=== PATIENT | female | born 1935 | race Caucasian/White ===

== ENCOUNTER → 2023-06-20 16:13 | Outpatient (REF) | payer OTHER, SELFPAY | LOC: RCS 16:13 | PROVIDERS: ATTENDING PHYSICIAN Internal Medicine Cardiovascular Disease; FAMILY PHYSICIAN Nurse Practitioner Primary Care | DX: I48.21 Permanent atrial fibrillation (principal); I50.32 Chronic diastolic (congestive) heart failure; R55 Syncope and collapse | CPT/HCPCS: 93306 ==

== ENCOUNTER → 2023-09-14 15:27 | Outpatient (REF) | payer OTHER, SELFPAY ==
[2023-09-14 16:26] LABS: % Basophils 0.2 % (0-2); % Eosinophils 1.7 % (0-6); % Immature Granulocytes 0.2 % (0-0.5); % Lymphocytes 21.4 % (20.5-51.1); % Neutrophils 61.5 % (42.2-75.2); Absolute Eosinophils 0.1 10^3/uL (0-0.7); Absolute Lymphocytes 0.9 10^3/uL (1.2-3.4); Absolute Monocytes 0.6 10^3/uL (0.1-0.6); Absolute Neutrophils 2.5 10^3/uL (1.4-6.5); Hematocrit 36.3 % (37.0-47.0); Hemoglobin 12.6 g/dL (12.0-16.0); Mean Corp Hgb Conc. 34.7 g/dL (33.0-37.0); Mean Corpuscular Hgb 35.2 pg (27.0-31.0); Mean Corpuscular Volume 101.4 fL (81.0-99.0); Nucleated Red Blood Cells % 0 %; Platelet Count 122 10^3/uL (130-400); Red Blood Cell Count 3.58 10^6/uL (4.20-5.40); Red Cell Dist. Width 13.4 % (11.5-14.5); White Blood Cell Count 4.1 10^3/uL (4.8-10.8)
[2023-09-14 16:41] LABS: ALT (SGPT) 18 U/L (0-35); AST (SGOT) 50 U/L (14-36); Albumin 4.2 g/dl (3.5-5.0); Alkaline Phosphatase 78 U/L (38-126); Blood Urea Nitrogen 19 mg/dl (7-17); Direct Bilirubin 0.1 mg/dl (0.0-0.4); Iron 138 ug/dl (37-170); LDH 318 U/L (120-246); Total Bilirubin 0.9 mg/dl (0.2-1.3); Total Protein 6.8 g/dl (6.3-8.2)
[2023-09-14 16:50] LABS: Percent Saturation 42 % (20-50); Total Iron Binding Capacity 323 ug/dl (265-497)
[2023-09-14 17:48] LABS: Folate > 20.0 ng/ml (2.76-20); Vitamin B12 979 pg/ml (239-931)
[2023-09-17 07:57] LABS: ANA, IgG Reflex to HEp-2 None Detected (None Detected)
== END ==
LOC: REG 15:27
PROVIDERS: ATTENDING PHYSICIAN Internal Medicine Hematology & Oncology; FAMILY PHYSICIAN Nurse Practitioner Primary Care
DX: D69.6 Thrombocytopenia, unspecified (principal); D75.89 Other specified diseases of blood and blood-forming organs
CPT/HCPCS: 36415; 80076; 82565; 82607; 82728; 82746; 82784; 83521; 83540; 83550; 83615; 84155; 84165; 84520; 85025; 85045; 86038; 86334

== ENCOUNTER 2023-09-18 20:47 | Observation (INO) | payer OTHER, SELFPAY ==
[2023-09-18] VITALS (7 sets, daily range): BP systolic 159–184; BP diastolic 66–99; BMI 30.7; BMI 29.5
--- NOTE | 2023-09-18 16:32 | EDRN ---
Dr. Galindo in to see pt.
--- NOTE | 2023-09-18 16:33 | ED.GENMED ---
History of Present Illness
General
Chief Complaint: Back Pain
Source: patient
Exam Limitations: none
Time Seen by Provider: 09/18/23 16:25
History of Present Illness
History of Present Illness:
See MDM
Past History
Past History
ED Past Medical History: Arrthythmia (Atrial fib), HTN and Hypercholesterolemia
ED Past Surgical History: Bowel resection, Cardiac (cardioversion), Cholecystectomy and Orthopedic (Jaswinder knee replacements)
Social History
Tobacco: Non-smoker
Alcohol: Occasional
Drug: None
Personal:
Living: alone
Employment: Retired
Family History
Family History: Other (Noncontributory)
Phy Exam
Physical Exam
Physical Exam:
See MDM
Course
Orders/Labs/Results
Orders:
Orders
09/18/23 16:32
Lidocaine [Lidocaine 4% Patch] 1 patch TOPICAL ONCE ONE
Apply Lidocaine patch(s) to:: low back
Lumbar Spine Complete, 4 View [CR Lumbar Spine Comp Min 4 Vw*] Urgent
Comment:
Reason For Exam: low back pain
09/18/23 17:50
Complete Blood Count/With Diff Urgent
Comprehensive Metabolic Panel Urgent
Abnormal Lab Results
09/18/23
17:50
WBC 4.1 L 10^3/uL
(4.8-10.8)
RBC 3.84 L 10^6/uL
(4.20-5.40)
MCV 100.3 H fL
(81.0-99.0)
MCH 35.2 H pg
(27.0-31.0)
Plt Count 120 L 10^3/uL
(130-400)
MPV 13.2 H fL
(7.4-10.4)
Absolute Lymphs (auto) 0.9 L 10^3/uL
(1.2-3.4)
Monocytes % 13.8 H %
(1.7-9.3)
AST 55 H U/L
(14-36)
09/18/23 17:50
09/18/23 17:50
Vital Signs
Initial and Last Documented VS:
Initial Vital Signs
Temp Pulse Resp BP Pulse Ox
97.8 F 78 18 168/99 98
09/18/23 13:55 09/18/23 13:55 09/18/23 13:55 09/18/23 13:55 09/18/23 13:55
Last Documented Vital Signs
Temp Pulse Resp BP Pulse Ox
97.8 F 76 16 162/73 97
09/18/23 13:55 09/18/23 18:00 09/18/23 18:00 09/18/23 18:00 09/18/23 18:00
MDM/Problems Addressed
Differential Diagnosis Includes:
HPI and MDM Narrative:
88-year-old female presenting for evaluation of back pain. She states the pain has been intermittent and getting worse over the past several weeks. Patient developed low back pain and she walks. After rest, it resolves. He does not go to her
legs. She denies numbness or tingling. She has an outpatient MRI scheduled.
On exam, she is well-appearing toxic. Patient localizes the pain to the paralumbar musculature. Will place lidocaine patch and obtain x-ray. Her extremities are otherwise neurovascularly intact
Physical exam
General: Well appearing and non-toxic
HEENT: protecting airway
Neck: appears supple
CV: No evidence of cyanosis
Resp: No accessory muscle use
Abd: Non-distended
Back: Paralumbar musculature spasm. No midline tenderness
Extremities: No deformities. Both legs neurovascular intact. Negative straight leg raise
Neuro: alert
Psych: Normal affect
Skin: Intact
Problems Addressed including Acute and Chronic Conditions affecting care:
1. Back pain
Acuity: acute on chronic
Prognosis: stable
Details: Will obtain lumbar x-ray but discussed the importance of keeping her MRI appointment. Will place a lidocaine patch
Updates
Lumbar x-ray shows degenerative changes. Given the ongoing symptoms, will admit for PT evaluation and possible MRI
Differential Diagnosis (but not limited to): Lumbar strain, sciatica
Testing considered: urinalysis but she denies symptoms
Drug therapy (if applicable): OTC meds, please see d/c instruction regarding Rx drugs
Amount and/or Complexity of Data Reviewed
Clinical info obtained from: Patient
External data reviewed: N/A
Labs I independently reviewed (but not limited to): White blood cell count normal
Radiology: X-ray independently reviewed: Lumbar x-ray negative for fracture
Pulse Ox: not hypoxic
EKG independently reviewed: N/A
Forepart Rounder: N/A
Critical Care: N/A
Risk of Complication:
Social Determinants of health: Good social support
Discussed with other providers: Admit
Escalation of Care includes Admit/Obs: Given the ongoing pain and concern for unstable environment at home, will admit for PT evaluation
Occasional wrong word or 'sound a like' substitutions may have occurred due to the inherent limitations of voice recognition software. Read the chart carefully and recognize, using context, where substitutions have occurred.
*Critical Care Note
Total Time (30-74mins, 75-104mins- exclusive of procedures): Not Applicable
ED Attending Note
-
Portions of this chart may have been created with voice recognition software.� Occasional wrong word or��sound alike� substitutions may have occurred due to the inherent limitations of voice recognition software.
Discharge Plan
Departure
Patient Disposition: Admit
Date of Disposition: 09/18/23
Time of Disposition: 19:24
Admit to: Med/Surg
Presentation/result/management discussed w/ accepting MD/DO: Hospitalist
Discharge Problem:
Low back pain
Prescriptions:
No Action
furosemide 20 MG tablet
20 mg PO BID
potassium chloride 20 MEQ tablet,ER particles/crystals
20 meq PO BID
warfarin [Jantoven] 1 MG tablet
3 mg PO DAILY
atorvastatin 10 MG tablet
10 mg PO QPM
metoprolol tartrate 50 mg Tablet
50 mg PO BID
multivitamin Tablet
1 tab PO DAILY
acetaminophen 500 mg Tablet
1,000 mg PO BID
escitalopram oxalate [Lexapro] 10 mg Tablet
10 mg PO DAILY
Calcium + D
1 tab PO DAILY
Rx Instructions:
1200 calcium/ 100 Vitamin D3
ranitidine HCl 40 MG tablet
40 mg PO HS
Referrals:
Yfn Will MD [Family Provider] -
Interventions
Interventions:
*Risk Screen - Suicide Last Done: 09/18/23 13:55
*General Assessment Last Done: 09/18/23 13:55
*Neglect/Abuse Screening Last Done: 09/18/23 13:55
ED- Fall Risk Assessment Last Done: 09/18/23 16:25
*ED COVID-19 Vaccine History Last Done: 09/18/23 16:25
ED-Musculoskeletal Assessment Last Done: 09/18/23 16:26
Discharge Date and Time
Print Language: GREEK
--- NOTE | 2023-09-18 16:43 | EDRN ---
Pt voiding on bedpan at this time. Pt stated it was an emergency and said unable to walk w/ walker only w/ w/c not in room.
[2023-09-18] MEDS: LIDOCAINE 4% PATCH 1 PATCH TOPICAL (16:50)
--- NOTE | 2023-09-18 16:55 | EDRN ---
Friends who were w/ pt saw pt at the house and said pt when she got the pain while using w/c to walk bent way to L and backwards and they thought if they were not there pt would have fallen.
--- NOTE | 2023-09-18 17:59 | EDRN ---
Pt's friends informed pt that she was a max assist up the stairs prior to her leaving in ambulance her house to get her belongings and w/out their assist she would have surely fallen. pt was then okay w/ admission for PT evaluation.
[2023-09-18 18:26] LABS: ALT (SGPT) 20 U/L (0-35); AST (SGOT) 55 U/L (14-36); Albumin 4.5 g/dl (3.5-5.0); Alkaline Phosphatase 92 U/L (38-126); Blood Urea Nitrogen 17 mg/dl (7-17); Calcium 9.9 mg/dl (8.4-10.2); Carbon Dioxide 30 mmol/L (22-30); Chloride 100 mmol/L (98-107); Estimated Creatinine Clearance 45 ml/min; Glucose 89 mg/dl (70-99); Potassium 3.7 mmol/L (3.5-5.1); Sodium 138 mmol/L (135-145); Total Bilirubin 1.2 mg/dl (0.2-1.3); Total Protein 7.2 g/dl (6.3-8.2); eGFR > 60.00
[2023-09-18 18:39] LABS: % Basophils 0.2 % (0-2); % Eosinophils 0.7 % (0-6); % Immature Granulocytes 0.2 % (0-0.5); % Lymphocytes 22.1 % (20.5-51.1); % Monocytes 13.8 % (1.7-9.3); Absolute Lymphocytes 0.9 10^3/uL (1.2-3.4); Absolute Monocytes 0.6 10^3/uL (0.1-0.6); Absolute Neutrophils 2.6 10^3/uL (1.4-6.5); Hematocrit 38.5 % (37.0-47.0); Hemoglobin 13.5 g/dL (12.0-16.0); Mean Corp Hgb Conc. 35.1 g/dL (33.0-37.0); Mean Corpuscular Hgb 35.2 pg (27.0-31.0); Mean Corpuscular Volume 100.3 fL (81.0-99.0); Mean Platelet Volume 13.2 fL (7.4-10.4); Nucleated Red Blood Cells % 0 %; Platelet Count 120 10^3/uL (130-400); Red Blood Cell Count 3.84 10^6/uL (4.20-5.40); Red Cell Dist. Width 13.2 % (11.5-14.5); White Blood Cell Count 4.1 10^3/uL (4.8-10.8)
--- NOTE | 2023-09-18 19:58 | HPS.HSE ---
Family Physician
-
Family Physician: Yfn Will
Chief Complaint
-
lower back pain
History of Present Illness
88-year-old female past medical history of spinal stenosis status post laminectomies less than a decade ago, spinal cyst status post resection, paroxysmal atrial fibrillation on Eliquis, hypertension, hyperlipidemia, obstructive sleep apnea, mild
carotid disease presenting with worsening intermittent back pain ongoing for at least a few months if not a year. She states that she ambulates with a walker and sometimes leaves the walker which she thinks may have aggravated her pain. She has
pain in her lower back that radiates across the back. Pain does not radiate to the legs. Pain is worse when she squats or walks. She denies any incontinence. She denies any fevers or chills. She gets sweaty sometimes when she has the pain.
She denies smoking or alcohol use.
Medical History
Past Medical History
Past Medical History: Reports Other ( spinal stenosis status post laminectomies less than a decade ago, spinal cyst status post resection, paroxysmal atrial fibrillation on Eliquis, hypertension, hyperlipidemia, obstructive sleep apnea, mild carotid
disease)
Past Surgical History: Reports Other (Bowel resection, Cardiac (cardioversion), Cholecystectomy and Orthopedic (Jaswinder knee replacements))
Social History
Tobacco: Non-smoker
Alcohol: None
Drug: None
Family History
Family History: Not pertinent
Allergies / Home Medications
Allergies reflects when Allergies were last updated in [facility].
Home Medications with original date entered in [facility]
Allergy/Medication List:
Allergies
Allergy/AdvReac Type Severity Reaction Status Date / Time
spironolactone Allergy Syncopy Verified 09/13/22 11:47
[From Aldactone]
Home Medications
furosemide 20 mg tablet 40 mg PO DAILY 11/13/18
potassium chloride 20 mEq tablet,extended release(part/cryst) 20 meq PO BID 11/13/18
warfarin 1 mg tablet (Jantoven) 3 mg PO DAILY 01/24/19
atorvastatin 10 mg tablet 10 mg PO QPM 03/17/19
metoprolol tartrate 50 mg tablet 50 mg PO BID 07/27/22
acetaminophen 500 mg tablet 1,000 mg PO BID 09/09/22
calcium carbonate 600 mg-vitamin D3 10 mcg (400 unit) tablet (Calcium 600 + D(3)) 1 tab PO DAILY 09/09/22
multivitamin 1 tab PO DAILY 09/09/22
donepezil 5 mg tablet 5 mg PO HS 09/18/23
levothyroxine 50 mcg tablet 50 mcg PO DAILY 09/18/23
metoprolol succinate 50 mg tablet,extended release 24 hr 50 mg PO BID 09/18/23
rivaroxaban 20 mg tablet (Xarelto) 20 mg PO DAILY 09/18/23
vibegron 75 mg tablet (Gemtesa) 75 mg PO DAILY 09/18/23
Review of Systems
-
History Source: Patient
A 12 point ROS was completed and negative except as noted: Yes
Constitutional: Reports No Symptoms
EENT: Reports No Symptoms
Respiratory: Reports No Symptoms
Cardiac: Reports No Symptoms
Abdomen/GI: Reports No Symptoms
: Reports No Symptoms
Musculoskeletal: Reports See HPI
Skin: Reports No Symptoms
Neurological: Reports No Symptoms
Endocrine: Reports No Symptoms
Hematologic/Lymphatic: Reports No Symptoms
Psych: Reports No Symptoms
Physical Exam
Vital Signs
Vital Signs
Temp Pulse Resp BP Pulse Ox
97.8 F 76 16 162/73 97
09/18/23 13:55 09/18/23 18:00 09/18/23 18:00 09/18/23 18:00 09/18/23 18:00
Physical Exam
General: Well Developed, Well Nourished and No Apparent Distress
HEENT: NormoCephalic, Moist mucous membranes and Atraumatic
Respiratory: Clear
Cardiac: S1/S2 and Regular Rhythm; No Murmur or Rub
GI: Soft, Non Tender, Non Distended and Normal Bowel Sounds; No Organomegaly
Rectal: Deferred by Provider
Musculoskeletal: No Clubbing, No Cyanosis, No Edema and Other (no spinal tenderness, straight leg raise test negative )
Skin: No Rash
Neuro: Nonfocal/grossly intact
Laboratory Results
-
09/18/23 17:50
09/18/23 17:50
Laboratory Results
Total Bilirubin 1.2 mg/dl (0.2-1.3) 09/18/23 17:50
AST 55 U/L (14-36) H 09/18/23 17:50
ALT 20 U/L (0-35) 09/18/23 17:50
Alkaline Phosphatase 92 U/L (38-126) 09/18/23 17:50
Data Reviewed
-
Lab Data: Labs Reviewed by me
Old Records: Reviewed
Impression/Plan
-
IMPRESSION:
PLAN:
# Acute on chronic lower back pain secondary to severe spinal stenosis
# History of spinal stenosis status post laminectomies
-Lumbar x-ray shows moderate degenerative disc disease L4-L5, slightly progressed, mild to moderate degenerative disc disease at L1-L2 slightly progressed
-Lumbar MRI from last year shows severe spinal stenosis at L4-L5
-Tylenol, lidocaine patch, tramadol for pain
-Strength and straight leg raise test are normal, clinically no urgent need for MRI however was apparently recommended by Crescencio to have MRI lumbar spine
-Check MRI lumbar spine
-PT/OT
History of spinal cyst status post resection
Mild chronic thrombocytopenia
-Stable
Paroxysmal atrial fibrillation
-Continue xarelto
-Continue metoprolol
Essential hypertension
Mild carotid artery disease
Hyperlipidemia
-Continue statin
Obstructive sleep apnea
Dementia
-continue donepezil
Hypothyroidism
-continue synthroid
Urge Incontinence
-continue Gemtessa
Chronic Lower extremity edema
-no history of CHF in chart
-continue lasix
DNR/DNI
DVT prophylaxis�Eliquis
Regular diet
[2023-09-18] MEDS: ARICEPT 5 MG PO (22:11)
--- NOTE | 2023-09-18 22:42 | W.PN.UPDATE ---
Update Note
Progress Note Update
Notified by nursing patient would like to change code status to FULL code. Upon visit, patient AAOX3. Explained in details of FULL code status, patient reports full understanding. 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
[2023-09-19] MEDS: TYLENOL 650 MG PO (01:41)
[2023-09-19 06:00] VITALS: BMI 29.4
[2023-09-19] MEDS: SYNTHROID 50 MCG PO (06:03)
[2023-09-19 07:00] VITALS: BP 159/98
[2023-09-19] MEDS: LASIX 40 MG PO (08:05)
[2023-09-19] MEDS: OSCAL 500 + D 500 MG PO (08:05)
[2023-09-19] MEDS: TOPROL XL 50 MG PO (08:05)
[2023-09-19] MEDS: KCL 20 MEQ PO (08:05)
[2023-09-19] MEDS: THERAGRAN 1 TABLET PO (08:05)
[2023-09-19] MEDS: XARELTO 15 MG PO (08:05)
[2023-09-19] MEDS: LIDOCAINE 4% PATCH 1 PATCH TOPICAL (08:06)
[2023-09-19 08:58] LABS: Hematocrit 35.4 % (37.0-47.0); Hemoglobin 12.6 g/dL (12.0-16.0); Mean Corp Hgb Conc. 35.6 g/dL (33.0-37.0); Mean Corpuscular Hgb 36.1 pg (27.0-31.0); Mean Corpuscular Volume 101.4 fL (81.0-99.0); Mean Platelet Volume 13.2 fL (7.4-10.4); Platelet Count 116 10^3/uL (130-400); Red Blood Cell Count 3.49 10^6/uL (4.20-5.40); Red Cell Dist. Width 13.2 % (11.5-14.5); White Blood Cell Count 3.3 10^3/uL (4.8-10.8)
[2023-09-19 09:15] LABS: Blood Urea Nitrogen 18 mg/dl (7-17); Calcium 9.2 mg/dl (8.4-10.2); Carbon Dioxide 30 mmol/L (22-30); Chloride 101 mmol/L (98-107); Estimated Creatinine Clearance 43 ml/min; Glucose 89 mg/dl (70-99); Sodium 136 mmol/L (135-145); eGFR > 60.00
[2023-09-19 11:10] VITALS: BP 145/73; PULSE 73
[2023-09-19 11:15] VITALS: BP 145/73; PULSE 73
--- NOTE | 2023-09-19 14:24 | W.DS.TRANS ---
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
-
Discharge Instructions:
Discharge Diagnosis/Procedures Chronic back pain seconadary to spinal stenosis
Diet Regular
Instructions:
Stand-Alone Forms:
Changes to Home Medications: No
Discharge Medications:
DC Medications w/original date entered in [facility]
furosemide 20 mg tablet 40 mg PO DAILY Fluid Retention/Swelling 11/13/18
potassium chloride 20 mEq tablet,extended release(part/cryst) 20 meq PO BID Electrolyte Repletion 11/13/18
atorvastatin 10 mg tablet 10 mg PO QPM High Cholesterol 03/17/19
acetaminophen 500 mg tablet 1,000 mg PO BID Pain 09/09/22
calcium carbonate 600 mg-vitamin D3 10 mcg (400 unit) tablet (Calcium 600 + D(3)) 1 tab PO DAILY Supplement 09/09/22
multivitamin 1 tab PO DAILY Supplement 09/09/22
donepezil 5 mg tablet 5 mg PO HS dementia 09/18/23
levothyroxine 50 mcg tablet 50 mcg PO DAILY Thyroid 09/18/23
metoprolol succinate 50 mg tablet,extended release 24 hr 50 mg PO BID Blood Pressure 09/18/23
rivaroxaban 20 mg tablet (Xarelto) 20 mg PO DAILY Blood Clot Prevention/Tx 09/18/23
vibegron 75 mg tablet (Gemtesa) 75 mg PO DAILY Urinary Issue 09/18/23
lidocaine 4 % topical patch 1 patch topical DAILY #30 ea 09/19/23
Home Medication Changes
Pending Results: No
[2023-09-19 15:00] VITALS: BP 119/63
--- NOTE | 2023-09-19 17:18 | CM ---
Reviewed chart, spoke with patient who stated that she lives at [facility] by herself. She stated that she was independent with all ADLs, personal care, dressing and bathing. She ambulates without device. She is able to cook, clean do
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 Patient has a son nearby who is supportive. Patient stated that she used to work for [employer].
Patient stated that she would like to return home when medically cleared for discharge and did not want VN.
Plan: Case management will continue to follow and assist with discharge planning. Home no needs.
== END 2023-09-19 17:20 | disposition home or self-care (01) ==
LOC: 3 WEST ACU 20:47
PROVIDERS: ADMITTING PHYSICIAN Hospitalist; ATTENDING PHYSICIAN Internal Medicine; EMERGENCY PHYSICIAN Student in an Organized Health Care Education/Training Program; FAMILY PHYSICIAN Internal Medicine Geriatric Medicine
DX: M48.04 Spinal stenosis, thoracic region (principal); M48.061 Spinal stenosis, lumbar region without neurogenic claudication; M51.04 Intervertebral disc disorders with myelopathy, thoracic region; M54.9 Dorsalgia, unspecified; M54.50 Low back pain, unspecified; M41.9 Scoliosis, unspecified; M51.37 Other intervertebral disc degeneration, lumbosacral region; M47.816 Spondylosis without myelopathy or radiculopathy, lumbar region; I10 Essential (primary) hypertension; M51.36 Other intervertebral disc degeneration, lumbar region; E78.00 Pure hypercholesterolemia, unspecified; I48.0 Paroxysmal atrial fibrillation; G89.29 Other chronic pain; D69.6 Thrombocytopenia, unspecified; I77.9 Disorder of arteries and arterioles, unspecified; E78.5 Hyperlipidemia, unspecified; G47.33 Obstructive sleep apnea (adult) (pediatric); F03.90 Unspecified dementia, unspecified severity, without behavioral disturbance, psychotic disturbance, mood disturbance, and anxiety; E03.9 Hypothyroidism, unspecified; N39.41 Urge incontinence; R60.0 Localized edema; Z79.890 Hormone replacement therapy; Z79.01 Long term (current) use of anticoagulants; Z90.49 Acquired absence of other specified parts of digestive tract; Z96.653 Presence of artificial knee joint, bilateral; Z66 Do not resuscitate
CPT/HCPCS: 72110; 72148; 80048; 80053; 85025; 85027; 97162; 97166; 97535; 99285; G0378

== ENCOUNTER → 2023-10-10 16:28 | Outpatient (REF) | payer OTHER, SELFPAY | LOC: RAD 16:28 | PROVIDERS: ATTENDING PHYSICIAN Internal Medicine Hematology & Oncology; FAMILY PHYSICIAN Nurse Practitioner Primary Care | DX: D69.6 Thrombocytopenia, unspecified (principal); D75.89 Other specified diseases of blood and blood-forming organs | CPT/HCPCS: 76705 ==

== ENCOUNTER → 2023-11-24 14:48 | Outpatient (REF) | payer OTHER, SELFPAY | LOC: RAD 14:48 | PROVIDERS: ATTENDING PHYSICIAN Nurse Practitioner Primary Care | DX: R61 Generalized hyperhidrosis (principal); R05.1 Acute cough; D75.89 Other specified diseases of blood and blood-forming organs; R63.4 Abnormal weight loss | CPT/HCPCS: 71260; 74177; Q9967 ==

== ENCOUNTER 2024-07-20 17:30 | Emergency (ER) | payer OTHER, SELFPAY ==
[2024-07-20 17:32] VITALS: BP 199/93
--- NOTE | 2024-07-20 17:42 | ED.MUSCINJ ---
HPI-Injury
General
Chief Complaint: Fall
Time Seen by Provider: 07/20/24 17:35
History of Present Illness-Injury
Initial Injury comments:
Patient is a 89-year-old woman with history of atrial fibrillation on Xarelto presenting to the emergency department after a fall with head strike. Patient states that she usually uses a walker however she was checking out the [employer] store when the
walker was behind her. She lost her footing and fell backwards hitting her head. She did not lose consciousness. No numbness tingling. No weakness. No lightheadedness dizziness prior to the fall. She states that she has a small hematoma to the
back of her head and it hurts there. Denies any other complaints.
Past History
Past History
ED Past Medical History: Arrthythmia (Atrial fib), HTN and Hypercholesterolemia
ED Past Surgical History: Bowel resection, Cardiac (cardioversion), Cholecystectomy and Orthopedic (Jaswinder knee replacements)
Social History
Tobacco: Non-smoker
Alcohol: Occasional
Drug: None
Personal:
Living: alone
Employment: Retired
Family History
Family History: Other (Noncontributory)
Phy Exam
Physical Exam
Physical Exam:
GENERAL: no acute distress
HEENT: Dried blood to the posterior head with a small abrasion, bleeding is controlled, extraocular muscles intact
NECK: no midline tenderness
BACK: no midline tenderness, no other obvious trauma
CHEST: no tenderness, no flail segment, no subcutaneous emphysema, no other obvious trauma
LUNGS: clear to auscultation bilaterally
CARDIOVASCULAR: regular rate and rhythm
ABDOMEN: soft, non-tender, no masses, no other obvious trauma
PELVIS: stable, no obvious injury
EXTREMITIES: moving all extremities, distal pulses intact, no other obvious trauma
NEUROLOGIC: awake, alert x 3, no focal deficits
Injury Course
Orders/Labs/Results
Orders:
Orders
07/20/24 17:35
CT Cervical Spine W/o Iv Contr Urgent
Comment:
Reason For Exam: fall
CT Head W/o Iv Contrast Urgent
Comment:
Reason For Exam: fall
07/20/24 17:44
Tetanus/Diphth/Acelpertussis [Adacel] 0.5 ml IM .ONCE ONE
Procedures
Laceration Closure
scalp:
Status of Wound: clean
Size of Wound in cm: 3
Description of Wound Edges: sharp
Preparation: cleaned with saline
Revision/Debridement: routine- no revision
Wound exploration: explored to base- no FB
Type of Closure: single layer closure
Skin Closure Material: skin dave (4)
MDM/Problems Addressed
Differential Diagnosis Includes:
Patient is a 89-year-old woman presenting to the emergency department after mechanical fall with head strike on thinners. Vitals notable for hypertension and exam shows a small hematoma and dried blood to the posterior head. Concern for traumatic
intracranial injury. Will obtain CT scans. Will clean out wound to evaluate for any underlying lacerations. Will update tetanus.
After cleansing the area there was a 3 cm laceration to the posterior head. Laceration closed with 4 dave without complication. Please see procedure note above. CT scan of the head per my interpretation with no obvious hemorrhage. Official
read about the head and neck negative. Patient ambulatory. Will discharge at this time.
*Critical Care Note
Total Time (30-74mins, 75-104mins- exclusive of procedures): Not Applicable
ED Attending Note
-
Portions of this chart may have been created with voice recognition software.� Occasional wrong word or��sound alike� substitutions may have occurred due to the inherent limitations of voice recognition software.
Discharge Plan
Departure
Patient Disposition: Home (Routine Discharge)
Date of Disposition: 07/20/24
Time of Disposition: 18:20
Patient with high blood pressure during this ER visit?: Yes
Discharge Problem:
Fall, Laceration
Instructions: Head Injury in Adults (DC), Laceration Repair With Dave (DC)
Prescriptions:
No Action
furosemide 20 MG tablet
40 mg PO DAILY
potassium chloride 20 MEQ tablet,ER particles/crystals
20 meq PO BID
atorvastatin 10 MG tablet
10 mg PO QPM
multivitamin Tablet
1 tab PO DAILY
acetaminophen 500 mg Tablet
1,000 mg PO BID
calcium carbonate-vitamin D3 [Calcium 600 + D(3)] 600 mg-10 mcg (400 unit) Tablet
1 tab PO DAILY
donepezil 5 mg tablet
5 mg PO HS
metoprolol succinate 50 mg tablet extended release 24 hr
50 mg PO BID
levothyroxine 50 mcg tablet
50 mcg PO DAILY
Xarelto 20 mg Tablet
20 mg PO DAILY
Gemtesa 75 mg tablet
75 mg PO DAILY
lidocaine 4 % Adhesive Patch,Medicated
1 patch topical DAILY Qty: 30 0RF
Activity Restrictions/Additional Instructions:
You were seen in the Emergency Department today for a fall. While you were here we performed CT scan, which was reassuring. Please make sure you have your dave removed in 7-10 days by your primary care doctor.
We would like for you to follow up with your primary care physician for further evaluation. If you experience fever, worsening of your symptoms, or develop any other new or concerning symptoms, please return to the Emergency Department immediately.
Please see the attached sheet for additional information.
You do have4 dave. Please follow-up with your PCP to have them removed in 7-10 days. Please keep the area clean and dry for the first 24 hours. Afterwards you may wash the area. If you develop any fevers, chills, redness or drainage from the site
please come back to the emergency department.
Interventions
Interventions:
*General Assessment Last Done: 07/20/24 17:32
Discharge Date and Time
Print Language: PALAUAN
[2024-07-20] MEDS: ADACEL 0.5 ML IM (18:04)
== END 2024-07-20 19:08 | disposition home or self-care (01) ==
LOC: EMR 17:30
PROVIDERS: EMERGENCY PHYSICIAN Student in an Organized Health Care Education/Training Program; FAMILY PHYSICIAN Nurse Practitioner Primary Care
DX: S01.01XA Laceration without foreign body of scalp, initial encounter (principal); S00.03XA Contusion of scalp, initial encounter; W01.0XXA Fall on same level from slipping, tripping and stumbling without subsequent striking against object, initial encounter; Y92.89 Other specified places as the place of occurrence of the external cause; Z23 Encounter for immunization; I48.91 Unspecified atrial fibrillation; I10 Essential (primary) hypertension; E78.00 Pure hypercholesterolemia, unspecified; Z79.01 Long term (current) use of anticoagulants; Z96.653 Presence of artificial knee joint, bilateral; Z98.0 Intestinal bypass and anastomosis status; Z90.49 Acquired absence of other specified parts of digestive tract; Z88.8 Allergy status to other drugs, medicaments and biological substances
CPT/HCPCS: 99284; 12002; 90471; 70450; 72125; 90715

== ENCOUNTER 2024-11-27 12:26 | Inpatient (IN) | payer OTHER, SELFPAY ==
[2024-11-24] VITALS (9 sets, daily range): BP systolic 136–183; BP diastolic 55–86; PULSE 74–91; BMI 23.8
[2024-11-24 16:06] LABS: Hematocrit 36.3 % (37.0-47.0); Hemoglobin 12.4 g/dL (12.0-16.0); Mean Corp Hgb Conc. 34.2 g/dL (33.0-37.0); Mean Corpuscular Volume 105.8 fL (81.0-99.0); Nucleated Red Blood Cells % 0 %; Red Cell Dist. Width 12.2 % (11.5-14.5)
[2024-11-24 16:18] LABS: ALT (SGPT) 29 U/L (0-35); AST (SGOT) 62 U/L (14-36); Albumin 4.1 g/dl (3.5-5.0); Alkaline Phosphatase 79 U/L (38-126); Blood Urea Nitrogen 24 mg/dl (7-17); Calcium 8.9 mg/dl (8.4-10.2); Carbon Dioxide 29 mmol/L (22-30); Chloride 105 mmol/L (98-107); Estimated Creatinine Clearance 37 ml/min; Glucose 96 mg/dl (70-99); Potassium 4.1 mmol/L (3.5-5.1); Sodium 139 mmol/L (135-145); Total Protein 6.6 g/dl (6.3-8.2); eGFR > 60.00
--- NOTE | 2024-11-24 16:46 | ED.GENMED ---
History of Present Illness
<JEAN Jolley - Last Filed: 11/24/24 21:47>
General
Chief Complaint: Fall
Source: patient
Exam Limitations: none
Time Seen by Provider: 11/24/24 16:40
Nursing documentation reviewed up to this point in time: agreed with
History of Present Illness
History of Present Illness:
Patient is an 89-year-old female with a past medical history of A-fib on Xarelto, hypertension hyperlipidemia cognitive impairment skin cancer presents to the ER for evaluation. Patient reports around 12 PM she was leaning to get something on the
floor and when she tried to get up she fell back though she did not hit her head. She could not get herself off the floor. She was on the floor for several hours and crawled herself to her phone and called EMS. When EMS presented she was not able
to stand.
She reports she does have known cognitive issues though lives alone. She was recently started on Rivastigmine.
She denies any chest pain shortness of breath fever chills..
Past History
<JEAN Jolley - Last Filed: 11/24/24 21:47>
Past History
ED Past Medical History: Arrthythmia (Atrial fib), HTN and Hypercholesterolemia
ED Past Surgical History: Bowel resection, Cardiac (cardioversion), Cholecystectomy and Orthopedic (Jaswinder knee replacements)
Social History
Tobacco: Non-smoker
Alcohol: Occasional
Drug: None
Personal:
Living: alone
Employment: Retired
Family History
Family History: Other (Noncontributory)
Phy Exam
<JEAN Jolley - Last Filed: 11/24/24 21:47>
General Physical Exam
General Presentation: no apparent distress
General age: appears stated age
General Skin: warm and dry
General Habitus: normal
General Mental: alert
General Hydration: dry mucous membranes
Course
<JEAN Jolley - Last Filed: 11/24/24 21:47>
Orders/Labs/Results
Orders:
Orders
11/24/24 15:44
CT Head W/o Iv Contrast Urgent
Comment:
Reason For Exam: fall
11/24/24 15:49
CMP [Comprehensive Metabolic Panel] Urgent
Complete Blood Count/With Diff Urgent
Creatine Phosphokinase Urgent
Comment: ADD ON
TSH Urgent
Comment: ADD ON
Vitamin B12 Urgent
Comment: ADD ON
11/24/24 17:41
Urinalysis Reflex To Culture Urgent
Date Specimen was Collected: 11/24/24
Time Specimen was Collected: 17:25
Urine Microscopic Reflex Cult Urgent
11/24/24 17:55
Add On- LAB Urgent
Tests Added?: cpk
11/24/24 19:15
0.9% Sodium Chloride 500 ml [Nss] 500 ml IV BOLUS
11/24/24 19:41
Orthostatic VS- Treatment ONCE
11/24/24 21:11
Electrocardiogram (*1) Stat
Reason for Study: Other
Other Reason for Exam: chest pain
EKG- Treatment ONCE
11/24/24 21:32
Admit/Transfer Patient As Directed
Co-Sign Provider:
Level of Care: Observation services
Assign to:: Telemetry
Physician / Group: nikky
Diagnosis: fall
Reason for Telemetry: Arrhythmia
Date to Stop Telemetry: 11/27/24
Time to Stop Telemetry: 11:00
Code Status As Directed
Resuscitation Status: Full Code
PRN Pain Medication Management As Directed
May give lesser potent ordered pain med per pt: Yes
preference::
Protocol:: Medication orders for pain may be administered in a
manner that supports deferring to patient preference
when the pt is:
- Requesting an ordered lesser potent pain medication.
Least to most potent pain medications are defined
as: acetaminophen < NSAID < tramadol < opioids
(morphine, oxycodone, hydromorphone).
- Requesting a lesser dose of the same medication IF
ORDERED.
- Requesting a less intrusive route of administration
if both routes are prescribed by the provider (PO <
IV).
11/24/24 21:37
Add On- LAB Routine
Tests Added?: tsh ,b12
11/27/24 11:00
DC Protocol for Telemetry ONCE
Abnormal Lab Results
11/24/24 11/24/24
15:49 17:41
RBC 3.43 L 10^6/uL
(4.20-5.40)
Hct 36.3 L %
(37.0-47.0)
MCV 105.8 H fL
(81.0-99.0)
MCH 36.2 H pg
(27.0-31.0)
Plt Count 87 L 10^3/uL
(130-400)
Absolute Lymphs (auto) 0.6 L 10^3/uL
(1.2-3.4)
Absolute Monos (auto) 0.7 H 10^3/uL
(0.1-0.6)
Neutrophils % 78.9 H %
(42.2-75.2)
Lymphocytes % 8.8 L %
(20.5-51.1)
Monocytes % 11.5 H %
(1.7-9.3)
BUN 24 H mg/dl
(7-17)
AST 62 H U/L
(14-36)
Creatine Kinase 330 H U/L
(30-135)
Urine Ketones 1+ A
(Negative)
Ur Occult Blood Reflex 1+ A
(Negative)
Urine Bacteria (Reflex) Few A
(Negative)
11/24/24 15:49
11/24/24 15:49
Vital Signs
Initial and Last Documented VS:
Initial Vital Signs
Temp Pulse Resp BP Pulse Ox
97.5 F 83 16 154/84 98
11/24/24 15:28 11/24/24 15:28 11/24/24 15:28 11/24/24 15:28 11/24/24 15:28
Last Documented Vital Signs
Temp Pulse Resp BP Pulse Ox
98.1 F 73 16 141/55 97
11/24/24 19:14 11/24/24 21:00 11/24/24 21:00 11/24/24 21:00 11/24/24 18:15
Director Of Athletics consulted with Physician
Director Of Athletics consulted with physician?: Yes
Name of Physician Consulted: Elizabeth
<Justice Johnson MD - Last Filed: 11/24/24 22:04>
Orders/Labs/Results
Orders:
Orders
11/24/24 15:44
CT Head W/o Iv Contrast Urgent
Comment:
Reason For Exam: fall
11/24/24 15:49
CMP [Comprehensive Metabolic Panel] Urgent
Complete Blood Count/With Diff Urgent
Creatine Phosphokinase Urgent
Comment: ADD ON
TSH Urgent
Comment: ADD ON
Vitamin B12 Urgent
Comment: ADD ON
11/24/24 17:41
Urinalysis Reflex To Culture Urgent
Date Specimen was Collected: 11/24/24
Time Specimen was Collected: 17:25
Urine Microscopic Reflex Cult Urgent
11/24/24 17:55
Add On- LAB Urgent
Tests Added?: cpk
11/24/24 19:15
0.9% Sodium Chloride 500 ml [Nss] 500 ml IV BOLUS
11/24/24 19:41
Orthostatic VS- Treatment ONCE
11/24/24 21:11
Electrocardiogram (*1) Stat
Reason for Study: Other
Other Reason for Exam: chest pain
EKG- Treatment ONCE
11/24/24 21:32
Admit/Transfer Patient As Directed
Co-Sign Provider:
Level of Care: Observation services
Assign to:: Telemetry
Physician / Group: nikky
Diagnosis: fall
Reason for Telemetry: Arrhythmia
Date to Stop Telemetry: 11/27/24
Time to Stop Telemetry: 11:00
Code Status As Directed
Resuscitation Status: Full Code
PRN Pain Medication Management As Directed
May give lesser potent ordered pain med per pt: Yes
preference::
Protocol:: Medication orders for pain may be administered in a
manner that supports deferring to patient preference
when the pt is:
- Requesting an ordered lesser potent pain medication.
Least to most potent pain medications are defined
as: acetaminophen < NSAID < tramadol < opioids
(morphine, oxycodone, hydromorphone).
- Requesting a lesser dose of the same medication IF
ORDERED.
- Requesting a less intrusive route of administration
if both routes are prescribed by the provider (PO <
IV).
11/24/24 21:37
Add On- LAB Routine
Tests Added?: tsh ,b12
11/27/24 11:00
DC Protocol for Telemetry ONCE
Abnormal Lab Results
11/24/24 11/24/24
15:49 17:41
RBC 3.43 L 10^6/uL
(4.20-5.40)
Hct 36.3 L %
(37.0-47.0)
MCV 105.8 H fL
(81.0-99.0)
MCH 36.2 H pg
(27.0-31.0)
Plt Count 87 L 10^3/uL
(130-400)
Absolute Lymphs (auto) 0.6 L 10^3/uL
(1.2-3.4)
Absolute Monos (auto) 0.7 H 10^3/uL
(0.1-0.6)
Neutrophils % 78.9 H %
(42.2-75.2)
Lymphocytes % 8.8 L %
(20.5-51.1)
Monocytes % 11.5 H %
(1.7-9.3)
BUN 24 H mg/dl
(7-17)
AST 62 H U/L
(14-36)
Creatine Kinase 330 H U/L
(30-135)
Urine Ketones 1+ A
(Negative)
Ur Occult Blood Reflex 1+ A
(Negative)
Urine Bacteria (Reflex) Few A
(Negative)
11/24/24 15:49
11/24/24 15:49
Vital Signs
Initial and Last Documented VS:
Initial Vital Signs
Temp Pulse Resp BP Pulse Ox
97.5 F 83 16 154/84 98
11/24/24 15:28 11/24/24 15:28 11/24/24 15:28 11/24/24 15:28 11/24/24 15:28
Last Documented Vital Signs
Temp Pulse Resp BP Pulse Ox
98.1 F 73 16 141/55 97
11/24/24 19:14 11/24/24 21:00 11/24/24 21:00 11/24/24 21:00 11/24/24 18:15
<JEAN Jolley - Last Filed: 11/24/24 21:47>
MDM/Problems Addressed
Differential Diagnosis Includes:
Intracranial hemorrhage, dehydration, rhabdomyolysis
MDM/Problems Addressed:
As documented patient is an 89-year-old female with cognitive issues does live alone reached over to get something on the ground and fell back was unable to get herself off the floor. She crawled and got her phone. She was on the floor for the
past several hours she denies hitting her head however she is on Xarelto CAT scan negative no obvious tender. She is dry on exam and her BUN is elevated. She was given fluids. CPK elevated at 330. Urinalysis is negative for infection. With
assistance and with walker walking was attempted however patient unable to walk even with assistance. Will need case management for additional assistance at home or possible placement.
Discussed with ED physician who evaluated patient.
Chronic conditions affecting care:
Cognitive issues, lives alone, A-fib on anticoagulation
<JEAN Jolley - Last Filed: 11/24/24 21:47>
*Radiology
Radiology exam reviewed: radiology read reviewed
*Pulse Oximetry
SaO2: 98
Oxygen Mode of Delivery: Room air
Patient hypoxic: no
*Critical Care Note
Total Time (30-74mins, 75-104mins- exclusive of procedures): Not Applicable
ED Attending Note
<JEAN Jolley - Last Filed: 11/24/24 21:47>
-
Portions of this chart may have been created with voice recognition software.� Occasional wrong word or��sound alike� substitutions may have occurred due to the inherent limitations of voice recognition software.
<Justice Johnson MD - Last Filed: 11/24/24 22:04>
ED Attending Note
Patient seen and examined by attending physician: Yes
ED Attending Note:
Patient who utilizes walker at baseline, with frequent falls, presents to ED secondary to generalized weakness, after losing her balance and falling backwards, when she stood up from cleaning her cats litter. Denies hitting her head. Denies loss
of consciousness. After she fell down, due to weakness, patient was unable to pick herself up. Patient tried for 2 hours, but finally called her neighbors, who subsidy called 911 for assistance. Denies recent illness. Denies recent change in
medications or diet. Denies loss of appetite. Denies loss of sensation or focal weakness. Denies difficulty with speech. Denies headache or dizziness. Denies blurred vision.
Physical Exam
General: mild distress, not acutely ill. afebrile. weak appearing
Head: nc/at. eomi
Neck: supple. normal range of motion.
Heart: s1/s2 regular rate and rhythm
Lungs: no acute respiratory distress. clear bilaterally
Abdomen: normal bowel sounds. not tender.
Neuro: alert and oriented x 3. no focal neurological deficits
Skin: no rash
Psychiatric: well kept. interactive and cooperative
Extremities: LE b/l pitting edema. no calf tenderness.
Patient with an unremarkable workup in ED, including blood work and imaging studies. However, patient even with use of walker, unable to support her weight due to weakness. As such, patient unsafe to be discharged at this time. Patient will be
admitted for further evaluation and treatment, including likely physical therapy evaluation.
Discharge Plan
Departure
Patient Disposition: Admit
Date of Disposition: 11/24/24
Time of Disposition: 21:43
Admit to: Med/Surg
Admit to doctor: hospitalist
Presentation/result/management discussed w/ accepting MD/DO: Hospitalist
Patient with high blood pressure during this ER visit?: Yes
Condition: Fair
Covid-19: Not Applicable
Discharge Problem:
Fall, Acute dehydration, Weakness
Prescriptions:
No Action
furosemide 20 MG tablet
40 mg PO DAILY
potassium chloride 20 MEQ tablet,ER particles/crystals
20 meq PO BID
atorvastatin 10 MG tablet
10 mg PO HS
multivitamin Tablet
1 tab PO DAILY
acetaminophen 500 mg Tablet
1,000 mg PO BID
calcium carbonate-vitamin D3 [Calcium 600 + D(3)] 600 mg-10 mcg (400 unit) Tablet
2 tab PO DAILY
metoprolol succinate 50 mg tablet extended release 24 hr
50 mg PO BID
Xarelto 20 mg Tablet
20 mg PO DAILY
levothyroxine 75 mcg Tablet
75 mcg PO DAILY
rivastigmine 4.6 mg/24 hour Patch 24 Hour
4.6 mg TRANSDERMAL DAILY
Referrals:
Sravani Pelaez CRNP [Family Provider, Internal Medicine]
Discharge Date and Time
Print Language: BULGARIAN
[2024-11-24 17:00] LABS: Platelet Count 87 10^3/uL (130-400)
[2024-11-24 17:50] LABS: Urine Character Clear (Clear)
[2024-11-24 18:12] LABS: Urine Red Blood Cell 0-2 /HPF (0-2); Urine Squamous Cell 0-2 /LPF (Few); Urine White Cell 0-2 /HPF (0-5)
--- NOTE | 2024-11-24 18:20 | EDRN ---
Patient stated that she was cleaning up her cat's litter box and fell. Patient stated that she was unable to get up from the floor. Patient stated that she was on the floor for about 3 hours before she was finally able to reach the phone. Patient
stated 'I told someone earlier that my son won't help me. Can you please change that. He said he will be able to help me.'
[2024-11-24] MEDS: NSS 500 IV (19:25)
--- NOTE | 2024-11-24 21:35 | HPS.HSE ---
Family Physician
-
Family Physician: Sravani Pelaez
Chief Complaint
-
fall
History of Present Illness
89-year-old female past medical history of chronic back pain secondary to spinal stenosis status post laminectomy, spinal cyst status post resection, paroxysmal atrial fibrillation on Xarelto, hypothyroidism, hypertension, hyperlipidemia,
obstructive sleep apnea, mild carotid artery disease, mild cognitive impairment, urge incontinence, chronic lower extremity edema, presenting for follow-up. At 12 PM she was bending down to pickle processor the litter from her cat and she lost her balance
and fell on the ground. She did not hit her head. She denies passing out. She could not get herself off the floor. She was on the floor for several hours and crawled herself to the floor and called EMS. She was not able to stand for EMS. She
lives alone. She was recently started on rivastigmine. She denies any chest pain or shortness of breath or fevers or chills or nausea or vomiting or diarrhea or urinary symptoms.
She had another similar fall a week ago. She occasionally does fall.
She states that for the past year whenever she ambulates with a walker she leans to the left side. When she turns her head she sometimes gets dizzy. She has bilateral knee replacements placed greater than 20 years ago which sometimes ache. She
also sometimes get numbness and decree sensation of her bilateral feet and has difficulty feeling the ground.
She used to be a heavy alcohol drinker. Denies alcohol currently. Denies smoking.
Medical History
Past Medical History
Past Medical History: Reports Other (chronic back pain secondary to spinal stenosis status post laminectomy, spinal cyst status post resection, paroxysmal atrial fibrillation on Xarelto, hypothyroidism, hypertension, hyperlipidemia, obstructive
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
Past Surgical History: Reports Other (Bowel resection, Cardiac (cardioversion), Cholecystectomy and Orthopedic (Jaswinder knee replacements)))
Social History
Tobacco: Non-smoker
Alcohol: Former
Drug: None
Family History
Family History: Not pertinent
Allergies / Home Medications
Allergies reflects when Allergies were last updated in [employer].
Home Medications with original date entered in [employer]
Allergy/Medication List:
Allergies
Allergy/AdvReac Type Severity Reaction Status Date / Time
spironolactone (From Allergy Syncopy Verified 11/24/24 19:30
Aldactone)
Home Medications
furosemide 20 mg tablet 40 mg PO DAILY Fluid Retention/Swelling 11/13/18
potassium chloride 20 mEq tablet,extended release(part/cryst) 20 meq PO BID Electrolyte Repletion 11/13/18
atorvastatin 10 mg tablet 10 mg PO HS High Cholesterol 03/17/19
acetaminophen 500 mg tablet 1,000 mg PO BID Pain 09/09/22
calcium 600 mg (as carbonate)-vitamin D3 10 mcg (400 unit) tablet (Calcium 600 + D(3)) 2 tab PO DAILY Supplement 09/09/22
multivitamin 1 tab PO DAILY Supplement 09/09/22
metoprolol succinate 50 mg tablet,extended release 24 hr 50 mg PO BID Blood Pressure 09/18/23
rivaroxaban 20 mg tablet (Xarelto) 20 mg PO DAILY Blood Clot Prevention/Tx 09/18/23
levothyroxine 75 mcg tablet 75 mcg PO DAILY 11/24/24
rivastigmine 4.6 mg/24 hour transdermal patch 4.6 mg transdermal DAILY 11/24/24
Review of Systems
-
History Source: Patient
A 12 point ROS was completed and negative except as noted: Yes
Constitutional: Reports No Symptoms
EENT: Reports No Symptoms
Respiratory: Reports No Symptoms
Cardiac: Reports No Symptoms
Abdomen/GI: Reports No Symptoms
: Reports No Symptoms
Musculoskeletal: Reports No Symptoms
Skin: Reports No Symptoms
Neurological: Reports No Symptoms
Endocrine: Reports No Symptoms
Hematologic/Lymphatic: Reports No Symptoms
Psych: Reports No Symptoms
Physical Exam
Vital Signs
Vital Signs
Temp Pulse Resp BP Pulse Ox
98.1 F 73 16 141/55 97
11/24/24 19:14 11/24/24 21:00 11/24/24 21:00 11/24/24 21:00 11/24/24 18:15
Physical Exam
General: Well Developed, Well Nourished and No Apparent Distress
HEENT: NormoCephalic, Moist mucous membranes and Atraumatic
Respiratory: Clear
Cardiac: S1/S2 and Regular Rhythm; No Murmur or Rub
GI: Soft, Non Tender, Non Distended and Normal Bowel Sounds; No Organomegaly
Rectal: Deferred by Provider
Musculoskeletal: No Clubbing, No Cyanosis and No Edema
Skin: No Rash
Neuro: Nonfocal/grossly intact
Laboratory Results
-
11/24/24 15:49
11/24/24 15:49
Laboratory Results
Total Bilirubin 0.9 mg/dl (0.2-1.3) 11/24/24 15:49
AST 62 U/L (14-36) H 11/24/24 15:49
ALT 29 U/L (0-35) 11/24/24 15:49
Alkaline Phosphatase 79 U/L (38-126) 11/24/24 15:49
Data Reviewed
-
Lab Data: Labs Reviewed by me
Old Records: Reviewed
Impression/Plan
-
IMPRESSION:
PLAN:
# Ambulatory dysfunction/fall
# Chronic disequilibrium/gait dysfunction possibly secondary to orthostatic hypotension versus peripheral neuropathy from prior alcohol use
- CK 300
- Urinalysis negative
- IV fluids given
-Check orthostatic vital signs
- PT OT/case management
- Outpatient follow-up with neurology
Chronic back pain secondary to spinal stenosis status post laminectomies
History of bilateral knee replacements
Spinal cyst status post resection
Paroxysmal atrial fibrillation
- Continue Xarelto
- Continue metoprolol
Hypothyroidism
- Continue levothyroxine
Essential hypertension
Hyperlipidemia
- Continue statin
Obstructive sleep apnea
Mild carotid artery disease
Mild cognitive impairment
- Continue rivastigmine recently started
Urge incontinence
Chronic lower extremity edema
- Hold Lasix
Former alcohol drinker
Full code
DVT prophylaxis Xarelto
Regular diet
[2024-11-24] MEDS: TYLENOL 650 MG PO (22:43)
[2024-11-24] MEDS: LIPITOR 10 MG PO (22:43)
[2024-11-25] VITALS (9 sets, daily range): BP systolic 137–174; BP diastolic 55–89; PULSE 63–81; BMI 28.0
[2024-11-25 00:08] LABS: TSH 1.30 uIU/ml (0.47-4.68)
[2024-11-25 00:27] LABS: Vitamin B12 851 pg/ml (239-931)
[2024-11-25] MEDS: TYLENOL 650 MG PO ×3 (02:59→18:40)
--- NOTE | 2024-11-25 03:27 | PTCARENOTE ---
Received pt from ER. Pt is on playground monitor- sinus rhythm. AO*3, forgetful, and confused at times. Bed alarm in place. Call noland within reach.
[2024-11-25] MEDS: SYNTHROID 75 MCG PO (05:12)
[2024-11-25] MEDS: OSCAL 500 + D 1000 MG PO (09:17)
[2024-11-25] MEDS: THERAGRAN 1 TABLET PO (09:18)
[2024-11-25] MEDS: KCL 20 MEQ PO ×2 (09:18→20:29)
[2024-11-25] MEDS: EXELON PATCH 4.6 MG TRANSDERM (09:18)
[2024-11-25] MEDS: TOPROL XL 50 MG PO ×2 (09:18→20:29)
[2024-11-25 09:23] LABS: Hematocrit 37.0 % (37.0-47.0); Hemoglobin 12.6 g/dL (12.0-16.0); Mean Corp Hgb Conc. 34.1 g/dL (33.0-37.0); Mean Corpuscular Volume 109.8 fL (81.0-99.0); Platelet Count 83 10^3/uL (130-400); Red Cell Dist. Width 12.5 % (11.5-14.5)
[2024-11-25 09:53] LABS: Absolute Neutrophils -Man Diff 1.3 10^3/uL (1.4-6.5); Anisocytosis Slight; Hypochromasia 1+; Macrocytosis Few; Normal RBC Morphology No; Platelets Checked Yes; Total Cells Counted 100
[2024-11-25] MEDS: XARELTO 20 MG PO (09:53)
[2024-11-25 10:11] LABS: ALT (SGPT) 29 U/L (0-35); AST (SGOT) 57 U/L (14-36); Albumin 3.7 g/dl (3.5-5.0); Alkaline Phosphatase 68 U/L (38-126); Blood Urea Nitrogen 12 mg/dl (7-17); Calcium 8.8 mg/dl (8.4-10.2); Carbon Dioxide 28 mmol/L (22-30); Chloride 105 mmol/L (98-107); Estimated Creatinine Clearance 50 ml/min; Glucose 92 mg/dl (70-99); Potassium 3.5 mmol/L (3.5-5.1); Sodium 138 mmol/L (135-145); Total Protein 6.2 g/dl (6.3-8.2); eGFR > 60.00
--- NOTE | 2024-11-25 10:59 | CM ---
Patient seen bedside, initial assessment completed. Patient admitted for a fall.
Patient resides alone in an 8th floor apartment at [facility]. Elevator access. Patient ambulates w/ a rollator stating she cannot walk without it. Patient is independent w/ ADLs and personal care. Patient has a shower grab bar and shower
chair. Patient has a CPAP that she does not use. Denies SNF/HC hx.
Address, point of contact and insurance verified
PCP: Sravani Pelaez NP
Pharmacy: [facility]
Patient admitted under obs services. GRUBER form verbally reviewed, copy provided, copy on chart
Therapy recommending SNF at d/c
Plan: SNF if patient is agreeable. Will need auth
--- NOTE | 2024-11-25 14:49 | W.PN.HOSP.TC ---
Today's Communication/Plan
-
Assessment / Plan
Assessment / Plan
NAD
Scleral Anicteric
MMM
No JVD
CTABL
RRR, S1/S2
Soft, NT, ND, BS+
Warm, Dry
AAOx3
Calm
Fall mechanical
Unable to get back up
CT brain negative
Check orthostatics
2D echocardiogram
Brain MRI
Carotid ultrasound
Hyperlipidemia
Statin
Hypothyroidism
Continue levothyroxine
Paroxysmal atrial fibrillation
Xarelto
Anticipated Discharge: 24 - 48 hours
Subjective/Interval History
-
Date of Service: November 25, 2024
Seen and examined. No new complaints. No acute overnight events.
Objective Data
-
Labs:
Laboratory Results
11/25/24
08:26
WBC 2.9 L
Hgb 12.6
Hct 37.0
Plt Count 83 L
Sodium 138
Potassium 3.5
Chloride 105
Carbon Dioxide 28
BUN 12
Creatinine 0.7
Glucose 92
Calcium 8.8
Total Bilirubin 1.4 H
AST 57 H
ALT 29
Alkaline Phosphatase 68
Vital Signs:
Vital Signs
Temp Pulse Resp BP Pulse Ox
97.8 F 71 18 138/77 97
11/25/24 11:38 11/25/24 09:18 11/25/24 11:38 11/25/24 09:18 11/25/24 11:38
I&O
11/24/24 11/25/24 11/26/24
06:59 06:59 06:59
Intake Total 980 / 980
Output Total 1350 / 1350 300 / 300
Balance -370 / -370 -300 / -300
--- NOTE | 2024-11-25 18:27 | PTCARENOTE ---
pt c/o feeling funny and warm. pt with flushed face. pt found aflutter on monitor. EKG w/ Afib, Temp 98.7, BP 171/78 HR 82 97% on room air. c/o band like feeling on the head. Dr. Rios Cool notified. no new orders at this time.
[2024-11-25] MEDS: LIPITOR 10 MG PO (20:29)
[2024-11-26] VITALS (8 sets, daily range): BP systolic 122–182; BP diastolic 56–91; PULSE 67–83
[2024-11-26] MEDS: SYNTHROID 75 MCG PO (04:51)
[2024-11-26] MEDS: XARELTO 20 MG PO (08:21)
[2024-11-26] MEDS: EXELON PATCH 4.6 MG TRANSDERM (08:21)
[2024-11-26] MEDS: THERAGRAN 1 TABLET PO (08:21)
[2024-11-26] MEDS: KCL 20 MEQ PO ×2 (08:21→20:21)
[2024-11-26] MEDS: OSCAL 500 + D 1000 MG PO (08:21)
[2024-11-26] MEDS: TOPROL XL 50 MG PO ×2 (08:21→20:21)
[2024-11-26 09:37] LABS: Hematocrit 39.3 % (37.0-47.0); Hemoglobin 13.0 g/dL (12.0-16.0); Mean Corp Hgb Conc. 33.1 g/dL (33.0-37.0); Mean Corpuscular Volume 107.1 fL (81.0-99.0); Nucleated Red Blood Cells % 0 %; Platelet Count 92 10^3/uL (130-400); Red Cell Dist. Width 12.4 % (11.5-14.5)
--- NOTE | 2024-11-26 09:56 | CON.NEURO4 ---
Addendum entered and electronically signed by Pantera Levi MD 11/26/24 17:00:
Studies reviewed.
I have personally examined the patient. I reviewed and agree with the RECEIVING WEIGHER's Note.
My addenda:
Awake, alert, interactive. No acute distress.
Speech intact. Some confused content
Follows 2-step requests w/o difficulty. No tremor.
Extra-ocular movements grossly intact.
Facial movements full and symmetric. Hearing intact to normal conversational volume.
Normal UE movements bilaterally.
Neck: full ROM.
Chest: no dyspnea
Heart: no JVD
Ext: (-) Clubbing, (-) Cyanosis, (-) Edema
IMPRESSIONS/RECOMMENDATIONS:
Abrupt onset of gait dysfunction with the patient being unable to stand up after falling to the floor. 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
Not clear that the patient's small ischemic stroke is the etiology for the patient's inability to get up off the floor. Differential diagnosis includes the possibility of deconditioning as well as orthostasis
Continue rivaroxaban
Continue atorvastatin
Check orthostatic blood pressures
Rehabilitation evaluation and treatment
We will follow as needed.
D/W patient / family / nursing
All questions answered.
Will continue to follow patient.
Original Note:
Documented by User: Marina Taylor NP 11/26/24 13:59
Consultation - Neurology 4
-
CONSULTING PHYSICIAN: Pantera Levi MD
REFERRING PHYSICIAN: Hospitalists/Dr. Cool
DICTATED BY: JEAN Kelsey
DATE/TIME OF REQUEST: 11/26/24
DATE/TIME OF CONSULTATION: 11/26/24
Reason for Consultation: Fall, stroke on MRI brain
History of Present Illness:
This is an 89-year-old female who has presented to the hospital on 11/24/24 with report of a fall. Patient reports that two days ago on 11/24/24 she was leaning over to pick something up off of the floor and when she tried to stand back up she lost
her balance and fell backwards on to the floor. She was unable to get back up and was on the floor for several hours before she was able to crawl to her phone and call EMS. CT head was obtained on arrival and is negative for any acute abnormalities.
She was not a candidate for TNK/IAT due to low NIHSS, outside of time window, and she is taking Xarelto. MRI brain was obtained on 11/25/24 and demonstrates a subacute right centrum semiovale ischemic infarct. Patient denies any headache, dizziness,
vision changes, speech/swallow difficulty, numbness, and weakness. Per her last outpatient PCP encounter, she has been having memory issues, MOCA was 17/30. She is unable to afford neuropsychological testing. She did not tolerate donepezil due to
nightmares, this was stopped and she was recently started on rivastigmine. Patient reports that she occasionally misses doses of her medications or drops them on the ground and doesn't find them until later. She is living alone and still drives
short distances.
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
Surgical History: Cardioversion, cholecystectomy, bowel resection, b/l TKR
Family History: Reviewed and noncontributory.
Social History: Occasional alcohol. Denies tobacco and illicit drug use.
Allergies: Spironolactone.
Home Medications: See below.
Review of Symptoms:
Patient denies any fever, headache, chest pain, shortness of breath, GI or symptoms.
�Per the HPI.�All systems are reviewed negative except above.
Physical Exam:
The patient is afebrile, abdomen is nondistended, breathing is unlabored, skin is warm and dry, no edema.
NIH Stroke Scale:
I performed the NIH stroke scale on the patient on 11/26/24 at 1045. The patient scored 0 points on the NIH stroke scale assessment, which were assigned as follows: See below.
Neurologic Examination:
The patient is awake, alert and oriented x 3. She is able to follow commands and answer questions appropriately. There is no aphasia or dysarthria. On cranial nerve assessment, pupils are 3 mm bilateral, round and reactive to light and
accommodation. Visual mcgill are full. Extraocular movements are intact. Facial sensations are intact and bilaterally symmetrical, there is no facial asymmetry. Hearing is intact bilaterally to normal conversation volume. Tongue palate and uvula are
midline. Sternocleidomastoid strengths are full bilaterally. Motor strengths are 5/5 bilateral upper and lower extremities on medical research Lomax scale. There is no drift or involuntary movement noted. Deep tendon reflexes are 2+ bilateral
upper and lower extremities and Babinski is absent bilaterally. There was no extinction noted on double simultaneous stimulation. Coordination is intact by finger to nose bilaterally.
Lab Results: See below.
Neuro Imaging:
1. MRI brain 11/25/24: Small nonhemorrhagic acute/subacute infarct in the periventricular right centrum semiovale/parietal lobe lesion.
2. Carotid Ultrasound 11/25/24: Minimal calcified carotid bulb plaque on each side, measurements suggestive of less than 50% stenosis on each side as per modified Society of Radiologists in Ultrasound consensus criteria (IAC carotid criteria white
paper, 2020). No significant progression compared to prior study.
Differentials for the patient's presentation include:
1. Subacute small right centrum semiovale ischemic stroke per MRI brain imaging. Unclear if this is related to her recent fall or an incidental finding. Etiology appears to be small vessel disease, although patient does endorse occasional
noncompliance with Xarelto.
2. Possible dementia.
3. Afib.
Patient has the following risk factors for their symptoms: Noncompliance with Xarelto, HTN, HLD, age
IV Tenecteplase/IAT candidacy: She was not a candidate for TNK/IAT due to low NIHSS, outside of time window, and she is taking Xarelto.
Recommendations:
-Continue home Xarelto.
-Goal normotension as this event was greater than 24 hours ago.
-LDL goal <70. LDL is 62, okay to continue home atorvastatin 10mg daily as LDL is at goal.
-Goal normoglycemia, hbA1c is 5.6.
-NIHSS and neurological checks per unit guidelines.
-Provide patient with a stroke education packet.
-PT/OT/ST evaluations.
Discussed patient care with: Dr. Levi, the patient
Vital Signs and Labs
-
Vital Signs and Labs:
Vital Signs
Temp Pulse Resp BP Pulse Ox
97.9 F 67 18 160/74 97
11/26/24 11:50 11/26/24 11:50 11/26/24 11:50 11/26/24 11:50 11/26/24 11:50
Lab Results
11/26/24 09:26
11/26/24 09:26
Sodium 134 mmol/L (135-145) L 11/26/24 09:26
Potassium 3.5 mmol/L (3.5-5.1) 11/26/24 09:26
BUN 11 mg/dl (7-17) 11/26/24 09:26
Glucose 104 mg/dl (70-99) H 11/26/24 09:26
Calcium 9.3 mg/dl (8.4-10.2) 11/26/24 09:26
LDL Cholesterol, Calc 62 mg/dl 11/26/24 09:26
Vitamin B12 851 pg/ml (239-931) 11/24/24 15:49
Medications
-
Active Medications
Generic Name Dose Route Start Last Admin
Trade Name Freq PRN Reason Stop Dose Admin
Acetaminophen 650 mg 11/24/24 22:29 11/25/24 18:40
Acetaminophen 325 Mg Tablet PO 12/22/24 22:28 650 mg
Q4HPRN PRN Administration
mild pain/GUTIERREZ/temp> 100.4F
Atorvastatin Calcium 10 mg 11/24/24 22:29 11/25/24 20:29
Atorvastatin (Lipitor) 10 Mg Tablet PO 12/22/24 22:28 10 mg
HS ART Administration
Calcium/Vitamin D 1,000 mg 11/25/24 08:00 11/26/24 08:21
Calcium Carbonate 500 Mg/Vitamin D 5 Mcg (200 Units) Tablet PO 12/23/24 07:59 1,000 mg
DAILY ART Administration
Levothyroxine Sodium 75 mcg 11/25/24 06:00 11/26/24 04:51
Levothyroxine 75 Mcg Tablet PO 12/23/24 05:59 75 mcg
DAILY @ 0600 ART Administration
Metoprolol Succinate 50 mg 11/25/24 08:00 11/26/24 08:21
Metoprolol 50 Mg Extended Release Tablet PO 12/23/24 07:59 50 mg
BID ART Administration
Multivitamins Therapeutic 1 tablet 11/25/24 08:00 11/26/24 08:21
Multivitamin Tablet PO 12/23/24 07:59 1 tablet
DAILY ART Administration
Potassium Chloride 20 meq 11/25/24 08:00 11/26/24 08:21
Potassium Chloride 20 Meq Extended Release Tablet PO 12/23/24 07:59 20 meq
BID ART Administration
Rivaroxaban 20 mg 11/25/24 08:00 11/26/24 08:21
Rivaroxaban 20 Mg Tablet PO 12/23/24 07:59 20 mg
DAILY ART Administration
Rivastigmine 4.6 mg 11/25/24 08:00 11/26/24 08:21
Rivastigmine (Exelon) 4.6 Mg Patch TRANSDERM 12/23/24 07:59 4.6 mg
DAILY ART Administration
Home Medications
�Medication �Instructions �Recorded
furosemide 20 mg tablet 40 mg PO DAILY Fluid 11/13/18
Retention/Swelling
potassium chloride 20 mEq 20 meq PO BID Electrolyte Repletion 11/13/18
tablet,extended release(part/cryst)
atorvastatin 10 mg tablet 10 mg PO HS High Cholesterol 03/17/19
acetaminophen 500 mg tablet 1,000 mg PO BID Pain 09/09/22
calcium 600 mg (as 2 tab PO DAILY Supplement 09/09/22
carbonate)-vitamin D3 10 mcg (400
unit) tablet (Calcium 600 + D(3))
multivitamin 1 tab PO DAILY Supplement 09/09/22
metoprolol succinate 50 mg 50 mg PO BID Blood Pressure 09/18/23
tablet,extended release 24 hr
rivaroxaban 20 mg tablet (Xarelto) 20 mg PO DAILY Blood Clot 09/18/23
Prevention/Tx
levothyroxine 75 mcg tablet 75 mcg PO DAILY Thyroid 11/24/24
rivastigmine 4.6 mg/24 hour 4.6 mg transdermal DAILY Mental 11/24/24
transdermal patch Health/Anxiety
NIH Stroke Score
Subsequent NIH Scale
Date of Subsequent NIH Scale: 11/26/24
Time of Subsequent NIH Scale: 10:30
NIH Stroke Score
Level of Consciousness: 0 - Alert
LOC Questions: 0-Answers both correctly
LOC Commands: 0-Performs both correctly
Best Horizontal Gaze: 0-Normal
Visual Mcgill: 0=Normal, no visual loss
Facial Palsy: 0=Normal, symmetrical
Motor - Right Arm: 0=No drift 10 seconds
Motor - Left Arm: 0=No drift 10 seconds
Motor - Right Le-No drift 5 seconds
Motor - Left Le-No drift 5 seconds
Limb Ataxia: 0-Absent
Sensation: 0-Normal
Best Language: 0-No aphasia
Dysarthria: 0-Normal
Extinction and Inattention: 0-No abnormality
NIH Total Score:: 0
Modified Sandra (mRS) Score
Modified [place] Scale (mRS): No symptoms
Score: 0
Alteplase Contraindication
Inclusion and Exclusion criteria reviewed: Yes
Reasons for NON-Tx with Thrombolytics ABSOLUTE Exclusions: Greater than 4.5 hrs from onset of sxs
IAT Contraindications: NIHSS < 6

Documented by User: Pantera Levi MD 11/26/24 16:55
NIH Stroke Score
NIH Stroke Score
NIH Total Score:: 0
Modified [place] (mRS) Score
Score: 0
[2024-11-26 10:01] LABS: Blood Urea Nitrogen 11 mg/dl (7-17); Calcium 9.3 mg/dl (8.4-10.2); Carbon Dioxide 28 mmol/L (22-30); Chloride 105 mmol/L (98-107); Estimated Creatinine Clearance 58 ml/min; Glucose 104 mg/dl (70-99); HDL Cholesterol 62 mg/dl; LDL Cholesterol, Calculated 62 mg/dl; Potassium 3.5 mmol/L (3.5-5.1); Sodium 134 mmol/L (135-145); Very Low Density Lipoprotein 17 mg/dl (0-30); eGFR > 60.00
[2024-11-26 10:21] LABS: Glycohemoglobin (HgbA1c) 5.6 % (4.0-5.6)
--- NOTE | 2024-11-26 14:10 | PTOTSP ---
Speech Language Pathology
Pt seen for cognitive-linguistic evaluation via the [place] Cognitive Assessment (MOCA), version 8.2. Pt with a score of 19/30 where normal range is 26-30. Pt with mod cognitive deficits. Pt with hx of MCI. Deficits currently worse than mild
range, unsure if has progressed at home or whether related to acute CVA.
Pt seen for clinical bedside swallow evaluation. P.O. trials of puree, regular solids, and thin liquids provided. Adequate mastication, bolus formation, and A-P transit noted with no oral residue. Cough noted with 1st trial of consecutive straw
sips of thin liquids. No coughing noted with subsequent consecutive sips of thin liquids, single sips of thin liquids, or solids.
Recommend:
(1) Continue regular solids/thin liquids
(2) Aspiration precautions: single sips, slow rate
(3) Meds as tolerated
(4) EXECUTIVE RECEPTIONIST to continue to follow for cognitive-linguistic and dysphagia tx to ensure diet tolerance
--- NOTE | 2024-11-26 15:06 | W.PN.HOSP.TC ---
Today's Communication/Plan
-
SNF
Assessment / Plan
Assessment / Plan
NAD
Scleral Anicteric
MMM
No JVD
CTABL
RRR, S1/S2
Soft, NT, ND, BS+
Warm, Dry
AAOx3
Calm
Acute/subacute hemic CVA
On Xarelto
Continue Lipitor
A1c 5.6
Neurology following
Recommends to continue Xarelto and Lipitor
No indication for aspirin or Plavix
PT/OT
2D echocardiogram appears to be unchanged
Orthostatics negative
Carotid ultrasound without obstructive disease
Hyperlipidemia
Statin
Hypothyroidism
Continue levothyroxine
Paroxysmal atrial fibrillation
Xarelto
PT/OT recommends SNF
Po Murillo updated over the phone at [phone]
Anticipated Discharge: Today
Subjective/Interval History
-
Date of Service: November 26, 2024
Seen and examined. No new complaints. No acute overnight events.
Objective Data
-
Labs:
Laboratory Results
11/26/24
09:26
WBC 4.7 L
Hgb 13.0
Hct 39.3
Plt Count 92 L
Sodium 134 L
Potassium 3.5
Chloride 105
Carbon Dioxide 28
BUN 11
Creatinine 0.6
Glucose 104 H
Calcium 9.3
Vital Signs:
Vital Signs
Temp Pulse Resp BP Pulse Ox
97.9 F 67 18 160/74 97
11/26/24 11:50 11/26/24 11:50 11/26/24 11:50 11/26/24 11:50 11/26/24 11:50
I&O
11/25/24 11/26/24 11/27/24
06:59 06:59 06:59
Intake Total 980 / 980
Output Total 1350 / 1350 300 / 300
Balance -370 / -370 -300 / -300
[2024-11-26] MEDS: ZESTRIL 5 MG PO (17:41)
[2024-11-26] MEDS: LIPITOR 10 MG PO (20:23)
[2024-11-27] VITALS (8 sets, daily range): BP systolic 124–178; BP diastolic 68–92; PULSE 75–88
--- NOTE | 2024-11-27 02:24 | DOWNTIME ---
There was a [employer] Client Dredge Operator Supervisor Downtime on 11/27/2024 from 0100 to 11/27/2024 at 0215. Downtime documentation of patient's care, including medication administrations, has been reconciled in the electronic record per guidelines. Refer to the
patient's paper chart under the miscellaneous tab to see printed paper medication records and downtime forms.
[2024-11-27] MEDS: SYNTHROID 75 MCG PO (05:40)
[2024-11-27 08:37] LABS: Hematocrit 35.7 % (37.0-47.0); Hemoglobin 11.8 g/dL (12.0-16.0); Mean Corp Hgb Conc. 33.1 g/dL (33.0-37.0); Mean Corpuscular Volume 108.8 fL (81.0-99.0); Platelet Count 79 10^3/uL (130-400); Red Cell Dist. Width 12.5 % (11.5-14.5)
[2024-11-27] MEDS: THERAGRAN 1 TABLET PO (09:12)
[2024-11-27] MEDS: EXELON PATCH 4.6 MG TRANSDERM (09:12)
[2024-11-27] MEDS: KCL 20 MEQ PO ×2 (09:12→20:33)
[2024-11-27] MEDS: XARELTO 20 MG PO (09:12)
[2024-11-27] MEDS: OSCAL 500 + D 1000 MG PO (09:12)
[2024-11-27] MEDS: TOPROL XL 50 MG PO ×2 (09:13→20:33)
[2024-11-27] MEDS: ZESTRIL 5 MG PO (09:13)
[2024-11-27 09:34] LABS: Blood Urea Nitrogen 13 mg/dl (7-17); Calcium 9.1 mg/dl (8.4-10.2); Carbon Dioxide 26 mmol/L (22-30); Chloride 107 mmol/L (98-107); Estimated Creatinine Clearance 43 ml/min; Glucose 87 mg/dl (70-99); Potassium 4.4 mmol/L (3.5-5.1); Sodium 139 mmol/L (135-145); eGFR > 60.00
--- NOTE | 2024-11-27 10:22 | CM ---
Addendum entered by Ese Trotter 11/27/24 15:55:
[facility] does not accept patient's insurance. [facility] declined due to no bed availability
[facility] accepted, can admit patient tomorrow
Spoke w/ patient, OT was present as well at bedside. Patient extremely emotional, concerned about her cats, patient upset because she wants to go home stating she wants to leave and commit suicide. CM and OT comforted and provided emotional support
to patient. Patient eventually agreed to [facility] stating she will try it and if she doesn't like it she will leave.
Updated [facility], will plan to admit today once auth is obtained
Plan: [facility] SNF tomorrow pending auth
Addendum entered by Ese Trotter 11/27/24 10:45:
Seen patient and sisters bedside, sisters agreeable for patient to d/c to rehab. Patient is now agreeable, though she still prefers to go home. Sisters told patient they will care for her cats as patient is worrisome about this. Patient stated she
liked [facility], referrals placed in [facility].
Spoke w/ Niko/[facility], will review referral and call CM back
Left message w/ Candy/[facility]
Will need insurance auth
Original Note:
Chart reviewed. Therapy rec SNF for patient. Patient is declining SNF when discussed yesterday, even though CM reviewed w/ patient that she is a risk for falls and not at her independent baseline considering she lives alone. Patient stated she can
do home PT and hire an aide for additional assistance in the home. Updated hospitalist this morning that patient declined SNF yesterday. Hospitalist discussed w/ patient her need to go to rehab initially from the hospital. Updated patient's son via
phone.
Patient upset about SNF plan, patient crying stating she doesn't want to live anymore. CM offered emotional support. Patient stated that her son is going away this weekend and he's been caring for them while she's been in the hospital. Patient
stated she can't do things like she used to, she's losing things, forgetting things. Patient stated she wants to call her son to discuss SNF.
Plan: SNF encouraged and recommended
[2024-11-27 10:54] LABS: Absolute Neutrophils -Man Diff 1.6 10^3/uL (1.4-6.5); Total Cells Counted 100
[2024-11-27 10:55] LABS: Normal RBC Morphology Yes; Platelets Checked Yes
--- NOTE | 2024-11-27 12:22 | W.DCSUMMARY ---
Discharge Summary
Discharge Data
Date of Admission: 11/24/24
Date of Discharge: 11/27/24
-
Pending Results: No
Hospital Course
89-year-old female past medical history of chronic back pain secondary to spinal stenosis status post laminectomy, spinal cyst status post resection, paroxysmal atrial fibrillation on Xarelto, hypothyroidism, hypertension, hyperlipidemia,
obstructive sleep apnea, mild carotid artery disease, mild cognitive impairment, urge incontinence, chronic lower extremity edema
Presented after a fall while picking up adri litter with associated dizziness. Orthostatics negative. Head CT without acute bleed. 2D echocardiogram without acute findings see below. 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
Evaluated by neurology no changes made. Continue Xarelto and statin. Seen by physical therapy recommends SNF.
Blood pressure uncontrolled. Started on lisinopril 5mg.
Head CT
IMPRESSION:
No acute intracranial abnormality.
MRI Brain
IMPRESSION:
Small nonhemorrhagic acute/subacute infarct in the periventricular right centrum semiovale/parietal lobe lesion
Vascular Ultrasound
IMPRESSION:
1. Minimal calcified carotid bulb plaque on each side, measurements suggestive of less than 50% stenosis on each side as per modified Society of Radiologists in Ultrasound consensus criteria (IAC carotid criteria white paper, 2020).
2. No significant progression compared to prior study.
2D echo
SUMMARY
1. Ejection fraction is 60-65% by visual assessment.
2. Compared to a prior transthoracic echocardiogram study from June 2023 no significant changes are seen.
3. Mild concentric left ventricular hypertrophy.
4. Mild to moderate mitral valve regurgitation.
5. Moderate to severe tricuspid regurgitation. Estimated pulmonary artery pressure of 36 mmHg assuming a right atrial pressure of 3 mmHg.
Seen and examined on the day of discharge which was 11/27. No new complaints. No acute overnight
Looking for a phone could not find it
NAD
Scleral Anicteric
MMM
No JVD
CTABL
RRR, S1/S2
Soft, NT, ND, BS+
Warm, Dry
AAOx3
Calm
More than 30 minutes spent in discharge including
Final examination of the patient
Summarizing hospital stay
Instructions for continuing care to all relevant caregivers
Preparation of discharge records, prescriptions, and referral forms
Total time spent (in minutes): 33mins
Discharge Plan
-
Patient Disposition: Longterm/SNF
Discharge Diagnosis/Procedures: Acute/Subacute CVA
Condition: Good
Diet: As tolerated
Activity: As tolerated
Activity Restrictions/Additional Instructions:
Presented after a fall while picking up adri litter with associated dizziness. Orthostatics negative. Head CT without acute bleed. 2D echocardiogram without acute findings see below. 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
Evaluated by neurology no changes made. Continue Xarelto and statin. Seen by physical therapy recommends SNF.
Blood pressure uncontrolled. Started on lisinopril 5mg.
Head CT
IMPRESSION:
No acute intracranial abnormality.
MRI Brain
IMPRESSION:
Small nonhemorrhagic acute/subacute infarct in the periventricular right centrum semiovale/parietal lobe lesion
Vascular Ultrasound
IMPRESSION:
1. Minimal calcified carotid bulb plaque on each side, measurements suggestive of less than 50% stenosis on each side as per modified Society of Radiologists in Ultrasound consensus criteria (IAC carotid criteria white paper, 2020).
2. No significant progression compared to prior study.
2D echo
SUMMARY
1. Ejection fraction is 60-65% by visual assessment.
2. Compared to a prior transthoracic echocardiogram study from June 2023 no significant changes are seen.
3. Mild concentric left ventricular hypertrophy.
4. Mild to moderate mitral valve regurgitation.
5. Moderate to severe tricuspid regurgitation. Estimated pulmonary artery pressure of 36 mmHg assuming a right atrial pressure of 3 mmHg.
Referrals:
Sravani Pelaez CRNP [Family Provider, Internal Medicine]
Prescriptions:
New
lisinopril 5 mg Tablet
5 mg PO DAILY Qty: 30 0RF
Continued
furosemide 20 MG tablet
40 mg PO DAILY
potassium chloride 20 MEQ tablet,ER particles/crystals
20 meq PO BID
atorvastatin 10 MG tablet
10 mg PO HS
multivitamin Tablet
1 tab PO DAILY
acetaminophen 500 mg Tablet
1,000 mg PO BID
calcium carbonate-vitamin D3 [Calcium 600 + D(3)] 600 mg-10 mcg (400 unit) Tablet
2 tab PO DAILY
metoprolol succinate 50 mg tablet extended release 24 hr
50 mg PO BID
Xarelto 20 mg Tablet
20 mg PO DAILY
levothyroxine 75 mcg Tablet
75 mcg PO DAILY
rivastigmine 4.6 mg/24 hour Patch 24 Hour
4.6 mg TRANSDERMAL DAILY
Discharge Orders:
Discharge Patient (As Directed); Ordered 11/27/24
Ordered By: Ke Cool
Discharge Date and Time
Print Language: MONGOLIAN
[2024-11-27] MEDS: LIPITOR 10 MG PO (20:33)
[2024-11-28 03:45] VITALS: BP 165/88
[2024-11-28] MEDS: SYNTHROID 75 MCG PO (06:09)
[2024-11-28 07:00] VITALS: BP 140/65
[2024-11-28] MEDS: XARELTO 20 MG PO (07:51)
[2024-11-28] MEDS: ZESTRIL 5 MG PO (07:51)
[2024-11-28] MEDS: TOPROL XL 50 MG PO (07:51)
[2024-11-28] MEDS: KCL 20 MEQ PO (07:51)
[2024-11-28] MEDS: THERAGRAN 1 TABLET PO (07:51)
[2024-11-28] MEDS: OSCAL 500 + D 1000 MG PO (07:51)
[2024-11-28] MEDS: EXELON PATCH 4.6 MG TRANSDERM (07:52)
[2024-11-28 08:13] LABS: Blood Urea Nitrogen 13 mg/dl (7-17); Calcium 9.2 mg/dl (8.4-10.2); Carbon Dioxide 27 mmol/L (22-30); Chloride 107 mmol/L (98-107); Estimated Creatinine Clearance 50 ml/min; Glucose 92 mg/dl (70-99); Potassium 4.4 mmol/L (3.5-5.1); Sodium 138 mmol/L (135-145); eGFR > 60.00
--- NOTE | 2024-11-28 08:34 | W.PN.NEURO.1 ---
Today's Communication / Plan
-
Abdominal binder routinely
Follow orthostatic BPs
Continue rivaroxaban
Continue atorvastatin
Rehabilitation evaluation and treatment
Neuro Assessment/Plan
Assessment
Abrupt onset of gait dysfunction with the patient being unable to stand up after falling to the floor. 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
Not clear that the patient's small ischemic stroke is the etiology for the patient's inability to get up off the floor.
Based on orthostatic blood pressures, patient most likely experienced orthostatic hypotension producing symptoms
Plan
Abdominal binder routinely
Follow BPs
Continue rivaroxaban
Continue atorvastatin
Rehabilitation evaluation and treatment
Will follow as needed
Subjective/Objective
Subjective Data
Date of Service: November 28, 2024
Objective Data
Vital Signs
Temp Pulse Resp BP Pulse Ox
36.2 C 77 16 140/65 97
11/28/24 07:00 11/28/24 07:51 11/28/24 07:00 11/28/24 07:51 11/28/24 07:00
Lab Results
11/27/24 07:18
11/28/24 06:07
Sodium 138 mmol/L (135-145) 11/28/24 06:07
Potassium 4.4 mmol/L (3.5-5.1) 11/28/24 06:07
BUN 13 mg/dl (7-17) 11/28/24 06:07
Glucose 92 mg/dl (70-99) 11/28/24 06:07
Calcium 9.2 mg/dl (8.4-10.2) 11/28/24 06:07
LDL Cholesterol, Calc 62 mg/dl 11/26/24 09:26
Vitamin B12 851 pg/ml (239-931) 11/24/24 15:49
Patient Allergies
spironolactone (From Aldactone) Allergy (Verified 11/24/24 19:30)
Syncopy
Past History
Past History
ED Past Medical History: Arrthythmia (Atrial fib), HTN, Hypercholesterolemia and Other (Orthostatic hypotension)
ED Past Surgical History: Bowel resection, Cardiac (cardioversion), Cholecystectomy and Orthopedic (Jaswinder knee replacements)
Social History
Tobacco: Non-smoker
Alcohol: Occasional
Drug: None
Personal:
Living: alone
Employment: Retired
Family History
Family History: Other (Reviewed and Noncontributory)
Medications
-
Medications:
Generic Name Dose Route Start Last Admin
Trade Name Freq PRN Reason Stop Dose Admin
Acetaminophen 650 mg 11/24/24 22:29 11/25/24 18:40
Acetaminophen 325 Mg Tablet PO 12/22/24 22:28 650 mg
Q4HPRN PRN Administration
mild pain/GUTIERREZ/temp> 100.4F
Atorvastatin Calcium 10 mg 11/24/24 22:29 11/27/24 20:33
Atorvastatin (Lipitor) 10 Mg Tablet PO 12/22/24 22:28 10 mg
HS ART Administration
Calcium/Vitamin D 1,000 mg 11/25/24 08:00 11/28/24 07:51
Calcium Carbonate 500 Mg/Vitamin D 5 Mcg (200 Units) Tablet PO 12/23/24 07:59 1,000 mg
DAILY ART Administration
Levothyroxine Sodium 75 mcg 11/25/24 06:00 11/28/24 06:09
Levothyroxine 75 Mcg Tablet PO 12/23/24 05:59 75 mcg
DAILY @ 0600 ART Administration
Lisinopril 5 mg 11/27/24 08:00 11/28/24 07:51
Lisinopril 5 Mg Tablet PO 12/25/24 07:59 5 mg
DAILY ART Administration
Metoprolol Succinate 50 mg 11/25/24 08:00 11/28/24 07:51
Metoprolol 50 Mg Extended Release Tablet PO 12/23/24 07:59 50 mg
BID ART Administration
Potassium Chloride 20 meq 11/25/24 08:00 11/28/24 07:51
Potassium Chloride 20 Meq Extended Release Tablet PO 12/23/24 07:59 20 meq
BID ART Administration
Rivaroxaban 20 mg 11/25/24 08:00 11/28/24 07:51
Rivaroxaban 20 Mg Tablet PO 12/23/24 07:59 20 mg
DAILY ART Administration
Rivastigmine 4.6 mg 11/25/24 08:00 11/28/24 07:52
Rivastigmine (Exelon) 4.6 Mg Patch TRANSDERM 12/23/24 07:59 4.6 mg
DAILY ART Administration
--- NOTE | 2024-11-28 09:40 | CM ---
Addendum entered by Ese Trotter 11/28/24 10:06:
Received call from Shawn w/ approved auth. Patient approved beginning 11/28 NRD 12/02
Auth ref # [id number]. Facility to call [phone] for concurrent review
Ambulance auth ref # [id number]
Updated patient. IMM verbally reviewed, copy provided, copy on chart
Original Note:
CM called 1800 ask blue to initiate SNF and ambulance authorizations. CM spoke w/ Shawn, provided clinical information
Shawn stated he will call CM back once finished processing auth requests
TT hospitalist to order COVID test for patient
[facility] asking for a 3pm or later transport time
[facility]
Report: [phone]

Plan: D/c to [facility] once auth is finalized
[2024-11-28 10:37] LABS: COVID-19 Antigen Negative (Negative)
[2024-11-28 11:00] VITALS: BP 141/71
[2024-11-28 11:07] VITALS: BP 177/100
[2024-11-28 12:34] VITALS: BP 137/72; BP 141/71; BP 143/70; PULSE 65; PULSE 72; PULSE 78
--- NOTE | 2024-11-28 13:45 | W.DCSUMMARY ---
Addendum entered and electronically signed by Ke Cool MD 11/28/24 17:29:
Pancytopenia
Original Note:
Discharge Summary
Discharge Data
Date of Admission: 11/27/24
Date of Discharge: 11/28/24
-
Pending Results: No
Hospital Course
89-year-old female past medical history of chronic back pain secondary to spinal stenosis status post laminectomy, spinal cyst status post resection, paroxysmal atrial fibrillation on Xarelto, hypothyroidism, hypertension, hyperlipidemia,
obstructive sleep apnea, mild carotid artery disease, mild cognitive impairment, urge incontinence, chronic lower extremity edema
Presented after a fall while picking up adri litter with associated dizziness. Orthostatics negative. Head CT without acute bleed. 2D echocardiogram without acute findings see below. 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
Evaluated by neurology no changes made. Continue Xarelto and statin. Seen by physical therapy recommends SNF.
On 11/27 orthostatic vitals were checked at nighttime. They were positive. Started on abdominal binder
Blood pressure uncontrolled. Started on lisinopril 5mg.
Head CT
IMPRESSION:
No acute intracranial abnormality.
MRI Brain
IMPRESSION:
Small nonhemorrhagic acute/subacute infarct in the periventricular right centrum semiovale/parietal lobe lesion
Vascular Ultrasound
IMPRESSION:
1. Minimal calcified carotid bulb plaque on each side, measurements suggestive of less than 50% stenosis on each side as per modified Society of Radiologists in Ultrasound consensus criteria (IAC carotid criteria white paper, 2020).
2. No significant progression compared to prior study.
2D echo
SUMMARY
1. Ejection fraction is 60-65% by visual assessment.
2. Compared to a prior transthoracic echocardiogram study from June 2023 no significant changes are seen.
3. Mild concentric left ventricular hypertrophy.
4. Mild to moderate mitral valve regurgitation.
5. Moderate to severe tricuspid regurgitation. Estimated pulmonary artery pressure of 36 mmHg assuming a right atrial pressure of 3 mmHg.
Seen and examined on the day of discharge which was 11/28. No new complaints. No acute overnight
Sitting in bedside chair. Comfortable. States that she would be much happier more agreeable to go to a rehab facility if she had one of her cats which is her baby. She understands that she cannot have her cat at the facility.
NAD
Scleral Anicteric
MMM
No JVD
CTABL
RRR, S1/S2
Soft, NT, ND, BS+
Warm, Dry
AAOx3
Calm
More than 30 minutes spent in discharge including
Final examination of the patient
Summarizing hospital stay
Instructions for continuing care to all relevant caregivers
Preparation of discharge records, prescriptions, and referral forms
Total time spent (in minutes): 36mins
Discharge Plan
-
Discharge Diagnosis/Procedures: Acute/Subacute CVA
Condition: Good
Diet: As tolerated
Activity: As tolerated
Activity Restrictions/Additional Instructions:
Presented after a fall while picking up adri litter with associated dizziness. Orthostatics negative. Head CT without acute bleed. 2D echocardiogram without acute findings see below. 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
Evaluated by neurology no changes made. Continue Xarelto and statin. Seen by physical therapy recommends SNF.
Blood pressure uncontrolled. Started on lisinopril 5mg.
Head CT
IMPRESSION:
No acute intracranial abnormality.
MRI Brain
IMPRESSION:
Small nonhemorrhagic acute/subacute infarct in the periventricular right centrum semiovale/parietal lobe lesion
Vascular Ultrasound
IMPRESSION:
1. Minimal calcified carotid bulb plaque on each side, measurements suggestive of less than 50% stenosis on each side as per modified Society of Radiologists in Ultrasound consensus criteria (IAC carotid criteria white paper, 2020).
2. No significant progression compared to prior study.
2D echo
SUMMARY
1. Ejection fraction is 60-65% by visual assessment.
2. Compared to a prior transthoracic echocardiogram study from June 2023 no significant changes are seen.
3. Mild concentric left ventricular hypertrophy.
4. Mild to moderate mitral valve regurgitation.
5. Moderate to severe tricuspid regurgitation. Estimated pulmonary artery pressure of 36 mmHg assuming a right atrial pressure of 3 mmHg.
Referrals:
Sravani Pelaez CRNP [Family Provider, Internal Medicine]
Prescriptions:
New
lisinopril 5 mg Tablet
5 mg PO DAILY Qty: 30 0RF
Continued
furosemide 20 MG tablet
40 mg PO DAILY
potassium chloride 20 MEQ tablet,ER particles/crystals
20 meq PO BID
atorvastatin 10 MG tablet
10 mg PO HS
multivitamin Tablet
1 tab PO DAILY
acetaminophen 500 mg Tablet
1,000 mg PO BID
calcium carbonate-vitamin D3 [Calcium 600 + D(3)] 600 mg-10 mcg (400 unit) Tablet
2 tab PO DAILY
metoprolol succinate 50 mg tablet extended release 24 hr
50 mg PO BID
Xarelto 20 mg Tablet
20 mg PO DAILY
levothyroxine 75 mcg Tablet
75 mcg PO DAILY
rivastigmine 4.6 mg/24 hour Patch 24 Hour
4.6 mg TRANSDERMAL DAILY
Discharge Orders:
Discharge Patient (As Directed); Ordered 11/27/24
Ordered By: Ke Cool
Discharge Date and Time
Print Language: AMHARIC
--- NOTE | 2024-11-28 15:14 | PN.CDI ---
CDI
- -
CDI:
Physician Documentation Request
Admit Date: 11/27/24 12:26
Dear Doctor Travon,
Patient came to ED after fall and associated dizziness. Found to have Small nonhemorrhagic acute/subacute infarct.
Recent hematology results:
Laboratory Tests
11/25/24 11/26/24 11/27/24
08:26 09:26 07:18
WBC 2.9 L 4.7 L 4.1 L
RBC 3.37 L 3.67 L 3.28 L
Plt Count 83 L 92 L 79 L
Could you please provide a diagnosis that supports the above lab abnormalities and additional evaluation/ monitoring:
Pancytopenia
Abnormal lab values clinically insignificant
Other
Use of terms such as suspected, likely, concern for, or probable (associated with a specific diagnosis that is being evaluated, monitored, or treated as if it exists) are acceptable and can be coded in the inpatient setting, when documented at the
time of discharge.
Thank you,
Airam Trejo RN, BSN
CDI Specialist
tiger text
Please use your independent medical judgment in providing your response.
[2024-11-28 16:06] VITALS: BP 135/57
== END 2024-11-28 16:29 | DRG 65 ==
LOC: 4 EAST ACU 12:26
PROVIDERS: Emergency Medicine; Nurse Practitioner; ADMITTING PHYSICIAN Hospitalist; ATTENDING PHYSICIAN Hospitalist; CONSULT PHYSICIAN Psychiatry & Neurology Neurology; EMERGENCY PHYSICIAN Emergency Medicine; FAMILY PHYSICIAN Nurse Practitioner Primary Care
DX: I63.9 Cerebral infarction, unspecified (principal); D61.818 Other pancytopenia; G89.29 Other chronic pain; M48.00 Spinal stenosis, site unspecified; M54.9 Dorsalgia, unspecified; I48.0 Paroxysmal atrial fibrillation; Z79.01 Long term (current) use of anticoagulants; E03.9 Hypothyroidism, unspecified; I10 Essential (primary) hypertension; G47.33 Obstructive sleep apnea (adult) (pediatric)
CPT/HCPCS: 70450; 70551; 80048; 80053; 80061; 81003; 81015; 82550; 82607; 83036; 84443; 85025; 87811; 92523; 92610; 93005; 93306; 93880; 96360; 97116; 97129; 97163; 97166; 97530; 99285

== ENCOUNTER 2024-12-12 19:41 | Observation (INO) | payer OTHER, SELFPAY ==
[2024-12-12] VITALS (10 sets, daily range): BP systolic 106–148; BP diastolic 57–85; BMI 25.3; BMI 24.5
[2024-12-12 14:59] LABS: Urine Character Clear (Clear)
[2024-12-12 15:10] LABS: ALT (SGPT) 26 U/L (0-35); AST (SGOT) 58 U/L (14-36); Albumin 4.9 g/dl (3.5-5.0); Alkaline Phosphatase 100 U/L (38-126); Blood Urea Nitrogen 54 mg/dl (7-17); Calcium 10.1 mg/dl (8.4-10.2); Carbon Dioxide 27 mmol/L (22-30); Chloride 99 mmol/L (98-107); Estimated Creatinine Clearance 27 ml/min; Glucose 99 mg/dl (70-99); Hematocrit 45.3 % (37.0-47.0); Hemoglobin 15.6 g/dL (12.0-16.0); Mean Corp Hgb Conc. 34.4 g/dL (33.0-37.0); Mean Corpuscular Volume 102.5 fL (81.0-99.0); Nucleated Red Blood Cells % 0 %; Platelet Count 106 10^3/uL (130-400); Potassium 4.0 mmol/L (3.5-5.1); Red Cell Dist. Width 11.7 % (11.5-14.5); Sodium 137 mmol/L (135-145); Total Protein 8.0 g/dl (6.3-8.2); eGFR 48.63
--- NOTE | 2024-12-12 15:12 | ED.GENMED ---
History of Present Illness
General
Chief Complaint: Fall
Source: patient
Time Seen by Provider: 12/12/24 15:05
History of Present Illness
History of Present Illness:
89-year-old female presents to the emergency room via ambulance after visiting nurse or aide found her laying on the floor. Patient evidently fell yesterday. Patient admits she was not using her walker. She does not recall exactly how she fell.
She denies any pain at this time from the fall. Patient evidently has had multiple falls. She was hospitalized here at [place] on November 30. She stayed in the hospital for couple days and was ultimately transferred to [facility]. Patient
states she signed out from [facility] because she wanted to be in her own place. It sounds like she just got home yesterday or perhaps the day before. Patient states she is not been eating or drinking very much because she has poor appetite and
obviously she was not drinking anything through the night or day today because she was on the floor. She has a mild headache. She denies any chest pain, shortness of breath, abdominal pain. She denies any pain in her hip or other extremities.
Past History
Past History
ED Past Medical History: Arrthythmia (Atrial fib), HTN, Hypercholesterolemia and Other (Orthostatic hypotension)
ED Past Surgical History: Bowel resection, Cardiac (cardioversion), Cholecystectomy and Orthopedic (Jaswinder knee replacements)
Social History
Tobacco: Non-smoker
Alcohol: Occasional
Drug: None
Personal:
Living: alone
Employment: Retired
Family History
Family History: Other (Reviewed and Noncontributory)
Phy Exam
Physical Exam
Physical Exam:
General: Awake, Alert, Oriented X3. No acute distress, appears stated age, chronically ill.
Vitals: unremarkable
Head: Atraumatic
Eyes: Pupils equal, EOMI
Throat: Airway intact, no exudates, dry mucosa
Neck: Trachea midline
Lungs: Clear and equal b/l
Heart: Regular rate, no murmurs
Abd: Soft, Nontender, No pulsatile mass
Neuro: No focal weakness
Skin: Warm, dry, no rash
Extremities: pulses equal b/l, no edema, no pain with range of motion at the shoulders, hips etc.
Course
Orders/Labs/Results
Orders:
Orders
12/12/24 14:36
EKG [Electrocardiogram (*1)] Urgent
Reason for Study: Fatigue / Weakness
12/12/24 14:37
EKG- Treatment ONCE
12/12/24 14:38
Complete Blood Count/With Diff Urgent
Comprehensive Metabolic Panel Urgent
Creatine Phosphokinase Urgent
Comment: ADD ON
12/12/24 14:45
Urinalysis Reflex To Culture Urgent
Date Specimen was Collected: 12/12/24
Time Specimen was Collected: 14:40
Urine Microscopic Reflex Cult Urgent
12/12/24 Dinner
Cholesterol Lowering
At Your Request: Limited Participation
Cholesterol Lowering: Sodium, 2 Gram
12/12/24 15:22
Add On- LAB Urgent
Tests Added?: cpk
CT Head W/o Iv Contrast Urgent
Comment:
Reason For Exam: multiple falls
12/12/24 15:30
0.9% Sodium Chloride 1000 ml [Nss] 1,000 ml IV 150 mls/hr
12/12/24 19:10
Admit/Transfer Patient As Directed
Co-Sign Provider:
Level of Care: Observation services
Assign to:: Telemetry
Physician / Group: Hospitalist
Diagnosis: DAVID
Reason for Telemetry: Arrhythmia
Date to Stop Telemetry: 12/15/24
Time to Stop Telemetry: 11:00
PRN Pain Medication Management As Directed
May give lesser potent ordered pain med per pt: Yes
preference::
Protocol:: Medication orders for pain may be administered in a
manner that supports deferring to patient preference
when the pt is:
- Requesting an ordered lesser potent pain medication.
Least to most potent pain medications are defined
as: acetaminophen < NSAID < tramadol < opioids
(morphine, oxycodone, hydromorphone).
- Requesting a lesser dose of the same medication IF
ORDERED.
- Requesting a less intrusive route of administration
if both routes are prescribed by the provider (PO <
IV).
12/12/24 19:20
Code Status As Directed
Resuscitation Status: Do not resuscitate
Reached after discussion with pt or family/Healthcare POA: Yes
DNR Bracelet Application ONCE
12/12/24 21:37
0.9% Sodium Chloride 1000 ml [Nss] 1,000 ml IV 60 mls/hr
Bisacodyl [Dulcolax] 10 mg RECTAL L37MRCI PRN
Docusate W/Senna [Senokot-S] 1 tablet PO BIDPRN PRN
Metoprolol Xl [Toprol Xl] 50 mg PO BID
Polyethylene Glycol Powder [Miralax] 17 grams PO DAILYPRN PRN
12/12/24 21:37
Case Management Consult ONCE
Case Management Consult: Residential Placement
Comment: Discharged to [facility] recently but pt wants different SNF. Lives at [facility]. Team recommended [facility] nearby, if PT/OT recommend SNF again.
Tentative Discharge Date: 12/13/24
DIETARY IP CONSULT Routine
Reason for Consult: lost 7kg in 15 days
PSYCHIATRY CONSULT Routine
Consulting Provider: Go Martinez
Was physician already notified: Yes
Reason for consult: capacity; dementia; left SNF AMA; found on ground by VN after fall 1 day
Activity As Directed
Activity Level: With Assistance
Precautions As Directed
Type of Precautions: Other
Comment: fall
Vital Signs As Directed
Frequency: Per unit guidelines
Pulse Ox/spot Check [RESP] Routine
Quantity: 1
Ot Eval And Treat Routine
Pt Eval And Treat Routine
Activity Level: With Assistance
12/12/24 22:00
Atorvastatin [Lipitor] 10 mg PO HS
12/13/24 06:00
Complete Blood Count/With Diff IN AM
Comprehensive Metabolic Panel IN AM
Magnesium IN AM
TSH Reflex To Free T4 IN AM
Levothyroxine [Synthroid] 75 mcg PO DAILY @ 0600
12/13/24 08:00
Rivaroxaban [Xarelto] 20 mg PO DAILY
Rivastigmine [Exelon Patch] 4.6 mg TRANSDERM DAILY
12/14/24 06:00
Complete Blood Count/With Diff IN AM
Comprehensive Metabolic Panel IN AM
Magnesium IN AM
12/15/24 06:00
Complete Blood Count/With Diff IN AM
Comprehensive Metabolic Panel IN AM
Magnesium IN AM
12/15/24 11:00
DC Protocol for Telemetry ONCE
12/16/24 06:00
Complete Blood Count/With Diff IN AM
Comprehensive Metabolic Panel IN AM
Magnesium IN AM
12/17/24 06:00
Complete Blood Count/With Diff IN AM
Comprehensive Metabolic Panel IN AM
Magnesium IN AM
12/18/24 06:00
Complete Blood Count/With Diff IN AM
Comprehensive Metabolic Panel IN AM
Magnesium IN AM
12/19/24 06:00
Complete Blood Count/With Diff IN AM
Comprehensive Metabolic Panel IN AM
Magnesium IN AM
12/20/24 06:00
Complete Blood Count/With Diff IN AM
Comprehensive Metabolic Panel IN AM
Magnesium IN AM
12/21/24 06:00
Complete Blood Count/With Diff IN AM
Comprehensive Metabolic Panel IN AM
Magnesium IN AM
12/22/24 06:00
Complete Blood Count/With Diff IN AM
Comprehensive Metabolic Panel IN AM
Magnesium IN AM
Abnormal Lab Results
12/12/24 12/12/24
14:38 14:45
MCV 102.5 H fL
(81.0-99.0)
MCH 35.3 H pg
(27.0-31.0)
Plt Count 106 L 10^3/uL
(130-400)
Absolute Lymphs (auto) 0.9 L 10^3/uL
(1.2-3.4)
Absolute Monos (auto) 1.5 H 10^3/uL
(0.1-0.6)
Lymphocytes % 10.9 L %
(20.5-51.1)
Monocytes % 17.7 H %
(1.7-9.3)
BUN 54 H mg/dl
(7-17)
Creatinine 1.1 H mg/dL
(0.6-1.0)
Total Bilirubin 2.5 H mg/dl
(0.2-1.3)
AST 58 H U/L
(14-36)
Creatine Kinase 326 H U/L
(30-135)
Urine Ketones 2+ A
(Negative)
Ur Occult Blood Reflex 2+ A
(Negative)
Urine Bacteria (Reflex) Few A
(Negative)
Urine Albumin (Reflex) 2+ A
(Neg - Trace)
12/12/24 14:38
12/12/24 14:38
Vital Signs
Initial and Last Documented VS:
Initial Vital Signs
Temp Pulse Resp
97.3 F 86 16
12/12/24 14:31 12/12/24 14:31 12/12/24 14:31
Last Documented Vital Signs
Temp Pulse Resp BP Pulse Ox
97.7 F 85 18 129/66 98
12/12/24 21:55 12/12/24 21:55 12/12/24 21:55 12/12/24 21:55 12/12/24 21:55
MDM/Problems Addressed
Differential Diagnosis Includes:
Dehydration, subdural, electrolyte abnormality, urinary tract infection
MDM/Problems Addressed:
Patient presents after a fall being on the ground at home for extended period time. Labs show that she is quite dehydrated. CPK is not markedly elevated. Patient was just discharged from rehab. I believe patient is to stay because she is
dehydrated needs IV fluid. Also is not really safe for discharge. Will probably need placement back at a [facility] facility
*Pulse Oximetry
SaO2: 98
Oxygen Mode of Delivery: Room air
Patient hypoxic: no
*EKG
Interpreted by ED Provider?: Yes
Interpretation: abnormal
Heart Rate: 83
Rate: normal
Rhythm: a-fib
[place]: normal axis
Interval: normal interval
QRS Pattern: normal QRS
Ischemia: non-specific ST changes
*Women'[employer] Activities Adviser Interpretation
Rate: normal
Interpretation: abnormal
Rhythm: a-fib
*Critical Care Note
Total Time (30-74mins, 75-104mins- exclusive of procedures): Not Applicable
ED Attending Note
-
Portions of this chart may have been created with voice recognition software.� Occasional wrong word or��sound alike� substitutions may have occurred due to the inherent limitations of voice recognition software.
Discharge Plan
Departure
Patient Disposition: Admit
Date of Disposition: 12/12/24
Time of Disposition: 16:50
Admit to: Med/Surg
Presentation/result/management discussed w/ accepting MD/DO: Hospitalist
Condition: Fair
Discharge Problem:
Fall, Acute dehydration
Interventions
Interventions:
*Risk Screen - Suicide Last Done: 12/12/24 22:00
*General Assessment Last Done: 12/12/24 14:31
*Neglect/Abuse Screening Last Done: 12/12/24 14:31
*ED- Fall Risk Assessment Last Done: 12/12/24 21:30
*ED COVID-19 Vaccine History Last Done: 12/12/24 22:00
*ED Influenza Vaccine History Last Done: 12/12/24 14:31
*Nursing Disposition Last Done: 12/12/24 21:30
ED-Musculoskeletal Assessment Last Done: 12/12/24 16:00
ED- Neurological Assessment Last Done: 12/12/24 16:00
ED-Skin Assessment Last Done: 12/12/24 20:30
Discharge Date and Time
Discharge Date/Time: 12/12/24 21:40
[2024-12-12 15:24] LABS: Urine Red Blood Cell 0-2 /HPF (0-2)
[2024-12-12] MEDS: NSS 1000 IV ×2 (16:11→22:34)
--- NOTE | 2024-12-12 17:12 | HPS.HSE ---
Addendum entered and electronically signed by Sofiya Del Cid MD 12/12/24 20:55:
I personally performed a history and physical exam of the patient and discussed management with the resident. I reviewed the resident's note and agree with the documented findings and plan of care HPI/CC.
GENERAL: well developed, well nourished, female in no apparent distress
HEENT: NC/AT--no O2 requirements--dark reddish facial cheeks
HEART: irreg irreg
LUNGS : clear to auscultation bilaterally
ABDOM: soft, nontender, nondistended, + bowel sounds
EXT: no cyanosis, clubbing, or edema
NEUROLOGIC: grossly intact--strength 5/5 x 4 extremities
: purewick in place
Found on floor--? mechanical fall, prodrome?--pt cannot remember how she fell--VN found her--she signed out of [facility]--Dehydration a possibility--pt with DAVID (baseline creat 0.7-0.8) admission 1.1--CPK 300s--pt denies hitting her head, head
CT neg for acute injuries--ADMIT as OBS--cont IVF--follow labs--consult PT/OT--psych for capacity (although I believe she does have it)--willing to go to another SNF if needs it
Headache, likely due to dehydration, as CT head negative for acute intracranial hemorrhage or transcortical infarct--symptomatic treatment
Dementia--Concern for lacking capacity, as patient left SNF AMA� Continue TREAD CUTTER rivastigmine 4.6 mg transdermal� Psychiatry consult to evaluate for capacity to make medical conditions
Severe protein calorie malnutrition--Loss 7 kg in half a month, which is greater than 5% in 1 month� Nutrition consult
RUQ mild pain to palpation--S/p cholecystectomy--check abdominal US
Chronic Thrombocytopenia� Continue to monitor
Paroxysmal A-fib� Continue TREAD CUTTER Xarelto 20 mg p.o. daily� Continue TREAD CUTTER metoprolol 50 mg p.o. twice daily with parameters to hold when SBP less than 100 or HR less than 60
Chronic HFpEF without exacerbation--holding lasix-and gentle IVF
Essential Hypertension� Held lisinopril due to DAVID Lisinopril was started during last admission in November 2024� Continue TREAD CUTTER metoprolol 50 mg p.o. twice daily
Hypothyroidism� Continue TREAD CUTTER levothyroxine --TSH with reflex to T4
Hyperlipidemia� Continue atorvastatin
Supplements� Held for now
DVT proph-- Xarelto
CODE STATUS-- DNR
Original Note:
Family Physician
-
Family Physician: Sravani Pelaez
Chief Complaint
-
Fall
History of Present Illness
Ms. Yin Haney is a 89yoF with PMH notable for pA-fib (Xarelto), HTN, HLD, hypothyroidism, bilateral lower extremity edema, dementia, urge incontinence, and bilateral carotid atherosclerosis, who presents for a fall and not being able to
get up overnight until a visiting nurse found and helped her in the morning.
Presented to ED via ambulance after visiting nurse or aide found her laying on the floor. Patient fell yesterday and has had multiple falls. Patient admits she was not using her walker. She does not recall exactly how she fell, but she remembers
she was vacuuming. She denies any pain at this time from the fall. She was hospitalized here at [facility] on November 30. She stayed in the hospital for couple days and was discharged to [facility]. Patient states she signed out from [facility]
Home AMA because she felt the nurses were rude to her and did not want to take care of her.
Patient states she has not been eating or drinking very much because she has poor appetite. She was not drinking anything through the night or day today because she could not get up from the floor. On presentation, she had a mild headache. She
denied chest pain, shortness of breath, abdominal pain. She denied pain in her hip or other extremities.
Medical History
Past Medical History
Past Medical History: Reports Arrhythmia (Paroxysmal A-fib), Dementia (Mild cognitive Silva that the patient feels is getting worse), GERD, HTN, Hypercholesterolemia and Hypothyroidism
Additional Past Medical History:
Bilateral lower extremity edema, overactive bladder, bilateral carotid atherosclerosis
Past Surgical History: Reports Bowel Resection, Cardiac (Cardiac ablation), Cholecystectomy, , Orthopedic (Bilateral knee replacement) and Tonsilectomy
Social History
Tobacco: Non-smoker
Alcohol: Former (States she used to drink too much and from age 23 to when she was diagnosed with A-fib a few years ago. She has quit drinking)
Personal:
Living: Alone
Employment: Retired
Family History
Family History: CAD (In father, possibly in mother) and Diabetes (And 3 sisters)
Allergies / Home Medications
Allergies reflects when Allergies were last updated in [facility].
Home Medications with original date entered in [facility]
Allergy/Medication List:
Allergies
Allergy/AdvReac Type Severity Reaction Status Date / Time
spironolactone (From Allergy Syncopy Verified 11/24/24 19:30
Aldactone)
Home Medications
furosemide 20 mg tablet 40 mg PO DAILY Fluid Retention/Swelling 11/13/18
potassium chloride 20 mEq tablet,extended release(part/cryst) 20 meq PO BID Electrolyte Repletion 11/13/18
atorvastatin 10 mg tablet 10 mg PO HS High Cholesterol 03/17/19
acetaminophen 500 mg tablet 1,000 mg PO BID Pain 09/09/22
calcium 600 mg (as carbonate)-vitamin D3 10 mcg (400 unit) tablet (Calcium 600 + D(3)) 2 tab PO DAILY Supplement 09/09/22
multivitamin 1 tab PO DAILY Supplement 09/09/22
metoprolol succinate 50 mg tablet,extended release 24 hr 50 mg PO BID Blood Pressure 09/18/23
rivaroxaban 20 mg tablet (Xarelto) 20 mg PO DAILY Blood Clot Prevention/Tx 09/18/23
levothyroxine 75 mcg tablet 75 mcg PO DAILY Thyroid 11/24/24
rivastigmine 4.6 mg/24 hour transdermal patch 4.6 mg transdermal DAILY Mental Health/Anxiety 11/24/24
lisinopril 5 mg tablet 5 mg PO DAILY #30 tabs 11/26/24
Review of Systems
-
History Source: Patient
Constitutional: Reports Weight Loss and Fatigue
EENT: Denies Mouth Pain
Respiratory: Denies Cough or Trouble Breathing
Cardiac: Denies Chest Pain or Palpitations
Abdomen/GI: Denies Abdominal Pain, Nausea, Vomiting, Diarrhea or Constipated
: Reports Incontinence, Urgency and Other (Legs.); Denies Dysuria or Frequency
Musculoskeletal: Reports Edema; Denies Joint Pain, Joint Swelling or Muscle Pain
Skin: Reports Other (Bruises easily)
Neurological: Reports Headache and Weakness
Endocrine: Denies Polyuria
Hematologic/Lymphatic: Reports Bruising
Psych: Reports Calm
Physical Exam
Vital Signs
Vital Signs
Temp Pulse Resp BP Pulse Ox
97.3 F 76 17 122/59 95
12/12/24 14:31 12/12/24 16:00 12/12/24 16:00 12/12/24 16:00 12/12/24 16:00
Physical Exam
General: Well Developed, Well Nourished, No Apparent Distress, Comfortable, Conversant and Poor Appetite; No Appears in Distress or Pain
HEENT: NormoCephalic, Anicteric, PERRLA, No Ptosis, Nose Appears Normal and Ears Appear Normal; No Moist mucous membranes or Oxygen
Respiratory: Clear
Cardiac: S1/S2, Irregular Rhythm and Peripheral Edema
GI: Soft, Non Distended, Normal Bowel Sounds and Tender (Mild tenderness to deep palpation of the right upper quadrant)
Genito-urinary: Other (Pure wick and wearing pad); No Sorensen
Musculoskeletal: Clubbing, No Clubbing, Edema, Left Lower Extremity, Edema, Right Lower Extremity and Other (5/5 strength to hip flexion, elbow flexion and extension, finger flexion, foot flexion and extension bilaterally)
Skin: Warm and Dry
Neuro: Awake and Alert
Psych: Calm
Laboratory Results
-
12/12/24 14:38
12/12/24 14:38
Laboratory Results
Total Bilirubin 2.5 mg/dl (0.2-1.3) H 12/12/24 14:38
AST 58 U/L (14-36) H 12/12/24 14:38
ALT 26 U/L (0-35) 12/12/24 14:38
Alkaline Phosphatase 100 U/L (38-126) 12/12/24 14:38
Hematology and Coagulation - Last 24 hours
12/12/24 Range/Units
14:38
WBC 8.4 (4.8-10.8) 10^3/uL
RBC 4.42 (4.20-5.40) 10^6/uL
Hgb 15.6 (12.0-16.0) g/dL
Hct 45.3 (37.0-47.0) %
MCV 102.5 H (81.0-99.0) fL
MCH 35.3 H (27.0-31.0) pg
MCHC 34.4 (33.0-37.0) g/dL
RDW 11.7 (11.5-14.5) %
Plt Count 106 L (130-400) 10^3/uL
MPV Not Reportable
Abs Immat Gran (auto) 0.0 (0-0.05) 10^3/uL
Absolute Neuts (auto) 6.0 (1.4-6.5) 10^3/uL
Absolute Lymphs (auto) 0.9 L (1.2-3.4) 10^3/uL
Absolute Monos (auto) 1.5 H (0.1-0.6) 10^3/uL
Absolute Eos (auto) 0.0 (0-0.7) 10^3/uL
Absolute Basos (auto) 0.0 (0-0.2) 10^3/uL
Immature Gran % 0.4 (0-0.5) %
Neutrophils % 70.8 (42.2-75.2) %
Lymphocytes % 10.9 L (20.5-51.1) %
Monocytes % 17.7 H (1.7-9.3) %
Eosinophils % 0.0 (0-6) %
Basophils % 0.2 (0-2) %
Nucleated RBC % 0 %
Blood Gas and Chemistry - Last 24 hours
12/12/24 Range/Units
14:38
Sodium 137 (135-145) mmol/L
Potassium 4.0 (3.5-5.1) mmol/L
Chloride 99 (98-107) mmol/L
Carbon Dioxide 27 (22-30) mmol/L
BUN 54 H (7-17) mg/dl
Creatinine 1.1 H (0.6-1.0) mg/dL
Estimated Creat Clear 27 ml/min
eGFR 48.63
Glucose 99 (70-99) mg/dl
Calcium 10.1 (8.4-10.2) mg/dl
Total Bilirubin 2.5 H (0.2-1.3) mg/dl
AST 58 H (14-36) U/L
ALT 26 (0-35) U/L
Alkaline Phosphatase 100 (38-126) U/L
Creatine Kinase 326 H (30-135) U/L
Total Protein 8.0 (6.3-8.2) g/dl
Albumin 4.9 (3.5-5.0) g/dl
Other lab results - Last 24 hours
12/12/24 Range/Units
14:45
Urine Color Yellow
Urine Clarity Clear (Clear)
Urine pH 5.0 (5.0-9.0)
Ur Specific [place] 1.020 (<1.030)
Urine Ketones 2+ A (Negative)
Ur Occult Blood Reflex 2+ A (Negative)
Urine Nitrite (Reflex) Negative (Negative)
Urine Bilirubin Negative (Negative)
Urine Urobilinogen Negative (Neg - 1+)
Leukocyte Esterase Rfl Negative (Negative)
Urine RBC 0-2 (0-2) /HPF
Urine WBC (Reflex) 3-5 (0-5) /HPF
Ur Squamous Epith Cells 3-5 (Few) /LPF
Urine Bacteria (Reflex) Few A (Negative)
Urine Glucose Negative (Negative)
Urine Albumin (Reflex) 2+ A (Neg - Trace)
Impression/Plan
-
IMPRESSION:
Ms. Yin Li is a 89yoF with admission for paroxysmal A-fib (Xarelto), HTN, hypothyroidism, chronic HFpEF, dementia who presents after not being able to get up from a fall due to ambulatory dysfunction.
� PMH: PA-fib, HTN, HLD, orthostatic hypotension, postsurgical hypothyroidism, chronic HFpEF, bilateral carotid atherosclerosis, dementia, Hx of AD, overactive bladder/urge incontinence/bladder prolapse
Presented to ED via ambulance after visiting nurse or aide found her laying on the floor. Patient evidently fell yesterday. Patient admits she was not using her walker. She does not recall exactly how she fell. She denies any pain at this time
from the fall. Patient evidently has had multiple falls. She was hospitalized here at [facility] on November 30. She stayed in the hospital for couple days and was ultimately transferred to [facility]. Patient states she signed out from [facility]
Home because she wanted to be in her own place. It sounds like she just got home yesterday or perhaps the day before.
Patient states she is not been eating or drinking very much because she has poor appetite and obviously she was not drinking anything through the night or day today because she was on the floor. She has a mild headache. She denies any chest pain,
shortness of breath, abdominal pain. She denies any pain in her hip or other extremities.
She was found by visiting nurse/aide lying on the floor for unknown amount of time overnight, presumed to be a long time during which she was not eating.
The patient was recently admitted and discharged in late November 2024 to [facility]. She left [facility] AMA to return to her home.
ED course
Vital signs stable
EKG 12/12/2024: A-fib, septal infarct, QTc B4 37 ms
CBC: Notable for macrocytosis, no anemia, low platelets 106 (low during last admission too)
CMP: Notable for creatinine 1.1 (baseline 0.8), BUN 54, total bili 2.5 (up from 1.4 last admission), AST 58 (at baseline), creatinine kinase 326
UA: Not convincing for UTI. 3-5 white blood cells, few bacteria, negative nitrites, negative leukocyte esterase, 3-5 squamous epithelial cells, 2+ ketones, 2+ albumin, 2+ occult blood, clear yellow
COVID-negative
CT head noncontrast 12/12/[address] evidence for acute intracranial hemorrhage or transcortical infarct.
2. Moderate diffuse cerebral and cerebellar volume loss.
3. 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
4. 7.3 mm chronic lacunar infarct in the left thalamus.
5. Moderate white matter leukoaraiosis in both cerebral hemispheres.
Interventions:
NSS 1 L at 150 mg/h
PLAN:
#Dehydration
#Renal insufficiency
#Headache, likely due to dehydration, as CT head negative for acute intracranial hemorrhage or transcortical infarct
Creatinine kinase elevated at 300s, mild rhabdo could be contributing to DAVID is not due to dehydration
� 1 L NSS started in ED. Another liter ordered
� Monitor renal function on CMP
� Encourage oral rehydration
#Dementia
#Concern for lacking capacity, as patient left SNF AMA
� Continue TREAD CUTTER rivastigmine 4.6 mg transdermal
� Psychiatry consult to evaluate for capacity to make medical conditions
#Severe protein calorie malnutrition
Loss 7 kg in half a month, which is greater than 5% in 1 month
� Nutrition consult
#RUQ mild pain to palpation
S/p cholecystectomy
� Limited abdominal ultrasound pending
# Thrombocytopenia
� Continue to monitor
#A-fib
� Continue TREAD CUTTER Xarelto 20 mg p.o. daily
� Continue TREAD CUTTER metoprolol 50 mg p.o. twice daily with parameters to hold when SBP less than 100 or HR less than 60
#Chronic HFpEF
� [place] furosemide 40 mg p.o. daily due to DAVID. Reassess kidney function
# Ambulatory dysfunction/fall
� PT and OT consult
#Hypertension
� Held TREAD CUTTER lisinopril 5 mg p.o. daily due to DAVID. Reassess kidney function. Lisinopril was started during last admission in November 2024
� Continue TREAD CUTTER metoprolol 50 mg p.o. twice daily
#Hypothyroidism
� Continue TREAD CUTTER levothyroxine 75 mcg p.o. daily
� Pending TSH with reflex to T4
#Hyperlipidemia
� Continue atorvastatin 10 mg p.o. nightly
Supplements
� Held potassium chloride 20 mEq p.o. twice daily, as patient is not hypokalemic, and DAVID predisposes to hyperkalemia. Monitor CMP
� Held acetaminophen 1000 mg p.o. twice daily as patient was not complaining of pain, other than headache
� Held calcium carbonate�vitamin D
� Held multivitamin
DVT prophylaxis: Xarelto 20 mg p.o. daily
CODE STATUS: DNR
Diet: Regular
[2024-12-12] MEDS: TOPROL XL 50 MG PO (22:34)
[2024-12-12] MEDS: LIPITOR 10 MG PO (22:39)
[2024-12-12] MEDS: NSS IV (23:14)
[2024-12-13] VITALS (8 sets, daily range): BP systolic 113–162; BP diastolic 73–87; PULSE 67–89; O2SAT 100; BMI 24.5
--- NOTE | 2024-12-13 00:05 | PTCARENOTE ---
received pt from ed at 2200 on 12/12/24. pt ambulated from stretcher to bed with rolling walker. pt A&O x2, disoriented to time, dementia hx. pt offers no current complaints. call [facility] within reach, [facility] alarm plugged in. plan of care ongoing.
[2024-12-13] MEDS: SYNTHROID 75 MCG PO (05:19)
[2024-12-13] MEDS: XARELTO 20 MG PO (08:22)
[2024-12-13] MEDS: EXELON PATCH 4.6 MG TRANSDERM (08:22)
[2024-12-13] MEDS: TOPROL XL 50 MG PO ×2 (08:22→20:28)
--- NOTE | 2024-12-13 08:25 | W.PN.HOSP.TC ---
Addendum entered and electronically signed by Sofiya Del Cid MD 12/13/24 17:34:
I saw and evaluated the patient independently. I reviewed and discussed the resident�s note and agree with findings and plan as documented by Dr. Mcdaniel.
GENERAL: well developed, well nourished, female in no apparent distress
HEENT: NC/AT--no O2 requirements--dark reddish facial cheeks improved
HEART: irreg irreg
LUNGS : clear to auscultation bilaterally
ABDOM: soft, nontender, nondistended, + bowel sounds
EXT: no cyanosis, clubbing, or edema
NEUROLOGIC: grossly intact--strength 5/5 x 4 extremities
: purewick in place
Patient medically stable for discharge. Unfortunately, patient does not have a ride until tomorrow. Discharge order will remain in.
Found on floor--? mechanical fall, prodrome?--pt cannot remember how she fell--VN found her--she signed out of [facility]--Dehydration a possibility--pt with DAVID (baseline creat 0.7-0.8) admission 1.1--CPK 300s--pt denies hitting her head, head
CT neg for acute injuries-stop IVF--follow labs--apprec PT/OT--apprec psych
Headache, likely due to dehydration, as CT head negative for acute intracranial hemorrhage or transcortical infarct--symptomatic treatment
Dementia--Concern for lacking capacity, as patient left SNF AMA� Continue AGRICULTURAL EDUCATION PROFESSOR rivastigmine 4.6 mg transdermal�able to make her own decisions
Severe protein calorie malnutrition--Loss 7 kg in half a month, which is greater than 5% in 1 month� Nutrition consult
RUQ mild pain to palpation--S/p cholecystectomy--abdominal US WNL
Chronic Thrombocytopenia� Continue to monitor
Paroxysmal A-fib� Continue AGRICULTURAL EDUCATION PROFESSOR Xarelto 20 mg p.o. daily� Continue AGRICULTURAL EDUCATION PROFESSOR metoprolol 50 mg p.o. twice daily with parameters to hold when SBP less than 100 or HR less than 60
Chronic HFpEF without exacerbation--holding lasix, restart at d/c
Essential Hypertension� Held lisinopril due to DAVID Lisinopril was started during last admission in November 2024� Continue AGRICULTURAL EDUCATION PROFESSOR metoprolol 50 mg p.o. twice daily
Hypothyroidism� Continue AGRICULTURAL EDUCATION PROFESSOR levothyroxine --TFTs show TSH 0.11 with free T4 2.2, high--decreased synthroid dose to 50mcgs--recheck TFTs in 4 weeks
Hyperlipidemia� Continue atorvastatin
Supplements� Held for now
DVT proph-- Xarelto
CODE STATUS-- DNR
Original Note:
Today's Communication/Plan
-
Cr improved from 1.1 to 0.9 s/p 2 L IVF.
Patient had no complaints.
Stable for discharge with visiting nurse services.
Assessment / Plan
Assessment / Plan
Impression:
Ms. Yin Haney is a 89yoF with PMH notable for pA-fib (Xarelto), HTN, HLD, hypothyroidism, bilateral lower extremity edema, dementia, urge incontinence, and bilateral carotid atherosclerosis, who presents for a fall and not being able to
get up overnight until a visiting nurse found and helped her in the morning.
Presented to ED via ambulance after visiting nurse or aide found her laying on the floor. Patient fell yesterday and has had multiple falls. Patient admits she was not using her walker. She does not recall exactly how she fell, but she remembers
she was vacuuming. She denies any pain at this time from the fall. She was hospitalized here at [facility] on November 30. She stayed in the hospital for couple days and was discharged to [facility] home. Patient states she signed out from [facility]
Home AMA because she felt the nurses were rude to her and did not want to take care of her.
Patient states she has not been eating or drinking very much because she has poor appetite. She was not drinking anything through the night or day today because she could not get up from the floor. On presentation, she had a mild headache. She
denied chest pain, shortness of breath, abdominal pain. She denied pain in her hip or other extremities.
ED course
Vital signs stable
EKG 12/12/2024: A-fib, septal infarct, QTc B4 37 ms
CBC: Notable for macrocytosis, no anemia, low platelets 106 (low during last admission too)
CMP: Notable for creatinine 1.1 (baseline 0.8), BUN 54, total bili 2.5 (up from 1.4 last admission), AST 58 (at baseline), creatinine kinase 326
UA: Not convincing for UTI. 3-5 white blood cells, few bacteria, negative nitrites, negative leukocyte esterase, 3-5 squamous epithelial cells, 2+ ketones, 2+ albumin, 2+ occult blood, clear yellow
COVID-negative
CT head noncontrast 12/12/[address] evidence for acute intracranial hemorrhage or transcortical infarct.
2. Moderate diffuse cerebral and cerebellar volume loss.
3. 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
4. 7.3 mm chronic lacunar infarct in the left thalamus.
5. Moderate white matter leukoaraiosis in both cerebral hemispheres.
Interventions:
NSS 1 L at 150 mg/h
PLAN:
#Dehydration
#Renal insufficiency
#Headache, likely due to dehydration, as CT head negative for acute intracranial hemorrhage or transcortical infarct
Cr 1.1, baseline Cr 0.8
Creatinine kinase elevated at 300s, mild rhabdo could be contributing to DAVID is not due to dehydration
� 1 L NSS started in ED. Another liter ordered
� Cr improved to 0.9 from 1.1
� Encourage oral rehydration
#Dementia
#Concern for lacking capacity, as patient left SNF AMA
� Continue AGRICULTURAL EDUCATION PROFESSOR rivastigmine 4.6 mg transdermal
� Psychiatry consult to evaluate for capacity: pt appears to have capacity
#Moderate protein calorie malnutrition
Loss 7 kg in half a month, which is greater than 5% in 1 month
� Nutrition consult: recommend 1g/kg
#RUQ mild pain to palpation
S/p cholecystectomy
� Abdominal ultrasound: No sonographic evidence for an acute abnormality of the abdomen.
# Thrombocytopenia
� Continue to monitor
#A-fib
� Continue AGRICULTURAL EDUCATION PROFESSOR Xarelto 20 mg p.o. daily
� Continue AGRICULTURAL EDUCATION PROFESSOR metoprolol 50 mg p.o. twice daily with parameters to hold when SBP less than 100 or HR less than 60
#B/l lower extremity edema
� [place] furosemide 40 mg p.o. daily due to DAVID. Reassess kidney function. Restarted at discharge
# Ambulatory dysfunction/fall
� PT and OT consult: home health per PT
#Hypertension
� Held AGRICULTURAL EDUCATION PROFESSOR lisinopril 5 mg p.o. daily due to DAVID. Reassess kidney function.
- Lisinopril was started during last admission in November 2024. Possible it caused hypotension and syncope/fall. Discontinued at discharge. PCP may add lisinopril back/adjust antihypertensives.
� Continue AGRICULTURAL EDUCATION PROFESSOR metoprolol 50 mg p.o. twice daily
#Hypothyroidism
AGRICULTURAL EDUCATION PROFESSOR levothyroxine 75 mcg p.o. daily.
TSH 0.11 low, T4 2.22 high
- Decreased levothyroxine to 50 mcg po daily
#Hyperlipidemia
� Continue atorvastatin 10 mg p.o. nightly
Supplements
� Held potassium chloride 20 mEq p.o. twice daily, as patient is not hypokalemic, and DAVID predisposes to hyperkalemia. Monitor CMP
� Held acetaminophen 1000 mg p.o. twice daily as patient was not complaining of pain, other than headache
� Held calcium carbonate�vitamin D
� Held multivitamin
DVT prophylaxis: Xarelto 20 mg p.o. daily
CODE STATUS: DNR
Diet: low cholesterol
Anticipated Discharge: Today
Subjective/Interval History
-
Date of Service: December 13, 2024
No acute events overnight. Patient had no complaints this morning.
Objective Data
-
Labs:
Hematology and Coagulation - Last 24 hours
12/12/24 12/13/24 Range/Units
14:38 07:50
WBC 8.4 4.9 (4.8-10.8) 10^3/uL
RBC 4.42 3.64 L (4.20-5.40) 10^6/uL
Hgb 15.6 13.5 (12.0-16.0) g/dL
Hct 45.3 38.9 (37.0-47.0) %
MCV 102.5 H 106.9 H (81.0-99.0) fL
MCH 35.3 H 37.1 H (27.0-31.0) pg
MCHC 34.4 34.7 (33.0-37.0) g/dL
RDW 11.7 11.9 (11.5-14.5) %
Plt Count 106 L 84 L D (130-400) 10^3/uL
Plt Count Comment Yes
MPV Not Reportable Not Reportable
Abs Immat Gran (auto) 0.0 (0-0.05) 10^3/uL
Absolute Neuts (auto) 6.0 (1.4-6.5) 10^3/uL
Absolute Lymphs (auto) 0.9 L (1.2-3.4) 10^3/uL
Absolute Monos (auto) 1.5 H (0.1-0.6) 10^3/uL
Absolute Eos (auto) 0.0 (0-0.7) 10^3/uL
Absolute Basos (auto) 0.0 (0-0.2) 10^3/uL
Total Counted 100
Immature Gran % 0.4 (0-0.5) %
Neutrophils % 70.8 (42.2-75.2) %
Lymphocytes % 10.9 L (20.5-51.1) %
Monocytes % 17.7 H (1.7-9.3) %
Eosinophils % 0.0 (0-6) %
Basophils % 0.2 (0-2) %
Nucleated RBC % 0 %
Abs Neuts (Manual) 3.3 (1.4-6.5) 10^3/uL
Segmented Neutrophils 69 (42-75) %
Band Neutrophils 0 (0-3) %
Lymphocytes (Manual) 15 L (20-51) %
Monocytes (Manual) 16 H (2-9) %
Normal RBC Morphology No
Anisocytosis Slight
Blood Gas and Chemistry - Last 24 hours
12/12/24 12/13/24 Range/Units
14:38 07:50
Sodium 137 136 (135-145) mmol/L
Potassium 4.0 3.9 (3.5-5.1) mmol/L
Chloride 99 106 (98-107) mmol/L
Carbon Dioxide 27 24 (22-30) mmol/L
BUN 54 H 36 H (7-17) mg/dl
Creatinine 1.1 H 0.9 (0.6-1.0) mg/dL
Estimated Creat Clear 27 33 ml/min
eGFR 48.63 > 60.00
Glucose 99 85 (70-99) mg/dl
Calcium 10.1 9.3 (8.4-10.2) mg/dl
Magnesium 1.8 (1.6-2.3) mg/dl
Total Bilirubin 2.5 H 2.2 H (0.2-1.3) mg/dl
AST 58 H 48 H (14-36) U/L
ALT 26 22 (0-35) U/L
Alkaline Phosphatase 100 75 (38-126) U/L
Creatine Kinase 326 H (30-135) U/L
Total Protein 8.0 6.5 (6.3-8.2) g/dl
Albumin 4.9 3.7 (3.5-5.0) g/dl
TSH (Reflex) 0.11 L (0.47-4.68) uIU/ml
Free T4 2.22 H (0.78-2.19) ng/dl
Other lab results - Last 24 hours
12/12/24 Range/Units
14:45
Urine Color Yellow
Urine Clarity Clear (Clear)
Urine pH 5.0 (5.0-9.0)
Ur Specific [place] 1.020 (<1.030)
Urine Ketones 2+ A (Negative)
Ur Occult Blood Reflex 2+ A (Negative)
Urine Nitrite (Reflex) Negative (Negative)
Urine Bilirubin Negative (Negative)
Urine Urobilinogen Negative (Neg - 1+)
Leukocyte Esterase Rfl Negative (Negative)
Urine RBC 0-2 (0-2) /HPF
Urine WBC (Reflex) 3-5 (0-5) /HPF
Ur Squamous Epith Cells 3-5 (Few) /LPF
Urine Bacteria (Reflex) Few A (Negative)
Urine Glucose Negative (Negative)
Urine Albumin (Reflex) 2+ A (Neg - Trace)
Vital Signs:
Vital Signs
Temp Pulse Resp BP Pulse Ox
97.8 F 83 18 113/76 96
12/13/24 07:16 12/13/24 07:16 12/13/24 07:16 12/13/24 07:16 12/13/24 07:16
I&O
12/12/24 12/13/24 12/14/24
06:59 06:59 06:59
Intake Total 780 / 780
Output Total 500 / 500
Balance 280 / 280
Review of Systems
-
History Source: Patient
All other systems: Reviewed and negative
Physical Exam
-
General: Well Developed, Well Nourished, No Apparent Distress, Comfortable and Conversant
HEENT: Normocephalic, Atraumatic, Moist Mucous Membranes, Anicteric, No Ptosis, Nose Appears Normal and Ears Appear Normal
Respiratory: Clear to Auscultation
Cardiac: Regular Rhythm and S1/S2
GI: Soft, Nontender, Nondistended and Normal Bowel Sounds
Musculoskeletal: No Clubbing, No Cyanosis, Edema, Right Lower Extrem and Edema, Left Lower Extrem
Skin: Warm, Dry and Rash (rosacea since admission)
Neuro: Awake, Alert, Nonfocal/Grossly Intact and Central Nerve's Intact
Psych: Calm
[2024-12-13 08:59] LABS: Hematocrit 38.9 % (37.0-47.0); Hemoglobin 13.5 g/dL (12.0-16.0); Mean Corp Hgb Conc. 34.7 g/dL (33.0-37.0); Mean Corpuscular Volume 106.9 fL (81.0-99.0); Red Cell Dist. Width 11.9 % (11.5-14.5)
[2024-12-13 09:12] LABS: ALT (SGPT) 22 U/L (0-35); AST (SGOT) 48 U/L (14-36); Albumin 3.7 g/dl (3.5-5.0); Alkaline Phosphatase 75 U/L (38-126); Blood Urea Nitrogen 36 mg/dl (7-17); Calcium 9.3 mg/dl (8.4-10.2); Carbon Dioxide 24 mmol/L (22-30); Chloride 106 mmol/L (98-107); Estimated Creatinine Clearance 33 ml/min; Glucose 85 mg/dl (70-99); Magnesium 1.8 mg/dl (1.6-2.3); Potassium 3.9 mmol/L (3.5-5.1); Sodium 136 mmol/L (135-145); Total Protein 6.5 g/dl (6.3-8.2); eGFR > 60.00
[2024-12-13 09:42] LABS: Absolute Neutrophils -Man Diff 3.3 10^3/uL (1.4-6.5); Anisocytosis Slight; Normal RBC Morphology No; Platelet Count 84 10^3/uL (130-400); Platelets Checked Yes
[2024-12-13 09:43] LABS: Total Cells Counted 100
--- NOTE | 2024-12-13 12:29 | CS.PSYCHR ---
Addendum entered and electronically signed by Go Martinez MD 12/13/24 16:20:
I spoke with pt's sister as well as her son. They are aware of pt's preference to return home, distress at care she received and saw at [facility]. Are interested in information about costs of assisted living, but unlikely pt would be able to
afford more that a year at $6K per month. Willing to help with in home services.
Original Note:
Consult Summary - Psychiatry
-
pt seen by me in consultation for capacity for medical decision-making.
89 yo woman admitted from home after being found down from fall. Recently discharged from [facility] to [facility]; pt did not like the care she received there, went home to her apt. Apparently fell to floor, was unable to
get up or locate her phone. Was found by health aide who called 911, brought to ED. Evaluated and admitted out of concern for lack of safe discharge.
Pt has history of mild cognitive impairment. Last admission last month showed acute to subacute CVA on MRI.
Takes xarelto for paroxysmal a-fib
Takes levothyroxine for hypothyroidism, TSH and free T4 indicate may be overcorrected, has TSH of 0.11 and T4 2.22
Noted to have lost weight over past month.
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
safety; wants to get LifeAlert pendant, wants to have meals on wheels arranged, hopes to have visiting home health aide daily if possible.
Agrees that son and sister have her best interests at heart, will listen to their advice, but wants to make own decisions.
On exam pt is sitting in bed in hospital gowns, hair a bit askew. Oriented to self and place, 'but I always get year wrong. Why do I have to know the year?' Gives correct age/date of . Offered to have patient try to work out year by adding her
age to her year of ; worked on this with pen and paper for some time, flustered that she could not get it. Denies thoughts of suicide (acknowledges that she had mentioned that when she first came in, but 'I'm a [place], we don't believe in
that' and not feeling so hopeless as before.) Affect reactive through full range. No signs of psychosis.
Impression: Mild cognitive impairment
Will discuss with family how they wish to proceed. If they are strongly in favor of forcing patient to be in facility (unlikely as best I can tell) will return for formal [facility] Status ([facility]) assessment.
Best approach will be to get in home services as much as possible to keep pt there.
--- NOTE | 2024-12-13 14:16 | VNURNOTE ---
Chart reviewed. Home Health Liaison spoke with patient's son Chidi to discuss [facility] nurse/therapy, visits, schedule and homebound status. He is agreeable and understands that visits at home will be 2-3 x per week to assess and teach medical
management. Son is aware that [facility] will contact them for start of care within a week after discharge from . Offered to email him list of caregivers/companions. He declined stating he would speak to the SPORTS PHYSIOLOGIST once pt on board w/VN.
[facility] referral completed in [facility].
--- NOTE | 2024-12-13 16:12 | CM ---
Addendum entered by Yin Walker 12/13/24 18:25:
please send referral to [facility] for waiver assessment and review of possible programs to help patient.
Addendum entered by Yin Walker 12/13/24 16:24:
CM called to patient son and VM left about wheelchair van and referral to [facility]. CM will continue to follow for discharge planning needs.
Plan; home with son to transport.; [facility] to Follow and [facility]
Original Note:
Patient seen at bedside. OBS form completed and signed form placed on chart. Patient plan is to return to [facility] with [facility] and family aware. Patient has ride for discharge Patient lives in apartment with elevator access. Patient PCP JEAN
[place]. Patient uses [facility] on [address] in [place]. CM will continue to follow for discharge planning needs
Plan; home with [facility] to follow for supports
--- NOTE | 2024-12-13 17:19 | W.DCSUMMARY ---
Addendum entered and electronically signed by Alina Domingo MD, Resident 12/14/24 15:56:
Actual discharge date: 12/14/2024.
Family could not moss picker patient until today.
Addendum entered and electronically signed by Sofiya Del Cid MD 12/13/24 18:06:
Read, reviewed, and agree. See same day progress note for additional details. Time spent coordinating care, DC planning, review of DC plan of care with resident, transition of care, review of records in EMR, med rec, consults, notes, d/w
consultants, nursing, family, and CM = 45 minutes
Original Note:
Discharge Summary
Discharge Data
Date of Admission: 12/12/24
Date of Discharge: 12/13/24
Total time spent discharging patient (in min): 45
-
Pending Results: No
Hospital Course
Discharging Physician : Dr. Del Cid and Dr. Mcdaniel
Disposition : home with home care
Principal Discharge diagnosis : DAVID
Chronic Discharge diagnosis :
Mild cognitive impairment
Urge incontinence
Bilateral carotid atherosclerosis
Bilateral lower extremity edema
Hypertension
Hypothyroidism
Hyperlipidemia
Hospital Course :
Ms. Yin Haney is a 89yoF with PMH notable for pA-fib (Xarelto), HTN, HLD, hypothyroidism, bilateral lower extremity edema, dementia, urge incontinence, and bilateral carotid atherosclerosis, who presents for a fall and not being able to
get up overnight until a visiting nurse found and helped her in the morning.
Presented to ED via ambulance after visiting nurse or aide found her laying on the floor. Patient fell yesterday and has had multiple falls. Patient admits she was not using her walker. She does not recall exactly how she fell, but she remembers
she was vacuuming. She denies any pain at this time from the fall. She was hospitalized here at [facility] on November 30. She stayed in the hospital for couple days and was discharged to [facility]. Patient states she signed out from [facility] AMA because she felt the nurses were rude to her and did not want to take care of her.
Patient states she has not been eating or drinking very much because she has poor appetite. She was not drinking anything through the night or day today because she could not get up from the floor. On presentation, she had a mild headache. She
denied chest pain, shortness of breath, abdominal pain. She denied pain in her hip or other extremities.
Problem 1: DAVID and dehydration
IV normal saline given. Creatinine improved from 1.1-0.9. Baseline is around 0.8.
Lisinopril was held, since it was a new medication added during last admission, which was recent. Patient could have fallen due to hypotension with the addition of lisinopril. PCP may decide to add it back or adjust antihypertensives as necessary.
Problem 2: Mild cognitive impairment
Psychiatry consult for capacity. Psychiatry did not appear to feel that patient lacked capacity.
Problem 3: Hypothyroidism
TSH low and free T4 high. Decreased levothyroxine from 75 mg to 50 mg daily
Problem 4: Right upper quadrant mild pain to palpation
Abdominal ultrasound demonstrated no sonographic evidence for an acute abnormality of the abdomen.
Problem 5: Moderate protein calorie malnutrition
Patient lost 15 pounds in 2 weeks, as measured in the hospital between the 2 admissions. Parts Facilitator consulted and recommended 1 g/kg.
Important imaging findings :
CT head noncontrast 12/12/[address] evidence for acute intracranial hemorrhage or transcortical infarct.
2. Moderate diffuse cerebral and cerebellar volume loss.
3. 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
4. 7.3 mm chronic lacunar infarct in the left thalamus.
5. Moderate white matter leukoaraiosis in both cerebral hemispheres.
Abdominal ultrasound 12/13/2024
No sonographic evidence for an acute abnormality of the abdomen.
Procedure findings : none
Discharge Plan
-
Patient Disposition: Home with Home Care
Discharge Diagnosis/Procedures: DAVID
Dehydration
Mild cognitive impairement
Hypothyroidism
Condition: Good
Diet: Low Fat and Low Sodium
Activity: With assistance
Driving Restrictions: As prior to admission
Bathing Restrictions: None
Other Services: VN
Referrals:
Sravani Pelaez CRNP [Family Provider, Internal Medicine]
Additional Discharge Medication Instructions: Your levothyroxine was decreased to 50mcg daily from 75mcg daily based on your thyroid hormone levels.
Please stop taking lisinopril. It was added during your last recent hospital stay, and it may have caused your blood pressure to be too low, which can cause you to faint/fall. Please follow up with your PCP regarding your blood pressure to see if
your antihypertensive regiment should be adjusted.
Prescriptions:
New
levothyroxine 50 mcg Tablet
50 mcg PO DAILY @ 0600 Qty: 30 0RF
Continued
furosemide 20 MG tablet
40 mg PO DAILY
potassium chloride 20 MEQ tablet,ER particles/crystals
20 meq PO BID
atorvastatin 10 MG tablet
10 mg PO HS
multivitamin Tablet
1 tab PO DAILY
acetaminophen 500 mg Tablet
1,000 mg PO BID
calcium carbonate-vitamin D3 [Calcium 600 + D(3)] 600 mg-10 mcg (400 unit) Tablet
2 tab PO DAILY
metoprolol succinate 50 mg tablet extended release 24 hr
50 mg PO BID
Xarelto 20 mg Tablet
20 mg PO DAILY
rivastigmine 4.6 mg/24 hour Patch 24 Hour
4.6 mg TRANSDERMAL DAILY
Discontinued
levothyroxine 75 mcg Tablet
75 mcg PO DAILY
lisinopril 5 mg Tablet
5 mg PO DAILY Qty: 30 0RF
Discharge Orders:
Discharge Patient (As Directed); Ordered 12/13/24
Ordered By: Kaila Mcdaniel
Discharge Date and Time
Print Language: ITALIAN
[2024-12-13] MEDS: NSS IV (18:00)
--- NOTE | 2024-12-13 18:37 | PTCARENOTE ---
pt w/ DC order. IV pulled out, DC tele monitor. DC papers reviewed w/ the pt. pt stated family members unable to pick her up today. 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 made aware.
[2024-12-13] MEDS: LIPITOR 10 MG PO (20:28)
[2024-12-14 03:28] VITALS: BP 143/72
[2024-12-14] MEDS: SYNTHROID 50 MCG PO (06:32)
[2024-12-14 07:00] VITALS: BP 139/92
[2024-12-14] MEDS: TOPROL XL 50 MG PO (08:48)
[2024-12-14] MEDS: EXELON PATCH 4.6 MG TRANSDERM (08:48)
[2024-12-14 09:03] LABS: Hematocrit 38.0 % (37.0-47.0); Hemoglobin 13.4 g/dL (12.0-16.0); Mean Corp Hgb Conc. 35.3 g/dL (33.0-37.0); Mean Corpuscular Volume 102.2 fL (81.0-99.0); Nucleated Red Blood Cells % 0 %; Red Cell Dist. Width 11.9 % (11.5-14.5)
[2024-12-14 09:33] LABS: ALT (SGPT) 22 U/L (0-35); AST (SGOT) 47 U/L (14-36); Albumin 3.8 g/dl (3.5-5.0); Alkaline Phosphatase 78 U/L (38-126); Blood Urea Nitrogen 25 mg/dl (7-17); Calcium 9.5 mg/dl (8.4-10.2); Carbon Dioxide 27 mmol/L (22-30); Chloride 104 mmol/L (98-107); Estimated Creatinine Clearance 33 ml/min; Glucose 93 mg/dl (70-99); Magnesium 1.7 mg/dl (1.6-2.3); Potassium 3.7 mmol/L (3.5-5.1); Sodium 139 mmol/L (135-145); Total Protein 6.4 g/dl (6.3-8.2); eGFR > 60.00
--- NOTE | 2024-12-14 09:56 | CM ---
Patient has been medically cleared for discharge to home with [facility] RN, PT/OT services. Patient has arranged for transport home.
[2024-12-14 09:58] LABS: Platelet Count 76 10^3/uL (130-400)
[2024-12-14 11:12] VITALS: BP 171/71
--- NOTE | 2024-12-14 11:18 | PTCARENOTE ---
Patient's sister is in patient room and demanding to take patient home now. RN explained that physician would like to see patient before discharge and discharge instructions need to be reviewed with patient. Patient's sister states, 'Who cares, we
are leaving.' Family member is yelling at nurse and superintendent ammunition storage. Physician made aware of sister's and patient decision to leave now. Physician made aware of patient's recent BP 171/70 T 96.8.
--- NOTE | 2024-12-14 15:31 | W.PN.HOSP.TC ---
Addendum entered and electronically signed by Sofiya Del Cid MD 12/14/24 16:00:
Patient is actually discharged yesterday 12/13/2024. Son told case management that he could not pick the patient up until today. Case management attempted to call patient's son back for possibility of a Lyft ride home. Son did not return case
management's call.
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 They did not wish to stay until my evaluation.
Patient and her sister left the hospital.
Original Note:
Today's Communication/Plan
-
Cr improved from 1.1 to 0.9 s/p 2 L IVF.
Patient had no complaints.
Stable for discharge with visiting nurse services.
Assessment / Plan
Assessment / Plan
Impression:
Ms. Yin Haney is a 89yoF with PMH notable for pA-fib (Xarelto), HTN, HLD, hypothyroidism, bilateral lower extremity edema, dementia, urge incontinence, and bilateral carotid atherosclerosis, who presents for a fall and not being able to
get up overnight until a visiting nurse found and helped her in the morning.
Presented to ED via ambulance after visiting nurse or aide found her laying on the floor. Patient fell yesterday and has had multiple falls. Patient admits she was not using her walker. She does not recall exactly how she fell, but she remembers
she was vacuuming. She denies any pain at this time from the fall. She was hospitalized here at [place] on November 30. She stayed in the hospital for couple days and was discharged to [facility] (formerly [facility]). Patient states she signed out from [facility]
Home AMA because she felt the nurses were rude to her and did not want to take care of her.
Patient states she has not been eating or drinking very much because she has poor appetite. She was not drinking anything through the night or day today because she could not get up from the floor. On presentation, she had a mild headache. She
denied chest pain, shortness of breath, abdominal pain. She denied pain in her hip or other extremities.
PLAN:
#Dehydration
#Renal insufficiency
#Headache, likely due to dehydration, as CT head negative for acute intracranial hemorrhage or transcortical infarct
- Cr 1.1, baseline Cr 0.8
- Creatinine kinase elevated at 300s, mild rhabdo could be contributing to DAVID is not due to dehydration
� 1 L NSS started in ED. Another liter ordered
� Cr improved to 0.9 from 1.1 (has stabilized at 0.9 today)
� Encourage oral rehydration
#Dementia
#Concern for lacking capacity, as patient left SNF AMA
� Continue SDV PILOT/NAVIGATOR/DDS OPERATOR rivastigmine 4.6 mg transdermal
� Psychiatry consult to evaluate for capacity: pt appears to have capacity
#Moderate protein calorie malnutrition
Loss 7 kg in half a month, which is greater than 5% in 1 month
� Nutrition consult: recommend 1g/kg
#RUQ mild pain to palpation
S/p cholecystectomy
� Abdominal ultrasound: No sonographic evidence for an acute abnormality of the abdomen.
# Thrombocytopenia
� Continue to monitor
#A-fib
� Continue SDV PILOT/NAVIGATOR/DDS OPERATOR Xarelto 20 mg p.o. daily
� Continue SDV PILOT/NAVIGATOR/DDS OPERATOR metoprolol 50 mg p.o. twice daily with parameters to hold when SBP less than 100 or HR less than 60
#B/l lower extremity edema
� [place] furosemide 40 mg p.o. daily due to DAVID. Reassess kidney function. Restarted at discharge
# Ambulatory dysfunction/fall
� PT and OT consult: home health per PT
#Hypertension
� Held SDV PILOT/NAVIGATOR/DDS OPERATOR lisinopril 5 mg p.o. daily due to DAVID. Reassess kidney function.
- Lisinopril was started during last admission in November 2024. Possible it caused hypotension and syncope/fall. Discontinued at discharge. PCP may add lisinopril back/adjust antihypertensives.
� Continue SDV PILOT/NAVIGATOR/DDS OPERATOR metoprolol 50 mg p.o. twice daily
#Hypothyroidism
SDV PILOT/NAVIGATOR/DDS OPERATOR levothyroxine 75 mcg p.o. daily.
TSH 0.11 low, T4 2.22 high
- Decreased levothyroxine to 50 mcg po daily
#Hyperlipidemia
� Continue atorvastatin 10 mg p.o. nightly
Supplements
� Held potassium chloride 20 mEq p.o. twice daily, as patient is not hypokalemic, and DAVID predisposes to hyperkalemia. Monitor CMP
� Held acetaminophen 1000 mg p.o. twice daily as patient was not complaining of pain, other than headache
� Held calcium carbonate�vitamin D
� Held multivitamin
DVT prophylaxis: Xarelto 20 mg p.o. daily
CODE STATUS: DNR
Diet: low cholesterol
Anticipated Discharge: Today
Subjective/Interval History
-
Date of Service: December 14, 2024
Objective Data
-
Labs:
Laboratory Results
12/14/24
07:40
WBC 5.6
Hgb 13.4
Hct 38.0
Plt Count 76 L
Sodium 139
Potassium 3.7
Chloride 104
Carbon Dioxide 27
BUN 25 H
Creatinine 0.9
Glucose 93
Calcium 9.5
Total Bilirubin 1.7 H
AST 47 H
ALT 22
Alkaline Phosphatase 78
Vital Signs:
Vital Signs
Temp Pulse Resp BP Pulse Ox
96.8 F L 85 18 171/71 98
12/14/24 11:12 12/14/24 11:12 12/14/24 11:12 12/14/24 11:12 12/14/24 11:12
I&O
12/13/24 12/14/24 12/15/24
06:59 06:59 06:59
Intake Total 780 / 780 720 / 720 360 / 360
Output Total 500 / 500
Balance 280 / 280 720 / 720 360 / [address]: IMPRESSION:
1. No CT evidence for acute intracranial hemorrhage or transcortical infarct.
2. Moderate diffuse cerebral and cerebellar volume loss.
3. 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
4. 7.3 mm chronic lacunar infarct in the left thalamus.
5. Moderate white matter leukoaraiosis in both cerebral hemispheres.
Abdomen Ultrasound: IMPRESSION:
No sonographic evidence for an acute abnormality of the abdomen.
Review of Systems
-
History Source: Patient
All other systems: Reviewed and negative
Physical Exam
-
General: Well Developed, Well Nourished, No Apparent Distress, Comfortable and Conversant
HEENT: Normocephalic, Atraumatic, Moist Mucous Membranes, Anicteric, No Ptosis, Nose Appears Normal and Ears Appear Normal
Respiratory: Clear to Auscultation
Cardiac: Regular Rhythm and S1/S2
GI: Soft, Nontender, Nondistended and Normal Bowel Sounds
Musculoskeletal: No Clubbing, No Cyanosis, Edema, Right Lower Extrem and Edema, Left Lower Extrem
Skin: Warm, Dry and Rash (rosacea since admission)
Neuro: Awake, Alert and Nonfocal/Grossly Intact
Psych: Calm
Data Reviewed
-
Labs: Labs Reviewed by me and Discussed with Physician
--- NOTE | 2024-12-14 16:55 | W.PN.UPDATE ---
Update Note
Progress Note Update
pt seen this am to assess progress. events surrounding discharge noted. pt states sister is here, she feels ready to go. reviewed with pt the steps she will take in efforts to avoid another fall; agreeable to lockbox for keys so caregivers can enter
even if she is unable to rise or answer phone. pleasant, happy to be going home, is considering how much longer she can do this, hoping for quite a while, exploring other SNF options
== END 2024-12-14 11:58 | disposition home health service (06) ==
LOC: 4 EAST ACU 19:41
PROVIDERS: Emergency Medicine; ADMITTING PHYSICIAN Internal Medicine; CONSULT PHYSICIAN Psychiatry & Neurology Psychiatry; EMERGENCY PHYSICIAN Emergency Medicine; FAMILY PHYSICIAN Nurse Practitioner Primary Care
DX: N17.9 Acute kidney failure, unspecified (principal); E86.0 Dehydration; E03.9 Hypothyroidism, unspecified; S09.90XA Unspecified injury of head, initial encounter; D69.6 Thrombocytopenia, unspecified; I48.0 Paroxysmal atrial fibrillation; E43 Unspecified severe protein-calorie malnutrition; Z68.24 Body mass index [BMI] 24.0-24.9, adult; I50.32 Chronic diastolic (congestive) heart failure; I11.0 Hypertensive heart disease with heart failure; R29.6 Repeated falls; R51.9 Headache, unspecified; W19.XXXA Unspecified fall, initial encounter; Z66 Do not resuscitate; Z79.01 Long term (current) use of anticoagulants; Z79.890 Hormone replacement therapy; Z79.899 Other long term (current) drug therapy; E78.5 Hyperlipidemia, unspecified
CPT/HCPCS: 70450; 76700; 80053; 81003; 81015; 82550; 83735; 84439; 84443; 85025; 87070; 93005; 97163; 97166; 99285; G0378

== ENCOUNTER 2025-01-18 14:18 | Inpatient (IN) | payer OTHER, SELFPAY ==
[2025-01-15] VITALS (9 sets, daily range): BP systolic 126–186; BP diastolic 51–93; BMI 27.4
[2025-01-15 15:07] LABS: Hematocrit 34.7 % (37.0-47.0); Hemoglobin 12.5 g/dL (12.0-16.0); Mean Corp Hgb Conc. 36.0 g/dL (33.0-37.0); Mean Corpuscular Volume 106.8 fL (81.0-99.0); Nucleated Red Blood Cells % 0 %; Platelet Count 124 10^3/uL (130-400); Red Cell Dist. Width 13.2 % (11.5-14.5)
[2025-01-15 15:46] LABS: ALT (SGPT) 19 U/L (0-35); AST (SGOT) 48 U/L (14-36); Albumin 4.1 g/dl (3.5-5.0); Alkaline Phosphatase 63 U/L (38-126); Blood Urea Nitrogen 23 mg/dl (7-17); Calcium 9.6 mg/dl (8.4-10.2); Carbon Dioxide 26 mmol/L (22-30); Chloride 104 mmol/L (98-107); Glucose 96 mg/dl (70-99); Potassium 4.6 mmol/L (3.5-5.1); Sodium 135 mmol/L (135-145); Total Protein 6.9 g/dl (6.3-8.2); eGFR > 60.00
[2025-01-15] MEDS: NSS 1000 IV (18:51)
[2025-01-15 19:27] LABS: COVID-19 Antigen Negative (Negative)
--- NOTE | 2025-01-15 19:40 | ED.GENMED ---
History of Present Illness
<Clyde Rosen PA-C - Last Filed: 01/15/25 22:18>
General
Chief Complaint: Headache
Source: patient
Time Seen by Provider: 01/15/25 18:29
History of Present Illness
History of Present Illness:
89-year-old female with past medical history of CVA, atrial fibrillation, hypertension, hyperlipidemia, hypothyroidism presenting to the emergency department via ambulance for generalized weakness, multiple near falls today, headache, feeling
flushed and generally unwell. Patient notes a history of multiple falls requiring admission and rehab placements within the recent past. Currently lives alone in an apartment. Denies any chest pain, shortness of breath, known fevers, cough,
URI-like symptoms or any other concerns. She did not take anything for her symptoms prior to arrival. Patient notes that she did have a home therapist who saw her today and she was the one who recommended patient come to the ER due to the weakness.
Past History
<Clyde Rosen PA-C - Last Filed: 01/15/25 22:18>
Past History
ED Past Medical History: Arrthythmia (Atrial fib), CVA, HTN, Hypercholesterolemia and Other (Orthostatic hypotension)
ED Past Surgical History: Bowel resection, Cardiac (cardioversion), Cholecystectomy and Orthopedic (Jaswinder knee replacements)
Social History
Tobacco: Non-smoker
Alcohol: Occasional
Drug: None
Personal:
Living: alone
Employment: Retired
Family History
Family History: Other (Reviewed and Noncontributory)
Review of Systems
<Clyde Rosen PA-C - Last Filed: 01/15/25 22:18>
Review of Systems
All Other Systems: ROS reviewed and negative except as documented in HPI and ROS
Phy Exam
<DE Aviles Last Filed: 01/15/25 22:18>
Physical Exam
Physical Exam:
GENERAL: Alert , in no apparent distress
EYE: clear conjunctiva b/l
HEAD: NCAT
ENT: o/p clr, mmm.
CARDIAC: Irregularly irregular but rate controlled
LUNGS: Clear breath sounds bilaterally, no acute respiratory distress, no wheezes/rales/rhonchi
ABDOMEN: Soft, without focal tenderness, no r/g, no cvat
NEUROLOGICAL: Alert and oriented
SKIN: Warm and dry, skin intact.
MUSCULOSKELETAL: No edema, well perfused.
PSYCH: Normal and appropriate interaction.
Scores
<Clyde Rosen PA-C - Last Filed: 01/15/25 22:18>
Heart Failure Risk
Heart Failure Risk Score: Not Applicable
Heart Score for Chest Pain Patients
STEMI patient?: Not applicable
Withdrawal Assessment of Alcohol
Withdrawal Assessment Completed?: Not applicable
Course
<Clyde Rosen PA-C - Last Filed: 01/15/25 22:18>
Orders/Labs/Results
Orders:
Orders
01/15/25 14:43
Electrocardiogram (*1) Urgent
Reason for Study: Fatigue / Weakness
EKG- Treatment ONCE
01/15/25 14:51
Complete Blood Count/With Diff Urgent
Comprehensive Metabolic Panel Urgent
01/15/25 18:29
0.9% Sodium Chloride 1000 ml [Nss] 1,000 ml IV BOLUS
01/15/25 18:43
COVID-19 Antigen Urgent
Source: Nasal Swab
Influenza A+B Rapid Molecular Urgent
JULITO Source: Nasal Swab
Specimen Description:
01/15/25 19:35
CT Head W/o Iv Contrast Urgent
Comment:
Reason For Exam: weakness, falls
01/15/25 21:36
Admit/Transfer Patient As Directed
Co-Sign Provider:
Level of Care: Observation services
Assign to:: Telemetry
Physician / Group: Silvio
Diagnosis: weakness
Reason for Telemetry: CVA/TIA
Date to Stop Telemetry: 01/18/25
Time to Stop Telemetry: 11:00
PRN Pain Medication Management As Directed
May give lesser potent ordered pain med per pt: Yes
preference::
Protocol:: Medication orders for pain may be administered in a
manner that supports deferring to patient preference
when the pt is:
- Requesting an ordered lesser potent pain medication.
Least to most potent pain medications are defined
as: acetaminophen < NSAID < tramadol < opioids
(morphine, oxycodone, hydromorphone).
- Requesting a lesser dose of the same medication IF
ORDERED.
- Requesting a less intrusive route of administration
if both routes are prescribed by the provider (PO <
IV).
01/15/25 21:37
Code Status As Directed
Resuscitation Status: Do not resuscitate
Reached after discussion with pt or family/Healthcare POA: Yes
DNR Bracelet Application ONCE
01/18/25 11:00
DC Protocol for Telemetry ONCE
Abnormal Lab Results
01/15/25
14:51
WBC 4.0 L 10^3/uL
(4.8-10.8)
RBC 3.25 L 10^6/uL
(4.20-5.40)
Hct 34.7 L %
(37.0-47.0)
MCV 106.8 H fL
(81.0-99.0)
MCH 38.5 H pg
(27.0-31.0)
Plt Count 124 L 10^3/uL
(130-400)
MPV 12.9 H fL
(7.4-10.4)
Absolute Lymphs (auto) 0.5 L 10^3/uL
(1.2-3.4)
Lymphocytes % 13.7 L %
(20.5-51.1)
Monocytes % 15.2 H %
(1.7-9.3)
BUN 23 H mg/dl
(7-17)
AST 48 H U/L
(14-36)
01/15/25 14:51
01/15/25 14:51
Vital Signs
Initial and Last Documented VS:
Initial Vital Signs
Temp Pulse Resp BP Pulse Ox
98.0 F 69 16 146/72 98
01/15/25 14:37 01/15/25 14:37 01/15/25 14:37 01/15/25 14:37 01/15/25 14:37
Last Documented Vital Signs
Temp Pulse Resp BP Pulse Ox
97.9 F 74 17 153/61 99
01/15/25 18:41 01/15/25 20:32 01/15/25 20:32 01/15/25 20:32 01/15/25 20:32
<Isac Galindo, DO - Last Filed: 01/15/25 19:55>
Orders/Labs/Results
Orders:
Orders
01/15/25 14:43
Electrocardiogram (*1) Urgent
Reason for Study: Fatigue / Weakness
EKG- Treatment ONCE
01/15/25 14:51
Complete Blood Count/With Diff Urgent
Comprehensive Metabolic Panel Urgent
01/15/25 18:29
0.9% Sodium Chloride 1000 ml [Nss] 1,000 ml IV BOLUS
01/15/25 18:43
COVID-19 Antigen Urgent
Source: Nasal Swab
Influenza A+B Rapid Molecular Urgent
JULITO Source: Nasal Swab
Specimen Description:
01/15/25 19:35
CT Head W/o Iv Contrast Urgent
Comment:
Reason For Exam: weakness, falls
01/15/25 21:36
Admit/Transfer Patient As Directed
Co-Sign Provider:
Level of Care: Observation services
Assign to:: Telemetry
Physician / Group: Silvio
Diagnosis: weakness
Reason for Telemetry: CVA/TIA
Date to Stop Telemetry: 01/18/25
Time to Stop Telemetry: 11:00
PRN Pain Medication Management As Directed
May give lesser potent ordered pain med per pt: Yes
preference::
Protocol:: Medication orders for pain may be administered in a
manner that supports deferring to patient preference
when the pt is:
- Requesting an ordered lesser potent pain medication.
Least to most potent pain medications are defined
as: acetaminophen < NSAID < tramadol < opioids
(morphine, oxycodone, hydromorphone).
- Requesting a lesser dose of the same medication IF
ORDERED.
- Requesting a less intrusive route of administration
if both routes are prescribed by the provider (PO <
IV).
01/15/25 21:37
Code Status As Directed
Resuscitation Status: Do not resuscitate
Reached after discussion with pt or family/Healthcare POA: Yes
DNR Bracelet Application ONCE
01/18/25 11:00
DC Protocol for Telemetry ONCE
Abnormal Lab Results
01/15/25
14:51
WBC 4.0 L 10^3/uL
(4.8-10.8)
RBC 3.25 L 10^6/uL
(4.20-5.40)
Hct 34.7 L %
(37.0-47.0)
MCV 106.8 H fL
(81.0-99.0)
MCH 38.5 H pg
(27.0-31.0)
Plt Count 124 L 10^3/uL
(130-400)
MPV 12.9 H fL
(7.4-10.4)
Absolute Lymphs (auto) 0.5 L 10^3/uL
(1.2-3.4)
Lymphocytes % 13.7 L %
(20.5-51.1)
Monocytes % 15.2 H %
(1.7-9.3)
BUN 23 H mg/dl
(7-17)
AST 48 H U/L
(14-36)
01/15/25 14:51
01/15/25 14:51
Vital Signs
Initial and Last Documented VS:
Initial Vital Signs
Temp Pulse Resp BP Pulse Ox
98.0 F 69 16 146/72 98
01/15/25 14:37 01/15/25 14:37 01/15/25 14:37 01/15/25 14:37 01/15/25 14:37
Last Documented Vital Signs
Temp Pulse Resp BP Pulse Ox
97.9 F 74 17 153/61 99
01/15/25 18:41 01/15/25 20:32 01/15/25 20:32 01/15/25 20:32 01/15/25 20:32
<Clyde Rosen PA-C - Last Filed: 01/15/25 22:18>
MDM/Problems Addressed
Differential Diagnosis Includes:
Viral Syndrome/Covid/Flu
Electrolyte Imbalance
Dehydration
Deconditioning/age-related/social factors
MDM/Problems Addressed:
89-year-old female presenting to the ER for evaluation of multiple concerns that seem to be somewhat nonspecific but ultimately centered around patient's generalized weakness and fatigue. She was admitted back in December for similar and was
transferred to [facility] home for rehab. Labs were initiated on arrival which show a mild leukopenia but otherwise appear to be at patient's baseline. I did add on COVID and flu testing as well as 1 L normal saline. Given patient lives by herself
combined with her age and fall risk I do not feel it is safe for patient to be discharged home nor does she feel comfortable ambulating and was not able to get to the bathroom on her own. Will plan for admission and patient will likely need rehab
and potential more long-term living situation discussed
<Clyde Rosen PA-C - Last Filed: 01/15/25 22:18>
*Radiology
Radiology exam reviewed: radiology read reviewed
*Pulse Oximetry
SaO2: 99
Oxygen Mode of Delivery: Room air
Patient hypoxic: no
*Critical Care Note
Total Time (30-74mins, 75-104mins- exclusive of procedures): Not Applicable
Data Reviewed
Review of Other/Old Records Reveals: Labs, Records and Discharge Summary
<Clyde Rosen PA-C - Last Filed: 01/15/25 22:18>
Patient Management
Discussion with other providers: Hospitalist
Escalation/DeEscalation of care consider admission/obs:
No intracranial pathologies on CT. Given her age combined with living on her own and significant fall risk, patient not safe to be discharged home. Hospitalist team to admit. Will likely need physical therapy and case management involved in her
care.
ED Attending Note
<Clyde Rosen PA-C - Last Filed: 01/15/25 22:18>
-
Portions of this chart may have been created with voice recognition software.� Occasional wrong word or��sound alike� substitutions may have occurred due to the inherent limitations of voice recognition software.
<Isac Galindo DO - Last Filed: 01/15/25 19:55>
ED Attending Note
Patient seen and examined by attending physician: Yes
I performed the substantive portion of visit, reviewed & personally made and approve the management plan that is documented in note by myself or ALON.: Yes
ED Attending Note:
I have seen and evaluated the patient with a [id number] encounter. I have spoken to the advance practicer provider and involved in the medical history, the physical exam, medical decision making.
Evaluation and management service: agree unless noted differently below.
Results interpretation: agree unless noted differently below.
Focused HPI: 89-year-old female presenting with generalized weakness and fatigue. Patient complains of increased falling. She does live alone but states her son can sometimes help her. Patient has required short rehab stay in the past
Physical exam: Weak and fatigued. Abdomen soft nontender. Lungs clear
Medical Decision Making: Given generalized weakness and age and trouble with ADLs, will admit for case management and PT for possible placement
Discharge Plan
Departure
Patient Disposition: Admit
Date of Disposition: 01/15/25
Time of Disposition: 20:26
Presentation/result/management discussed w/ accepting MD/DO: Hospitalist
Discharge Problem:
Generalized weakness, Multiple falls
Interventions
Interventions:
*Risk Screen - Suicide Last Done: 01/15/25 14:37
*General Assessment Last Done: 01/15/25 14:37
*Neglect/Abuse Screening Last Done: 01/15/25 14:37
*ED COVID-19 Vaccine History Last Done: 01/15/25 14:37
*ED Influenza Vaccine History Last Done: 01/15/25 14:37
[facility] Risk Assessment Tool Last Done: 01/15/25 18:41
ED- Neurological Assessment Last Done: 01/15/25 18:52
--- NOTE | 2025-01-15 21:20 | HPS.HSE ---
Family Physician
-
Family Physician: Sravani Pelaez
Chief Complaint
-
Weakness
History of Present Illness
This is a 89-year-old patient with past medical history significant for hypertension, hypothyroid, atrial fibrillation on Xarelto who was brought in by EMS for weakness and unsteadiness on her feet as well as back pain.
Patient was recently admitted to the hospital in December after being found on the floor by visiting nurse. She had prior history of recurrent falls. She was not using a walker at the time and she was dehydrated at that time. She refused previous
discharged to [facility] stating that the nurses were rude to her did not want to take care of her. She was treated for dehydration and DAVID, hypothyroid, and advised on nutrition. Ultimately she was discharged back to home.
Patient does endorse poor appetite. She stated that today she felt that she was leaning towards the left side and is felt like she might fall. In the past when it happens she has had falls and has a history of recurrent falls. She also felt some
'funny' feeling in her frontal area. She denies any blurry vision or double vision. She denies any speech impediment. She denied any nausea, vomiting, diaphoresis, chest pain, palpitations. She specifically denies lightheadedness. She reports
no numbness or tingling. She has not had any fevers or cough. She has chronic incontinence secondary to overactive bladder but denies any other acute symptoms.
In the emergency department patient was afebrile, blood pressure was 150/61 with a pulse rate of 74 and oxygen saturation of 97% on room air. ECG shows atrial fibrillation at a rate of [address] or T wave changes. CT of the head shows no
acute process.
COVID test was negative, flu test was negative. The patient had a CBC with mild leukopenia with a WBC of 4.0 otherwise normal hemoglobin and platelets. Electrolytes BUN/creatinine were all normal. Glucose was normal. Urinalysis is pending
Medical History
Past Medical History
Past Medical History: Reports Arrhythmia (Paroxysmal A-fib), Dementia (Mild cognitive Silva that the patient feels is getting worse), GERD, HTN, Hypercholesterolemia and Hypothyroidism
Additional Past Medical History:
Bilateral lower extremity edema, overactive bladder, bilateral carotid atherosclerosis
Past Surgical History: Reports Bowel Resection, Cardiac (Cardiac ablation), Cholecystectomy, , Orthopedic (Bilateral knee replacement) and Tonsilectomy
Social History
Tobacco: Non-smoker
Alcohol: Former (States she used to drink too much and from age 23 to when she was diagnosed with A-fib a few years ago. She has quit drinking)
Personal:
Living: Alone
Employment: Retired
Family History
Family History: CAD (In father, possibly in mother) and Diabetes (And 3 sisters)
Allergies / Home Medications
Allergies reflects when Allergies were last updated in [employer].
Home Medications with original date entered in [employer]
Allergy/Medication List:
Allergies
Allergy/AdvReac Type Severity Reaction Status Date / Time
spironolactone (From Allergy Syncopy Verified 01/15/25 18:40
Aldactone)
Home Medications
furosemide 20 mg tablet 20 mg PO DAILY Fluid Retention/Swelling 11/13/18
potassium chloride 20 mEq tablet,extended release(part/cryst) 20 meq PO BID Electrolyte Repletion 11/13/18
atorvastatin 10 mg tablet 10 mg PO HS High Cholesterol 03/17/19
acetaminophen 500 mg tablet 1,000 mg PO BID Pain 09/09/22
calcium 600 mg (as carbonate)-vitamin D3 10 mcg (400 unit) tablet (Calcium 600 + D(3)) 2 tab PO DAILY Supplement 09/09/22
multivitamin 1 tab PO DAILY Supplement 09/09/22
metoprolol succinate 50 mg tablet,extended release 24 hr 50 mg PO BID Blood Pressure 09/18/23
rivaroxaban 20 mg tablet (Xarelto) 20 mg PO DAILY Blood Clot Prevention/Tx 09/18/23
rivastigmine 4.6 mg/24 hour transdermal patch 4.6 mg transdermal DAILY Mental Health/Anxiety 11/24/24
levothyroxine 50 mcg tablet 50 mcg PO DAILY @ 0600 Thyroid #30 tabs 12/13/24
Review of Systems
-
Constitutional: Reports No Symptoms
EENT: Reports No Symptoms
Respiratory: Reports No Symptoms
Cardiac: Reports No Symptoms
Abdomen/GI: Reports No Symptoms
: Reports No Symptoms
Musculoskeletal: Reports No Symptoms
Skin: Reports No Symptoms
Neurological: Reports Headache and Weakness
Endocrine: Reports No Symptoms
Hematologic/Lymphatic: Reports No Symptoms
Psych: Reports No Symptoms
Physical Exam
Vital Signs
Vital Signs
Temp Pulse Resp BP Pulse Ox
97.9 F 74 17 153/61 99
01/15/25 18:41 01/15/25 20:32 01/15/25 20:32 01/15/25 20:32 01/15/25 20:32
Physical Exam
General: Well Developed, Well Nourished, No Apparent Distress, Comfortable, Conversant and Poor Appetite; No Appears in Distress or Pain
HEENT: NormoCephalic, Anicteric, PERRLA, No Ptosis, Nose Appears Normal and Ears Appear Normal; No Moist mucous membranes or Oxygen
Respiratory: Clear
Cardiac: S1/S2, Irregular Rhythm and Peripheral Edema
GI: Soft, Non Distended, Normal Bowel Sounds and Tender (Mild tenderness to deep palpation of the right upper quadrant)
Genito-urinary: Other (Pure wick and wearing pad); No Sorensen
Musculoskeletal: Clubbing, No Clubbing, Edema, Left Lower Extremity, Edema, Right Lower Extremity and Other (5/5 strength to hip flexion, elbow flexion and extension, finger flexion, foot flexion and extension bilaterally)
Skin: Warm and Dry
Neuro: Awake and Alert
Psych: Calm
Laboratory Results
-
01/15/25 14:51
01/15/25 14:51
Laboratory Results
Total Bilirubin 1.0 mg/dl (0.2-1.3) 01/15/25 14:51
AST 48 U/L (14-36) H 01/15/25 14:51
ALT 19 U/L (0-35) 01/15/25 14:51
Alkaline Phosphatase 63 U/L (38-126) 01/15/25 14:51
Data Reviewed
-
CT Scan: Report Reviewed by me
Medical Tests (Nuc Med, Echo, EKG etc): Image Personally Visualized and interpreted
Lab Data: Labs Reviewed by me
Old Records: Reviewed
Impression/Plan
-
IMPRESSION:
89-year-old with history of recurrent falls, atrial fibrillation (permanent atrial fibrillation) on Xarelto, hyperlipidemia, hypertension, hypothyroid who was recently reduced on levothyroxine presents to the emergency department with a sensation of
going to fall. She had no specific vertigo. She had no focal logical deficits. On my examination she is alert and oriented x 3 but does have mild cognitive deficit. She has equal strength in the lower and upper extremities. Labs today
unremarkable. She has no evidence for an acute infection. UA is pending. CT of the head shows no acute interval changes.
PLAN:
Ambulatory dysfunction -patient denied vertigo or lightheadedness but did have a sensation of leaning to 1 side which is similar to her prior episodes of falling. She had no focal deficits consistent with this acute stroke. Cannot rule out a TIA
entirely. Patient is currently NIHSS equals 0. No palpitations. ECG with chronic atrial fibrillation at a rate of 65.
� Admit to telemetry observation
� Neurochecks every 6 hours, if there are any changes we will get an MRI in a.m.
� Continue Xarelto
� Check orthostatic vital signs
�Check UA if symptomatic, for right now I will not check UA on unless patient describe specific symptoms
� PT consultation
Atrial fibrillation�chronic atrial fibrillation on Xarelto
� Continue Xarelto
� Continue metoprolol succinate
Hypothyroidism
� Continue levothyroxine 50 mcg
DVT prophylaxis on apixaban
CODE STATUS�DNR
[2025-01-15] MEDS: LIPITOR 10 MG PO (23:34)
[2025-01-16] VITALS (14 sets, daily range): BP systolic 130–187; BP diastolic 63–109; PULSE 74; BMI 26.3
[2025-01-16] MEDS: TYLENOL 1000 MG PO ×3 (01:31→21:11)
[2025-01-16] MEDS: SYNTHROID 50 MCG PO (06:59)
[2025-01-16 07:21] LABS: Hematocrit 33.4 % (37.0-47.0); Hemoglobin 11.9 g/dL (12.0-16.0); Mean Corp Hgb Conc. 35.6 g/dL (33.0-37.0); Mean Corpuscular Volume 104.0 fL (81.0-99.0); Platelet Count 113 10^3/uL (130-400); Red Cell Dist. Width 13.1 % (11.5-14.5)
[2025-01-16 08:37] LABS: Blood Urea Nitrogen 12 mg/dl (7-17); Calcium 8.8 mg/dl (8.4-10.2); Carbon Dioxide 27 mmol/L (22-30); Chloride 103 mmol/L (98-107); Estimated Creatinine Clearance 49 ml/min; Glucose 84 mg/dl (70-99); Magnesium 1.8 mg/dl (1.6-2.3); Potassium 3.5 mmol/L (3.5-5.1); Sodium 136 mmol/L (135-145); eGFR > 60.00
[2025-01-16 08:57] LABS: TSH 17.60 uIU/ml (0.47-4.68)
[2025-01-16] MEDS: LASIX 20 MG PO (09:10)
[2025-01-16] MEDS: KCL 20 MEQ PO (09:10)
[2025-01-16] MEDS: OSCAL 500 + D 1000 MG PO (09:11)
[2025-01-16] MEDS: XARELTO 15 MG PO (09:11)
[2025-01-16] MEDS: EXELON PATCH 4.6 MG TRANSDERM (09:12)
[2025-01-16 09:26] LABS: Iron 158 ug/dl (37-170)
[2025-01-16] MEDS: TOPROL XL 50 MG PO ×2 (09:27→21:12)
[2025-01-16] MEDS: THERAGRAN 1 TABLET PO (09:28)
[2025-01-16 09:36] LABS: Total Iron Binding Capacity 293 ug/dl (265-497)
--- NOTE | 2025-01-16 10:42 | CM ---
Chart reviewed Consult received
GRUBER reviewed
Spoke with patient at ED bedside
Lives alone in an apartment 8th floor with elevator access
Independent
DME rollator shower chair and shower grab bars
Son in [place] helps with shopping at times
1 adult child in [place]
1 adult child 2 hours away
Recently discharged from [facility] last week
PCP Sravani Pelaez
[facility]
was active with [facility]
hx of Patric middle amana in 11/2024
DCP is to go home with services
Pt would rather go home then go to rehab
CM will continue to follow up for any dcp needs
--- NOTE | 2025-01-16 11:04 | W.PN.HOSP.TC ---
Today's Communication/Plan
-
Check Brain Lumbar MRI
Physical Therapy
hold further Lasix, dc potassium supplementation while off Lasix
daily weight
fall precautions
Pysch eval
Assessment / Plan
Assessment / Plan
Physical Exam
General: no acute distress, appears comfortable at this time
HEENT: NormoCephalic, Anicteric, PERRLA,
Respiratory: Clear
Cardiac: S1/S2, Irregular Rhythm and Peripheral Edema
GI: Soft, Non Distended, Normal Bowel Sounds and Tender (Mild tenderness to deep palpation of the right upper quadrant)
Musculoskeletal: Clubbing, No Clubbing, +1 pitting edema lower ext's b/l
Skin: Warm and Dry
Neuro: AOx3 conversant coherent
Psych: Calm Endorses Depression reports past suicidal ideation in the past few weeks denies current HI/SI
IMPRESSION:
89-year-old with history of recurrent falls, atrial fibrillation (permanent atrial fibrillation) on Xarelto, hyperlipidemia, hypertension, hypothyroid, CVA, spinal stenosis s/p laminectomies, presents to the emergency department for evaluation
worsening falls/weakness.
PLAN:
Ambulatory dysfunction -patient denied vertigo or lightheadedness but did have a sensation of leaning to 1 side which is similar to her prior episodes of falling.
� telemetry observation
� Check Brain MRI and Lumbar spine (hx stroke Nov 2024 hx spinal stenosis s/p laminectomy years ago)
� Continue Xarelto
� Check orthostatic vital signs
� PT consultation appreciated SNF rehab
Depression/past suicidal ideation screening pos
-Denies current HI/SI
-Psych eval requested
Atrial fibrillation�chronic atrial fibrillation on Xarelto
� Continue Xarelto
� Continue metoprolol succinate
uncontrol Hypothyroidism
-TSH high T4 low
�levothyroxine increased from 50 to 75 mcg (will recommend skipping Monday dosing given that dose was previously reduced for being too high)
chronic HFpEF
Urinary Incontinence, overactive bladder
follows cardiology Dr Hahn
cont metoprolol
hold further lasix dosing for now, on low dose, consider switching to prn on discharge to ameliorate urinary symptoms
home potassium supplementation discontinued while off lasix
daily weight
DVT prophylaxis Xarelto
CODE STATUS�DNR
Anticipated Discharge: Within 24 hours
Subjective/Interval History
-
Date of Service: January 16, 2025
no acute distress resting comfortably in bed. reports chronic urinary incontinence for years and acute on chronic lower ext weakness. Endorses severe upper leg pain b/l with prolonged standing/walking and frequent falls.
Objective Data
-
Labs:
Laboratory Results
01/16/25 01/16/25
07:02 08:07
WBC 3.4 L
Hgb 11.9 L
Hct 33.4 L
Plt Count 113 L
Sodium Cancelled 136
Potassium Cancelled 3.5
Chloride Cancelled 103
Carbon Dioxide Cancelled 27
BUN Cancelled 12
Creatinine Cancelled 0.7
Glucose Cancelled 84
Calcium Cancelled 8.8
Vital Signs:
Vital Signs
Temp Pulse Resp BP Pulse Ox
97.5 F 67 16 152/109 96
01/16/25 08:01 01/16/25 09:27 01/16/25 08:01 01/16/25 09:27 01/16/25 08:01
I&O
01/15/25 01/16/25 01/17/25
06:59 06:59 06:59
Output Total 1000 / 1000
Balance -1000 / -1000
[2025-01-16 11:49] LABS: Ferritin 167.0 ng/ml (11.1-264.0)
[2025-01-16 12:20] LABS: Folate > 20.0 ng/ml (2.76-20); Vitamin B12 798 pg/ml (239-931)
--- NOTE | 2025-01-16 15:07 | PTCARENOTE ---
pt arrived to [facility] from ED at 1430 in hospital bed. During assessment pt answered yes to feeling down depressed or hopeless with suicidal thoughts but stated 'I would not because im mandaeism', made aware of patients answers and psych consulted.
Patient has no active plan and is not verbalizing intent. VSS, connected to tele monitor #[id number], neurological checks started as ordered. patient able to make needs known, plan of care ongoing.
[2025-01-16] MEDS: LIPITOR 10 MG PO (21:11)
[2025-01-17] VITALS (7 sets, daily range): BP systolic 136–167; BP diastolic 70–101; PULSE 77–89; BMI 26.0
[2025-01-17] MEDS: SYNTHROID 75 MCG PO (05:34)
[2025-01-17 05:57] LABS: Hematocrit 32.8 % (37.0-47.0); Hemoglobin 12.0 g/dL (12.0-16.0); Mean Corp Hgb Conc. 36.6 g/dL (33.0-37.0); Mean Corpuscular Volume 104.5 fL (81.0-99.0); Platelet Count 114 10^3/uL (130-400); Red Cell Dist. Width 13.1 % (11.5-14.5)
[2025-01-17 06:15] LABS: Blood Urea Nitrogen 11 mg/dl (7-17); Calcium 9.2 mg/dl (8.4-10.2); Carbon Dioxide 26 mmol/L (22-30); Chloride 104 mmol/L (98-107); Estimated Creatinine Clearance 56 ml/min; Glucose 89 mg/dl (70-99); Magnesium 1.8 mg/dl (1.6-2.3); Potassium 3.6 mmol/L (3.5-5.1); Sodium 135 mmol/L (135-145); eGFR > 60.00
--- NOTE | 2025-01-17 07:27 | W.PN.HOSP.TC ---
Today's Communication/Plan
-
PT/OT
Fall Precautions
Brain Lumbar MRI
monitor off Lasix
Assessment / Plan
Assessment / Plan
Physical Exam
General: no acute distress, appears comfortable at this time
HEENT: NormoCephalic, Anicteric, PERRLA,
Respiratory: Clear
Cardiac: S1/S2, Irregular Rhythm and Peripheral Edema
GI: Soft, Non Distended, Normal Bowel Sounds and Tender (Mild tenderness to deep palpation of the right upper quadrant)
Musculoskeletal: Clubbing, No Clubbing, +1 pitting edema lower ext's b/l
Skin: Warm and Dry
Neuro: AOx3 conversant coherent
Psych: Calm Endorses Depression reports past suicidal ideation in the past few weeks denies current HI/SI
IMPRESSION:
89-year-old with history of recurrent falls, atrial fibrillation (permanent atrial fibrillation) on Xarelto, hyperlipidemia, hypertension, hypothyroid, CVA, spinal stenosis s/p laminectomies, presents to the emergency department for evaluation
worsening falls/weakness.
PLAN:
Ambulatory dysfunction -patient denied vertigo or lightheadedness but did have a sensation of leaning to 1 side which is similar to her prior episodes of falling.
� telemetry observation
� Check Brain MRI and Lumbar spine (hx stroke Nov 2024 hx spinal stenosis s/p laminectomy years ago)
� Continue Xarelto
� Check orthostatic vital signs
� PT consultation appreciated SNF rehab
Depression/past suicidal ideation screening pos
-Denies current HI/SI
-Psych eval appreciated adjustment d/o w/ depression, antidepressant not indicated at this time
Atrial fibrillation�chronic atrial fibrillation on Xarelto
� Continue Xarelto
� Continue metoprolol succinate
uncontrol Hypothyroidism
-TSH high T4 low
�levothyroxine increased from 50 to 75 mcg (on discharge will recommend skipping Monday dosing given that dose was previously reduced for being too high)
chronic HFpEF
Urinary Incontinence, overactive bladder
follows cardiology Dr Hahn
cont metoprolol
hold further lasix dosing for now, on low dose, consider switching to prn on discharge to ameliorate urinary frequency symptoms
home potassium supplementation reduced to Daily from BID while off lasix
daily weight
DVT prophylaxis Xarelto
CODE STATUS�DNR
Discussed with patient and patient's son Avel
I spent a total of 45 minutes with the patient or on the floor. More than 50% of this time involved counseling and coordination of care.
Anticipated Discharge: 24 - 48 hours
Subjective/Interval History
-
Date of Service: January 17, 2025
no acute distress, resting comfortably in bed, reports improvement in urinary frequency since hold on Lasix.
Objective Data
-
Labs:
Laboratory Results
01/17/25
05:28
WBC 3.6 L
Hgb 12.0
Hct 32.8 L
Plt Count 114 L
Sodium 135
Potassium 3.6
Chloride 104
Carbon Dioxide 26
BUN 11
Creatinine 0.6
Glucose 89
Calcium 9.2
Vital Signs:
Vital Signs
Temp Pulse Resp BP Pulse Ox
97.5 F 74 16 155/95 98
01/17/25 03:19 01/17/25 03:19 01/17/25 03:19 01/17/25 03:19 01/17/25 03:19
I&O
01/16/25 01/17/25 01/18/25
06:59 06:59 06:59
Intake Total 240 / 240
Output Total 1000 / 1000 600 / 600
Balance -1000 / -1000 -360 / -360
[2025-01-17] MEDS: EXELON PATCH 4.6 MG TRANSDERM (09:02)
[2025-01-17] MEDS: TYLENOL 1000 MG PO ×2 (09:03→20:57)
[2025-01-17] MEDS: KCL 20 MEQ PO (09:03)
[2025-01-17] MEDS: XARELTO 15 MG PO (09:03)
[2025-01-17] MEDS: THERAGRAN 1 TABLET PO (09:03)
[2025-01-17] MEDS: OSCAL 500 + D 1000 MG PO (09:03)
[2025-01-17] MEDS: TOPROL XL 50 MG PO ×2 (09:04→20:58)
--- NOTE | 2025-01-17 16:29 | CM ---
Addendum entered by Juliet Luther 01/18/25 15:14:
Referral was placed with [facility] for [facility] and accepted
Addendum entered by Jenny Mooney 01/17/25 16:33:
CM reached out to Sharmaine Hernandez regarding resumption of [facility]; per Sharmaine pt is not current with [facility]. Pt was recently at [facility] for SNF, now requesting resumption of [facility].
Original Note:
CM following for discharge plans. CM met with Yin who would like to go home with resumption of [facility]. TT to Sharmaine Hernandez to make her aware of probable discharge home in the next 24-48 hours.
Plan: Discharge to home with resumption of [facility]
--- NOTE | 2025-01-17 19:47 | CS.PSYCHR ---
Consult Summary - Psychiatry
-
pt seen by me in consultation due to concern about suicidal screen
89 yo woman known to me from admission and psychiatric assessment last month. Has been in [facility], lives alone, with need for some assistance in her home. Had been falling last month, was discharged to SNF but did not like it there.
Now back at home and was feeling week so called EMS
On suicide screen pt mentioned thoughts of not wanting to be alive, so assessment ordered.
Pt clearly states she would never kill herself, that she is a good Orthodox and that it would be a sin. Also mentions that she is a bit afraid of dying, so she will just take what comes. Has some sadness abouit many things in her life (estrangement
from two of her children, of ) but enjoys many things she can still do.
Medical history significant for hypothyroidism, a fib on anticoagulation, CVA, HTN, back pain
On exam pt is pleasant, conversant, remembers me well from previous meeting. Oriented x 3, able to give coherent history. Affect reactive through full range, complains of poor memory but able to recall esoteric aspects of prayers (which I am
familiar with) No signs of psychosis, some irritability (complains bitterly about the quality of care at [facility].)
Impression: Adjustment disorder with depression
Not at any acute risk of suicide.
No indication for antidepressants at present
[2025-01-17] MEDS: LIPITOR 10 MG PO (21:01)
[2025-01-18] VITALS (8 sets, daily range): BP systolic 108–169; BP diastolic 54–88; PULSE 73; BMI 26.2
[2025-01-18] MEDS: SYNTHROID 75 MCG PO (05:16)
--- NOTE | 2025-01-18 07:46 | W.PN.HOSP.TC ---
Today's Communication/Plan
-
neuro checks, NIH
PT/OT
Neuro Eval
Assessment / Plan
Assessment / Plan
Physical Exam
General: no acute distress, appears comfortable at this time
HEENT: NormoCephalic, Anicteric, PERRLA,
Respiratory: Clear
Cardiac: S1/S2, Irregular Rhythm and Peripheral Edema
GI: Soft, Non Distended, Normal Bowel Sounds and Tender (Mild tenderness to deep palpation of the right upper quadrant)
Musculoskeletal: Clubbing, No Clubbing, +1 pitting edema lower ext's b/l
Skin: Warm and Dry
Neuro: AOx3 conversant coherent
Psych: Calm Endorses Depression reports past suicidal ideation in the past few weeks denies current HI/SI
IMPRESSION:
89F with history of recurrent falls, permanent atrial fibrillation on Xarelto, hyperlipidemia, hypertension, hypothyroid, CVA, spinal stenosis s/p laminectomies, presents to the emergency department for evaluation worsening falls/weakness.
PLAN:
Ambulatory dysfunction -patient denied vertigo or lightheadedness but did have a sensation of leaning to 1 side which is similar to her prior episodes of falling.
hx stroke Nov 2024 hx spinal stenosis s/p laminectomy years ago
� telemetry observation
� Brain MRI appreciated new stroke 5.7 cm right lateral ventricle, MRI Lumbar spine noted severe spinal stenosis but no significant change from prior MRI sep 2023- as per discussion w/ Radiology
-neurochecks, NIH, Neuro eval requested
� Continue Xarelto
� orthostatic vitals neg
� PT/OT initial recc SNF rehab updated to w/ improvement in ambulatory function
Depression/past suicidal ideation screening pos
-Denies current HI/SI
-Psych eval appreciated adjustment d/o w/ depression, antidepressant not indicated at this time
Atrial fibrillation�chronic atrial fibrillation on Xarelto
� Continue Xarelto
� Continue metoprolol succinate
uncontrol Hypothyroidism
-TSH high T4 low
�levothyroxine increased from 50 to 75 mcg (on discharge will recommend skipping Monday dosing given that dose was previously reduced for being too high)
chronic HFpEF
Urinary Incontinence, overactive bladder
follows cardiology Dr Hahn
cont metoprolol
hold further lasix dosing for now, on low dose, consider switching to prn on discharge to ameliorate urinary frequency symptoms
home potassium supplementation discontinued while off Lasix
daily weight
DVT prophylaxis Xarelto
CODE STATUS�DNR
Discussed with patient. Patient's son Avel called, no answer received, brief message with update (including dx stroke) left with call back number.
I spent a total of 45 minutes with the patient or on the floor. More than 50% of this time involved counseling and coordination of care.
Anticipated Discharge: 24 - 48 hours
Subjective/Interval History
-
Date of Service: January 18, 2025
No acute distress, overall reports feeling well, resting comfortably in bed.
Objective Data
-
Labs:
Laboratory Results
01/18/25
06:00
WBC Pending
Hgb Pending
Hct Pending
Plt Count Pending
Sodium Pending
Potassium Pending
Chloride Pending
Carbon Dioxide Pending
BUN Pending
Creatinine Pending
Glucose Pending
Calcium Pending
Vital Signs:
Vital Signs
Temp Pulse Resp BP Pulse Ox
97.4 F 77 16 139/80 96
01/18/25 03:26 01/18/25 03:26 01/18/25 03:26 01/18/25 03:26 01/18/25 03:26
I&O
01/17/25 01/18/25 01/19/25
06:59 06:59 06:59
Intake Total 240 / 240 900 / 900
Output Total 600 / 600
Balance -360 / -360 900 / 900
[2025-01-18 08:43] LABS: Hematocrit 36.1 % (37.0-47.0); Hemoglobin 12.6 g/dL (12.0-16.0); Mean Corp Hgb Conc. 34.9 g/dL (33.0-37.0); Mean Corpuscular Volume 105.6 fL (81.0-99.0); Platelet Count 121 10^3/uL (130-400); Red Cell Dist. Width 13.4 % (11.5-14.5)
[2025-01-18] MEDS: OSCAL 500 + D 1000 MG PO (08:56)
[2025-01-18] MEDS: TYLENOL 1000 MG PO ×2 (08:56→21:19)
[2025-01-18] MEDS: TOPROL XL 50 MG PO ×2 (08:56→21:19)
[2025-01-18] MEDS: KCL 20 MEQ PO (08:56)
[2025-01-18] MEDS: XARELTO 15 MG PO (08:56)
[2025-01-18] MEDS: THERAGRAN 1 TABLET PO (08:57)
[2025-01-18] MEDS: EXELON PATCH 4.6 MG TRANSDERM (08:57)
[2025-01-18 09:20] LABS: Blood Urea Nitrogen 12 mg/dl (7-17); Calcium 9.5 mg/dl (8.4-10.2); Carbon Dioxide 27 mmol/L (22-30); Chloride 104 mmol/L (98-107); Estimated Creatinine Clearance 48 ml/min; Glucose 89 mg/dl (70-99); Magnesium 1.8 mg/dl (1.6-2.3); Potassium 4.3 mmol/L (3.5-5.1); Sodium 136 mmol/L (135-145); eGFR > 60.00
--- NOTE | 2025-01-18 11:51 | W.PN.UPDATE ---
Update Note
Progress Note Update
reviewed chart spoke with nursing. patient off unit. i did come twice to see her today. still at [facility]. nursing tells me she is cooperative. plan is for her to go home with services. i did confer with dr wyman who does not feel she is a suicide
risk (nor does nursing . patient has spoke of her mormon beliefs to [facility] and dr wyman). if she is here tomorrow will touch base w her.
--- NOTE | 2025-01-18 16:34 | CON.NEURO ---
Neuro Assessment/Plan
Assessment
# acute stroke
CARMENZA is on the day of presenation on 01/16/25. She reports adherence to xarelto but may miss a dose or two. TNK not given because stroke discovered outside of TNK window. not a thrombectomy candidate with minimal deificts on exam. Can consider
changing xarelto to eliquis for BID dosing to provide greater coverage during the day. The mechanism of her stroke is possibly carbioembolic given her history of afib. CTA head and neck need to be done to assess for atheroembolic cause of stroke.
She will need LDL and HgbA1c levels drawn. She will also need a TTE and PT/OT.
Plan
- CTA head and neck
- Lipid panel & HgbA1c
- TTE
- PT/OT
- continue xarelto for now for secondary stroke prevention. determine if eliquis would be covered by insurance.
Consultation
Order
Date of Consultation: 01/18/25
Requesting Provider:
Reason for Consult:
Subjective/Objective
Subjective Data
Date of Service: January 18, 2025
Ms. Haney is a poor historian. History is obtained both from Ms. Haney and from the chart.
HPI: Ms. Haney is an 89 y.o. female w/ a PMH of HTN, Hypothyroidism, afib on xarelto and MCI who was brought in by EMS for weakness and unsteadiness. She has a history of recurrent falls. She tends to fall more to the left side. She has felt
unsteady for months, but it was worse now. She was recently admitted in December after being found on the floor by a visiting nurse. On the day of admission, she felt that her unsteadiness was worse. No dizziness or focal weakness or numbness. MRI
head was significant for a small acute stroke adjacent to the right lateral ventricle. She says she is reliable at taking her medication, but she occasionally misses a dose.
PMH: as above
PSH: Bowel Resection, Cardiac (Cardiac ablation), Cholecystectomy, , Orthopedic (Bilateral knee replacement) and Tonsilectomy
FH: No FH of strokes
Allergies: per chart
Home meds: Per chart
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
Objective Data
Vital Signs
Temp Pulse Resp BP Pulse Ox
36.6 C 71 16 149/74 99
01/18/25 15:00 01/18/25 15:00 01/18/25 15:00 01/18/25 15:00 01/18/25 15:00
Lab Results
01/18/25 08:24
01/18/25 08:24
Sodium 136 mmol/L (135-145) 01/18/25 08:24
Potassium 4.3 mmol/L (3.5-5.1) 01/18/25 08:24
BUN 12 mg/dl (7-17) 01/18/25 08:24
Glucose 89 mg/dl (70-99) 01/18/25 08:24
Calcium 9.5 mg/dl (8.4-10.2) 01/18/25 08:24
Phosphorus 3.8 mg/dl (2.5-4.5) 01/18/25 08:24
Vitamin B12 798 pg/ml (239-931) 01/16/25 08:07
Patient Allergies
cephalexin (From Keflex) Allergy (Verified 01/15/25 22:43)
PERINEAL REDNESS AND RASH
spironolactone (From Aldactone) Allergy (Verified 01/15/25 18:40)
Syncopy
Physical Exam
-
General: Well Developed, Well Nourished and No Apparent Distress
Eyes: PERRLA
HEENT: Normocephalic and Atraumatic
Respiratory: Clear to Auscultation
Cardiac: Regular Rhythm
GI: Normal Bowel Sounds
Skin: Unremarkable
Psych: Unremarkable
Extended Neurological Exam
Mood & Affect: Mood Unremarkable and Affect Unremarkable
Attention Span & Concentration: Awake, Alert, Interactive and Mild Difficulty with 2 Step Request
Memory: Reduced (Recalled 0/3 on delayed recall)
Tremor: Hand Tremor Absent
Involuntary Movement: None
Speech: Quality Unremarkable, Quantity Unremarkable and Rate of Production Unremarkable
Cranial Nerve II: Left Eye: Pupillary Reactivity Unremarkable and Visual Mcgill Intact
Cranial Nerve II: Right Eye: Pupillary Reactivity Unremarkable and Visual Mcgill Intact
Cranial Nerves III, IV, : Extraocular Movement: Extraocular Movement Full in all Directions and No Ptosis
Cranial Nerve V: Facial Sensation: Intact to Light Touch
Cranial Nerve VII: Facial Symmetry: Normal Facial Symmetry
Cranial Nerve VIII: Hearing: Unremarkable Hearing to Normal Conversational Volume
Cranial Nerves IX, X: Palate Movement: Palate Elevation Symmetric
Cranial Nerve XI: Shoulder Shrug: Unremarkable
Cranial Nerve XII: Tongue Protusion: Midline
Muscle Strength, Overall: Full Throughout
Muscle Bulk & Tone: Bulk Unremarkable and Tone Unremarkable
Pronator Drift: No Drift in Upper Extremities
Deep Tendon Reflexes: Unremarkable Throughout
Coordination: Vnehwx-rzak-adiibs Testing Unremarkable
Gait & Station: Other (tended to circumduct her left leg)
Data Reviewed
-
MRI Head: Image Reviewed (acute stroke adjacent to right lateral ventricle)
Medications
-
Active Medications
Generic Name Dose Route Start Last Admin
Trade Name Freq PRN Reason Stop Dose Admin
Acetaminophen 1,000 mg 01/16/25 08:00 01/18/25 08:56
Acetaminophen 500 Mg Tablet PO 02/13/25 07:59 1,000 mg
BID ART Administration
Atorvastatin Calcium 10 mg 01/15/25 22:40 01/17/25 21:01
Atorvastatin (Lipitor) 10 Mg Tablet PO 02/12/25 22:39 10 mg
HS ART Administration
Bisacodyl 10 mg 01/15/25 22:40
Bisacodyl 10 Mg Rectal Suppository RECTAL 02/12/25 22:39
[id number] PRN
constipation
Calcium/Vitamin D 1,000 mg 01/16/25 08:00 01/18/25 08:56
Calcium Carbonate 500 Mg/Vitamin D 5 Mcg (200 Units) Tablet PO 02/13/25 07:59 1,000 mg
DAILY ART Administration
Levothyroxine Sodium 75 mcg 01/17/25 06:00 01/18/25 05:16
Levothyroxine 75 Mcg Tablet PO 02/14/25 05:59 75 mcg
DAILY @ 0600 ART Administration
Metoprolol Succinate 50 mg 01/16/25 08:00 01/18/25 08:56
Metoprolol 50 Mg Extended Release Tablet PO 02/13/25 07:59 50 mg
BID ART Administration
Multivitamins Therapeutic 1 tablet 01/16/25 08:00 01/18/25 08:57
Multivitamin Tablet PO 02/13/25 07:59 1 tablet
DAILY ART Administration
Polyethylene Glycol 17 grams 01/15/25 22:40
Polyethylene Glycol Powder 17 Grams Packet PO 02/12/25 22:39
DAILYPRN PRN
constipation
Rivaroxaban 15 mg 01/16/25 08:00 01/18/25 08:56
Rivaroxaban 15 Mg Tablet PO 02/13/25 07:59 15 mg
DAILY ART Administration
Rivastigmine 4.6 mg 01/16/25 08:00 01/18/25 08:57
Rivastigmine (Exelon) 4.6 Mg Patch TRANSDERM 02/13/25 07:59 4.6 mg
DAILY ART Administration
Senna/Docusate Sodium 1 tablet 01/15/25 22:40
Docusate W/Senna (Iesha-Colace) Tablet PO 02/12/25 22:39
BIDPRN PRN
constipation
Sodium Chloride 0 flush 01/15/25 23:00
Sodium Chloride 0.9% (Flush) Syringe IV 02/12/25 22:59
PER PROTOCOL ART
Home Medications
�Medication �Instructions �Recorded
furosemide 20 mg tablet 20 mg PO DAILY Fluid 11/13/18
Retention/Swelling
potassium chloride 20 mEq 20 meq PO BID Electrolyte Repletion 11/13/18
tablet,extended release(part/cryst)
atorvastatin 10 mg tablet 10 mg PO HS High Cholesterol 03/17/19
acetaminophen 500 mg tablet 1,000 mg PO BID Pain 09/09/22
calcium 600 mg (as 2 tab PO DAILY Supplement 09/09/22
carbonate)-vitamin D3 10 mcg (400
unit) tablet (Calcium 600 + D(3))
metoprolol succinate 50 mg 50 mg PO BID Blood Pressure 09/18/23
tablet,extended release 24 hr
rivaroxaban 20 mg tablet (Xarelto) 20 mg PO DAILY Blood Clot 09/18/23
Prevention/Tx
rivastigmine 4.6 mg/24 hour 4.6 mg transdermal DAILY Mental 11/24/24
transdermal patch Health/Anxiety
levothyroxine 50 mcg tablet 50 mcg PO DAILY @ 0600 Thyroid #30 12/13/24
tabs
therapeutic multivitamin 1 tab PO DAILY 01/16/25
[2025-01-18] MEDS: LIPITOR 10 MG PO (21:21)
[2025-01-19 03:46] VITALS: BP 134/81
[2025-01-19 05:22] VITALS: BMI 26.0
[2025-01-19] MEDS: SYNTHROID 75 MCG PO (05:22)
[2025-01-19 06:17] LABS: Hematocrit 36.5 % (37.0-47.0); Hemoglobin 12.4 g/dL (12.0-16.0); Mean Corp Hgb Conc. 34.0 g/dL (33.0-37.0); Mean Corpuscular Volume 105.8 fL (81.0-99.0); Platelet Count 121 10^3/uL (130-400); Red Cell Dist. Width 13.3 % (11.5-14.5)
[2025-01-19 06:49] LABS: Blood Urea Nitrogen 13 mg/dl (7-17); Calcium 9.2 mg/dl (8.4-10.2); Carbon Dioxide 27 mmol/L (22-30); Chloride 104 mmol/L (98-107); Estimated Creatinine Clearance 48 ml/min; Glucose 89 mg/dl (70-99); HDL Cholesterol 51 mg/dl; LDL Cholesterol, Calculated 74 mg/dl; Magnesium 1.8 mg/dl (1.6-2.3); Potassium 4.2 mmol/L (3.5-5.1); Sodium 136 mmol/L (135-145); Very Low Density Lipoprotein 16 mg/dl (0-30); eGFR > 60.00
[2025-01-19 07:05] VITALS: BP 155/75
--- NOTE | 2025-01-19 07:18 | W.PN.HOSP.TC ---
Today's Communication/Plan
-
Carotid Duplex
Vascular Eval
ST/PT/OT
safe discharge planning
Assessment / Plan
Assessment / Plan
Physical Exam
General: no acute distress, appears comfortable at this time
HEENT: NormoCephalic, Anicteric, PERRLA,
Respiratory: Clear
Cardiac: S1/S2, Irregular Rhythm and Peripheral Edema
GI: Soft, Non Distended, Normal Bowel Sounds and Tender (Mild tenderness to deep palpation of the right upper quadrant)
Musculoskeletal: Clubbing, No Clubbing, +1 pitting edema lower ext's b/l
Skin: Warm and Dry
Neuro: AOx3 conversant coherent
Psych: Calm Endorses Depression reports past suicidal ideation in the past few weeks denies current HI/SI
IMPRESSION:
89F with history of recurrent falls, permanent atrial fibrillation on Xarelto, hyperlipidemia, hypertension, hypothyroid, CVA, spinal stenosis s/p laminectomies, presents to the emergency department for evaluation worsening falls/weakness.
PLAN:
Ambulatory dysfunction -patient denied vertigo or lightheadedness but did have a sensation of leaning to 1 side which is similar to her prior episodes of falling.
hx stroke Nov 2024 hx spinal stenosis s/p laminectomy years ago
� telemetry observation
� Brain MRI appreciated new stroke 5.7 cm right lateral ventricle, MRI Lumbar spine noted severe spinal stenosis but no significant change from prior MRI sep 2023- as per discussion w/ Radiology
-neurochecks, [facility], Neuro eval appreciated ECHO already done Nov 2024 (EF 60-65% mod severe TR)
-A1c wnl, Lipid panel noted LDL 74 (very close to goal<70) given advanced age (>75) atorvastatin increased from 10 mg HS to 20 mg.
-CTA Head/neck noted Greater than 70% distal left common carotid and proximal left internal carotid artery stenosis, Vascular eval requested
-Carotid Duplex
� Continue Xarelto
� orthostatic vitals neg
� PT/OT initial recc SNF rehab updated to w/ improvement in ambulatory function, ST however notes significant cognitive concerns MOCA 16
Depression/past suicidal ideation screening pos
-Denies current HI/SI
-Psych eval appreciated adjustment d/o w/ depression, antidepressant not indicated at this time
Atrial fibrillation�chronic atrial fibrillation on Xarelto
� Continue Xarelto, appreciate case mgmt Joanna priced at 141.56/month, overarching concern however is if patient has been taking her medications correctly to begin with
� Continue metoprolol succinate
uncontrol Hypothyroidism
-TSH high T4 low
�levothyroxine increased from 50 to 75 mcg (on discharge will recommend skipping Monday dosing given that dose was previously reduced for being too high)
chronic HFpEF
Urinary Incontinence, overactive bladder
follows cardiology Dr Hahn
cont metoprolol
hold further lasix dosing for now, on low dose, consider switching to prn on discharge to ameliorate urinary frequency symptoms vs MWF dosing (especially given cognitive concerns)
home potassium supplementation discontinued while off Lasix
daily weight
DVT prophylaxis Xarelto
CODE STATUS�DNR
Discussed with patient and patient's son Chidi
I spent a total of 45 minutes with the patient or on the floor. More than 50% of this time involved counseling and coordination of care.
Anticipated Discharge: 24 - 48 hours
Subjective/Interval History
-
Date of Service: January 19, 2025
no acute distress, resting comfortably in bed, overall reports feeling well.
Objective Data
-
Labs:
Laboratory Results
01/19/25
06:04
WBC 3.6 L
Hgb 12.4
Hct 36.5 L
Plt Count 121 L
Sodium 136
Potassium 4.2
Chloride 104
Carbon Dioxide 27
BUN 13
Creatinine 0.7
Glucose 89
Calcium 9.2
Vital Signs:
Vital Signs
Temp Pulse Resp BP Pulse Ox
97.6 F 73 16 134/81 99
01/19/25 03:46 01/19/25 03:46 01/19/25 03:46 01/19/25 03:46 01/19/25 03:46
I&O
01/18/25 01/19/25 01/20/25
06:59 06:59 06:59
Intake Total 900 / 900 480 / 480
Balance 900 / 900 480 / 480
[2025-01-19] MEDS: TYLENOL 1000 MG PO ×2 (08:46→20:26)
[2025-01-19] MEDS: THERAGRAN 1 TABLET PO (08:46)
[2025-01-19] MEDS: XARELTO 15 MG PO (08:46)
[2025-01-19] MEDS: OSCAL 500 + D 1000 MG PO (08:46)
[2025-01-19] MEDS: EXELON PATCH 4.6 MG TRANSDERM (08:47)
[2025-01-19] MEDS: TOPROL XL 50 MG PO ×2 (08:47→20:26)
[2025-01-19 11:13] VITALS: BP 143/72
[2025-01-19 11:42] LABS: Glycohemoglobin (HgbA1c) 5.8 % (4.0-5.9)
--- NOTE | 2025-01-19 12:11 | W.PN.UPDATE ---
Update Note
Progress Note Update
patient seen chart reviewed. spoke with nursing. mri shows small acute infarct adjacent to a chronic infarct. patient was aware of a finding 'in my brain'. she was very pleasant and rather talkative . admitted she did feel bettter compared to day
of admit. she is not having si which is why psych was consulted. she was wearing a rosary around her neck and feels her david is a comfort to her. had attempted to see her yesterday to double check re issue of depression but she was at mri.
agree with dr wyman that patient is not a suicide risk and that she does not need antidepressants at this point. psych is signing off.
--- NOTE | 2025-01-19 13:05 | PTOTSP ---
Addendum entered and electronically signed by ST Leatha 01/19/25 13:07:
MOCA (01/19/2025*) =
Original Note:
Addendum entered and electronically signed by ST Leatha 01/19/25 13:06:
MOCA (01/20/2024) =
Original Note:
ST Acute Care Evaluation
Pt was presented with clinical signs a functional oropharyngeal and esophageal swallow. No overt s/s of penetration or aspiration noted at bedside with the consistencies trialed at bedside. Cannot rule out silent aspiration at bedside. No skilled
dysphagia services deemed warranted at this time.
Pt currently presents with clinical signs of a moderate cognitive linguistic impairment characterized by mild deficits in linguistic organization and anomia resulting in slower than average verbal production with occasional missing content that
makes it somewhat difficult to follow pt's communication as a listener, as well as moderate deficits in working memory, divided/split attention, short term recall, and orientation with poor judgement/insight into how these skills are imperative for
certain ADLs (e.g. managing medications, finances, cooking) and how deficits could negatively impact pt's safety, health, and wellness, despite education attempted/provided by [facility]IE[facility]ERSON.
Recommendations:
- Continue with regular solids, thin liquids, meds as tolerated with general aspiration precautions.
- Continue with cognitive linguistic eval/tx while pt is admitted.
- Continue with RELIE[facility]ERSON services upon discharge at next level of care (HH vs SNF).
- Consider higher level of care upon discharge: either contact [facility] regarding possibility of increased involvement (finances?), daily HH/VN (meds, meals), or consider different SNF.
[2025-01-19 15:03] VITALS: BP 145/69
[2025-01-19 16:26] VITALS: BMI 26.0
[2025-01-19 20:16] VITALS: BP 139/65
[2025-01-19] MEDS: LIPITOR 10 MG PO (21:40)
[2025-01-19 23:09] VITALS: BP 155/84
[2025-01-20 03:40] VITALS: BP 145/70
[2025-01-20 05:57] LABS: Hematocrit 32.4 % (37.0-47.0); Hemoglobin 11.8 g/dL (12.0-16.0); Mean Corp Hgb Conc. 36.4 g/dL (33.0-37.0); Mean Corpuscular Volume 106.2 fL (81.0-99.0); Platelet Count 112 10^3/uL (130-400); Red Cell Dist. Width 13.3 % (11.5-14.5)
[2025-01-20 06:00] VITALS: BMI 26.0
[2025-01-20 06:15] LABS: Blood Urea Nitrogen 12 mg/dl (7-17); Calcium 9.3 mg/dl (8.4-10.2); Carbon Dioxide 25 mmol/L (22-30); Chloride 106 mmol/L (98-107); Estimated Creatinine Clearance 48 ml/min; Glucose 91 mg/dl (70-99); Magnesium 1.8 mg/dl (1.6-2.3); Potassium 3.8 mmol/L (3.5-5.1); Sodium 136 mmol/L (135-145); eGFR > 60.00
[2025-01-20] MEDS: SYNTHROID 75 MCG PO (06:35)
[2025-01-20 07:34] VITALS: BP 171/80
--- NOTE | 2025-01-20 08:29 | W.PN.NEURO.1 ---
Today's Communication / Plan
-
Augment atorvastatin from 10 mg taken from home list to dosing of 80 mg due to LDL greater than 70 and recurrent stroke
Goal of normotension
Goal of normoglycemia
- PT/OT
- continue xarelto for now for secondary stroke prevention, if recurrent event, consider change to alternative anticoagulation therapy
Neuro Assessment/Plan
Assessment
# acute stroke
CARMENZA is on the day of presentation on 01/16/25. She reports adherence to xarelto but may miss a dose or two. TNK not given because stroke discovered outside of TNK window. not a thrombectomy candidate with minimal deificts on exam.
The mechanism of her stroke is possibly cardioembolic given her history of afib.
Plan
Augment atorvastatin from 10 mg taken from home list to dosing of 80 mg due to LDL greater than 70 and recurrent stroke
Goal of normotension
Goal of normoglycemia
- PT/OT
- continue xarelto for now for secondary stroke prevention, if recurrent event, consider change to alternative anticoagulation therapy
Will follow as needed
Subjective/Objective
Subjective Data
Date of Service: January 20, 2025
Objective Data
Vital Signs
Temp Pulse Resp BP Pulse Ox
36.6 C 72 18 171/80 97
01/20/25 07:34 01/20/25 07:34 01/20/25 07:34 01/20/25 07:34 01/20/25 07:34
Lab Results
01/20/25 05:19
01/20/25 05:19
Sodium 136 mmol/L (135-145) 01/20/25 05:19
Potassium 3.8 mmol/L (3.5-5.1) 01/20/25 05:19
BUN 12 mg/dl (7-17) 01/20/25 05:19
Glucose 91 mg/dl (70-99) 01/20/25 05:19
Calcium 9.3 mg/dl (8.4-10.2) 01/20/25 05:19
Phosphorus 3.7 mg/dl (2.5-4.5) 01/20/25 05:19
LDL Cholesterol, Calc 74 mg/dl 01/19/25 06:04
Vitamin B12 798 pg/ml (608-671) 01/16/25 08:07
Patient Allergies
cephalexin (From Keflex) Allergy (Verified 01/15/25 22:43)
PERINEAL REDNESS AND RASH
spironolactone (From Aldactone) Allergy (Verified 01/15/25 18:40)
Syncopy
Data Reviewed
-
CT-A: Report Reviewed
Carotid Ultrasound: Report Reviewed
Labs: Report Reviewed
Lipid Profile: Report Reviewed
Reviewed with: Physician and Nurse Practioner
Old Records: Summarized
Past History
Past History
ED Past Medical History: Arrthythmia (Atrial fib), CVA, HTN, Hypercholesterolemia and Other (Orthostatic hypotension)
ED Past Surgical History: Bowel resection, Cardiac (cardioversion), Cholecystectomy and Orthopedic (Jaswinder knee replacements)
Social History
Tobacco: Non-smoker
Alcohol: Occasional
Drug: None
Personal:
Living: alone
Employment: Retired
Family History
Family History: Other (Reviewed and Noncontributory)
Medications
-
Medications:
Generic Name Dose Route Start Last Admin
Trade Name Freq PRN Reason Stop Dose Admin
Acetaminophen 1,000 mg 01/16/25 08:00 01/20/25 09:43
Acetaminophen 500 Mg Tablet PO 02/13/25 07:59 1,000 mg
BID ART Administration
Atorvastatin Calcium 80 mg 01/20/25 22:00
Atorvastatin (Lipitor) 80 Mg Tablet PO 02/17/25 21:59
HS ART
Bisacodyl 10 mg 01/15/25 22:40
Bisacodyl 10 Mg Rectal Suppository RECTAL 02/12/25 22:39
[id number] PRN
constipation
Calcium/Vitamin D 1,000 mg 01/16/25 08:00 01/20/25 09:43
Calcium Carbonate 500 Mg/Vitamin D 5 Mcg (200 Units) Tablet PO 02/13/25 07:59 1,000 mg
DAILY ART Administration
Levothyroxine Sodium 75 mcg 01/17/25 06:00 01/20/25 06:35
Levothyroxine 75 Mcg Tablet PO 02/14/25 05:59 75 mcg
DAILY @ 0600 ART Administration
Metoprolol Succinate 50 mg 01/16/25 08:00 01/20/25 09:43
Metoprolol 50 Mg Extended Release Tablet PO 02/13/25 07:59 50 mg
BID ART Administration
Polyethylene Glycol 17 grams 01/15/25 22:40
Polyethylene Glycol Powder 17 Grams Packet PO 02/12/25 22:39
DAILYPRN PRN
constipation
Rivaroxaban 15 mg 01/16/25 08:00 01/20/25 09:44
Rivaroxaban 15 Mg Tablet PO 02/13/25 07:59 15 mg
DAILY ART Administration
Rivastigmine 4.6 mg 01/16/25 08:00 01/20/25 09:43
Rivastigmine (Exelon) 4.6 Mg Patch TRANSDERM 02/13/25 07:59 4.6 mg
DAILY ART Administration
Senna/Docusate Sodium 1 tablet 01/15/25 22:40
Docusate W/Senna (Iesha-Colace) Tablet PO 02/12/25 22:39
BIDPRN PRN
constipation
Sodium Chloride 0 flush 01/15/25 23:00
Sodium Chloride 0.9% (Flush) Syringe IV 02/12/25 22:59
PER PROTOCOL ART
[2025-01-20 09:37] VITALS: BP 176/85
[2025-01-20] MEDS: TOPROL XL 50 MG PO ×2 (09:43→21:16)
[2025-01-20] MEDS: OSCAL 500 + D 1000 MG PO (09:43)
[2025-01-20] MEDS: EXELON PATCH 4.6 MG TRANSDERM (09:43)
[2025-01-20] MEDS: TYLENOL 1000 MG PO ×2 (09:43→21:16)
[2025-01-20] MEDS: THERAGRAN PO (09:44)
[2025-01-20] MEDS: XARELTO 15 MG PO (09:44)
[2025-01-20 11:00] VITALS: BP 162/95
--- NOTE | 2025-01-20 14:44 | W.PN.HOSP.TC ---
Addendum entered and electronically signed by Sofiya Del Cid MD 01/20/25 20:21:
I saw and evaluated the patient independently. I reviewed and discussed the resident�s note and agree with findings and plan as documented by Dr. Bergman.
GENERAL: well developed, well nourished, female in no apparent distress
HEENT: NC/AT
HEART: regular rate and rhythm, +S1, +S2
LUNGS : clear to auscultation bilaterally
ABDOM: soft, nontender, nondistended, + bowel sounds
EXT: no cyanosis, clubbing, or edema
NEUROLOGIC: grossly intact
Ambulatory dysfunction--found to have new CVA along with MRI positive for severe spinal stenosis but no significant change from prior MRI sep 2023-- Hx stroke Nov 2024 hx spinal stenosis s/p laminectomy years ago- Orthostatic vitals neg- Vascular
ultrasound done today� Continue Xarelto 15mg po daily (although with being found by VN on the floor twice now, consider stopping anticoagulation due to fall risk), Atorvastatin 80 mg--PT/OT rec SNF--pt wants to go home--mental status with cognitive
decline (GORGE )
Depression/past suicidal ideation screening pos--Denies current HI/SI--Psych eval appreciated adjustment d/o w/ depression, antidepressant not indicated at this time
Atrial fibrillation�chronic atrial fibrillation on Xarelto� Continue Xarelto, appreciate case mgmt Joanna priced at 141.56/month, overarching concern however is if patient has been taking her medications correctly to begin with� Continue metoprolol
succinate--see above re: anticoagulation
Uncontrolled Hypothyroidism-TSH high T4 low�levothyroxine increased from 50 to 75 mcg (on discharge will recommend skipping Monday dosing given that dose was previously reduced for being too high)
Chronic HFpEF--no acute exacerbation--cont metoprolol--hold further lasix dosing for now, on low dose, consider switching to prn on discharge to ameliorate urinary frequency symptoms vs MWF dosing (especially given cognitive concerns) home potassium
supplementation discontinued while off Lasix--daily weight
DVT proph-- Xarelto
CODE STATUS�DNR
Original Note:
Today's Communication/Plan
-
Discussed the need for Inpatient/ SNF which patient declined
Discharge planning for Home with home health
Assessment / Plan
Assessment / Plan
Ms Mehta is an 89yr old female with a past medical history significant for hypertension, hypothyroid, atrial fibrillation on Xarelto who presented 5 days ago with complains of weakness and unsteadiness in her feet.
Her is significant for recurrent falls, last presented 2 months ago. At that time she was discharged to [facility] which she refused, stating that the nurses were rude to her did not want to take care of her.
PLAN:
# Ambulatory dysfunction
-Patient denied vertigo or lightheadedness but did have a sensation of leaning to 1 side which is similar to her prior episodes of falling.
- Hx stroke Nov 2024 hx spinal stenosis s/p laminectomy years ago
� Brain MRI appreciated new stroke 5.7 cm right lateral ventricle, MRI Lumbar spine noted severe spinal stenosis but no significant change from prior MRI sep 2023.
- Orthostatic vitals neg
- Vascular ultrasound done today
Calcified plaque within the left carotid bulb, measurements suggestive of less than 50% stenosis. Degree of stenosis may have been overestimated on prior CTA. Stenosis may be followed by serial carotid ultrasounds.
Minimal right carotid bulb plaque, measurements also suggestive of less than 50% stenosis.
� Continue Xarelto 15mg po daily, Atorvastatin 80 mg
� [facility] to w/ improvement in ambulatory function, ST however notes significant cognitive concerns MOCA , patient aware.
- Discussed with patient, stressed the need for in patient facility which she declined.
- Despite Cognitive decline, patient has capacity
- I attempted to give her sister a call, which she has consented to discuss discharge planning, called multiple times, unavailable, left and will call her back at 8am tomorrow
- Patient is made aware of this
# Depression/past suicidal ideation screening pos
-Denies current HI/SI
-Psych eval appreciated adjustment d/o w/ depression, antidepressant not indicated at this time
# Atrial fibrillation�chronic atrial fibrillation on Xarelto
� Continue Xarelto, appreciate case mgmt Joanna stovall at 141.56/month, overarching concern however is if patient has been taking her medications correctly to begin with
� Continue metoprolol succinate
# Uncontrol Hypothyroidism
-TSH high T4 low
�levothyroxine increased from 50 to 75 mcg (on discharge will recommend skipping Monday dosing given that dose was previously reduced for being too high)
# Chronic HFpEF
follows cardiology Dr Hahn
cont metoprolol
hold further lasix dosing for now, on low dose, consider switching to prn on discharge to ameliorate urinary frequency symptoms vs MWF dosing (especially given cognitive concerns)
home potassium supplementation discontinued while off Lasix
daily weight
DVT prophylaxis Xarelto
CODE STATUS�DNR
Dispo- [facility]
Anticipated Discharge: Within 24 hours
Subjective/Interval History
-
Date of Service: January 20, 2025
Patient seen.
No new complains.
She expresses the desire to be discharged home.
Objective Data
-
Labs:
Laboratory Results
01/20/25
05:19
WBC 3.5 L
Hgb 11.8 L
Hct 32.4 L
Plt Count 112 L
Sodium 136
Potassium 3.8
Chloride 106
Carbon Dioxide 25
BUN 12
Creatinine 0.7
Glucose 91
Calcium 9.3
Vital Signs:
Vital Signs
Temp Pulse Resp BP Pulse Ox
97.9 F 72 17 162/95 98
01/20/25 11:00 01/20/25 11:00 01/20/25 11:00 01/20/25 11:00 01/20/25 11:00
I&O
01/19/25 01/20/25 01/21/25
06:59 06:59 06:59
Intake Total 480 / 480 1260 / 1260
Balance 480 / 480 1260 / 1260
Physical Exam
-
General: Well Developed
HEENT: Normocephalic and Atraumatic
Respiratory: Clear to Auscultation
Cardiac: Regular Rhythm and S1/S2
GI: Soft, Nontender and Nondistended
Musculoskeletal: No Clubbing, No Cyanosis and No Edema
Skin: Warm and Dry
Psych: Calm
[2025-01-20 15:10] VITALS: BP 138/66
--- NOTE | 2025-01-20 15:46 | CM ---
Patient seen at bedside with physicians. Patient plan is for discharge home with VN. Concern regarding frequent falls and safety at home. Patient sister is covering for her son who is away on a ski vacation. Patient requested CM call [phone]
Sister Milena. CM left VM for sister. CM will continue to follow for discharge planning needs.
Plan; home with [facility] vs SNF; pending Medical treatment plan
[2025-01-20] MEDS: LIPITOR 80 MG PO (21:16)
[2025-01-20 23:00] VITALS: BP 119/72
[2025-01-21] MEDS: SYNTHROID 75 MCG PO (05:13)
[2025-01-21 06:00] VITALS: BMI 25.9
[2025-01-21 06:03] LABS: Blood Urea Nitrogen 19 mg/dl (7-17); Calcium 9.3 mg/dl (8.4-10.2); Carbon Dioxide 26 mmol/L (22-30); Chloride 107 mmol/L (98-107); Estimated Creatinine Clearance 42 ml/min; Glucose 89 mg/dl (70-99); Magnesium 1.8 mg/dl (1.6-2.3); Potassium 4.0 mmol/L (3.5-5.1); Sodium 136 mmol/L (135-145); eGFR > 60.00
[2025-01-21 06:17] LABS: Hematocrit 31.4 % (37.0-47.0); Hemoglobin 11.4 g/dL (12.0-16.0); Mean Corp Hgb Conc. 36.3 g/dL (33.0-37.0); Mean Corpuscular Volume 105.7 fL (81.0-99.0); Platelet Count 95 10^3/uL (130-400); Red Cell Dist. Width 13.3 % (11.5-14.5)
[2025-01-21 07:00] VITALS: BP 138/63
[2025-01-21] MEDS: EXELON PATCH 4.6 MG TRANSDERM (08:08)
[2025-01-21] MEDS: XARELTO 15 MG PO (08:11)
[2025-01-21] MEDS: OSCAL 500 + D 1000 MG PO (08:11)
[2025-01-21] MEDS: TOPROL XL 50 MG PO ×2 (08:12→20:44)
[2025-01-21] MEDS: TYLENOL 1000 MG PO ×2 (08:12→20:44)
--- NOTE | 2025-01-21 08:39 | W.PN.HOSP.TC ---
Addendum entered and electronically signed by Sofiya Del Cid MD 01/21/25 18:14:
I saw and evaluated the patient independently. I reviewed and discussed the resident�s note and agree with findings and plan as documented by Dr. Bergman.
GENERAL: well developed, well nourished, female in no apparent distress
HEENT: NC/AT
HEART: regular rate and rhythm, +S1, +S2
LUNGS : clear to auscultation bilaterally
ABDOM: soft, nontender, nondistended, + bowel sounds
EXT: no cyanosis, clubbing, or edema
NEUROLOGIC: grossly intact
Ambulatory dysfunction--found to have new CVA along with MRI positive for severe spinal stenosis but no significant change from prior MRI sep 2023-- Hx stroke Nov 2024 hx spinal stenosis s/p laminectomy years ago- Orthostatic vitals neg- Vascular
ultrasound with < 50% stenosis in bilateral internal carotid arteries� Continue Xarelto 15mg po daily (although with being found by VN on the floor twice now, consider stopping anticoagulation due to fall risk), Atorvastatin 80 mg--PT/OT rec SNF--pt
wants to go home--mental status with cognitive decline (GORGE )
Depression/past suicidal ideation screening pos--Denies current HI/SI--Psych eval appreciated adjustment d/o w/ depression, antidepressant not indicated at this time
Chronic atrial fibrillation on Xarelto� Continue Xarelto, appreciate case mgmt Joanna priced at 141.56/month, overarching concern however is if patient has been taking her medications correctly to begin with� Continue metoprolol succinate--see
above re: anticoagulation
Uncontrolled Hypothyroidism-TSH high T4 low�levothyroxine increased from 50 to 75 mcg (on discharge will recommend skipping Monday dosing given that dose was previously reduced for being too high)
Chronic HFpEF--no acute exacerbation--cont metoprolol--hold further lasix dosing for now, on low dose, consider switching to prn on discharge to ameliorate urinary frequency symptoms vs MWF dosing (especially given cognitive concerns) home potassium
supplementation discontinued while off Lasix--daily weight
DVT proph-- Xarelto
CODE STATUS�DNR
OK for D/C to home but pt does not have gillespie fob to get into the house--hold d/c until AM
Original Note:
Today's Communication/Plan
-
She can be discharged home as she requested
Assessment / Plan
Assessment / Plan
Ms Mehta is an 89yr old female with a past medical history significant for hypertension, hypothyroid, atrial fibrillation on Xarelto who presented 6 days ago with complains of weakness and unsteadiness in her feet.
Her is significant for recurrent falls, last presented 2 months ago. At that time she was discharged to [facility] which she refused, stating that the nurses were rude to her did not want to take care of her.
PLAN:
# Ambulatory dysfunction
-Patient denied vertigo or lightheadedness but did have a sensation of leaning to 1 side which is similar to her prior episodes of falling.
- Hx stroke Nov 2024 hx spinal stenosis s/p laminectomy years ago
� Brain MRI appreciated new stroke 5.7 cm right lateral ventricle, MRI Lumbar spine noted severe spinal stenosis but no significant change from prior MRI sep 2023.
- Orthostatic vitals neg
� PT/OT initial recc SNF rehab updated to w/ improvement in ambulatory function, ST however notes significant cognitive concerns MOCA 16/30, patient aware.
- Discussed with patient, stressed the need for in patient facility which she declined.
- Despite Cognitive decline, patient has capacity
- I spoke to her sister today, she is made aware of the plan and understands the risks, but wants to do what her sister wants. The earliest she can pick her up is tomorrow.
-Arrangement is to be made for VN/PT/OT at home
# Acute cerebrovascular event
-Instability in her feet
-Brain MRI appreciated new stroke 5.7 cm right lateral ventricle
-Vascular ultrasound done today
Calcified plaque within the left carotid bulb, measurements suggestive of less than 50% stenosis. Degree of stenosis may have been overestimated on prior CTA. Stenosis may be followed by serial carotid ultrasounds.
Minimal right carotid bulb plaque, measurements also suggestive of less than 50% stenosis.
-Continue Xarelto, Atorvastatin 80mg for now
# Depression/past suicidal ideation screening pos
-Denies current HI/SI
-Psych eval appreciated adjustment d/o w/ depression, antidepressant not indicated at this time
# Chronic Atrial fibrillation�on Xarelto
� Continue Xarelto, appreciate case mgmt Joanna stovall at 141.56/month, overarching concern however is if patient has been taking her medications correctly to begin with
� Continue metoprolol succinate
# Uncontrol Hypothyroidism
- On Levothyroxine 75mcg, recommends skipping Monday dose
# Chronic HFpEF
follows cardiology Dr Hahn
cont metoprolol
Lasix dosing for now, on low dose, consider switching to prn on discharge to ameliorate urinary frequency symptoms vs MWF dosing (especially given cognitive concerns)
home potassium supplementation discontinued while off Lasix
daily weight
DVT prophylaxis Xarelto
CODE STATUS�DNR
Dispo- [facility]
Anticipated Discharge: Within 24 hours
Subjective/Interval History
-
Date of Service: January 21, 2025
No new complains today.
Objective Data
-
Labs:
Laboratory Results
01/21/25
05:10
WBC 3.8 L
Hgb 11.4 L
Hct 31.4 L
Plt Count 95 L
Sodium 136
Potassium 4.0
Chloride 107
Carbon Dioxide 26
BUN 19 H
Creatinine 0.8
Glucose 89
Calcium 9.3
Vital Signs:
Vital Signs
Temp Pulse Resp BP Pulse Ox
97.5 F 70 16 138/63 98
01/21/25 07:00 01/21/25 08:12 01/21/25 07:00 01/21/25 08:12 01/21/25 07:00
I&O
01/20/25 01/21/25 01/22/25
06:59 06:59 06:59
Intake Total 1260 / 1260 960 / 960
Balance 1260 / 1260 960 / 960
Review of Systems
-
Genitourinary: Reports Incontinence
Physical Exam
-
General: No Apparent Distress
HEENT: Normocephalic and Atraumatic
Respiratory: Clear to Auscultation
Cardiac: S1/S2
GI: Soft, Nontender, Nondistended and Normal Bowel Sounds
Musculoskeletal: No Clubbing and Other (Visible varicose veins)
Neuro: Awake and Alert
Psych: Other (Calm, but expresses sadness about being in the hospital and wants to go home)
[2025-01-21 09:18] VITALS: BP 156/76; PULSE 73
[2025-01-21 15:19] VITALS: BP 171/100
--- NOTE | 2025-01-21 15:40 | CM ---
Addendum entered by Yin Walker 01/21/25 17:16:
patient for transportation with wheelchair van at 18;00 if family unable to transport patient home.
Original Note:
Patient seen at bedside with physicians. Patient wants to go home. Patient sister now not able to pick her up until tomorrow. patient in tears but states she will call her daughter in law to see if she can take her home. Referral to [facility] for
supports at home sent. Patient for follow up with Siomara, requested social work to be added if possible. Patient would be able to go home as she has keys, CM reviewed what was available to eat and supports available to her. CM will follow up with
patient to set up wheelchair van if needed. CM will continue to follow for discharge planning needs.
Plan; home with Siomara
[2025-01-21] MEDS: LIPITOR 80 MG PO (20:53)
[2025-01-21 23:22] VITALS: BP 143/74
[2025-01-22 05:02] VITALS: BMI 26.0
[2025-01-22 05:51] LABS: Hematocrit 32.3 % (37.0-47.0); Hemoglobin 11.1 g/dL (12.0-16.0); Mean Corp Hgb Conc. 34.4 g/dL (33.0-37.0); Mean Corpuscular Volume 106.3 fL (81.0-99.0); Platelet Count 105 10^3/uL (130-400); Red Cell Dist. Width 13.4 % (11.5-14.5)
[2025-01-22] MEDS: SYNTHROID 75 MCG PO (05:54)
[2025-01-22 06:13] LABS: Blood Urea Nitrogen 17 mg/dl (7-17); Calcium 9.1 mg/dl (8.4-10.2); Carbon Dioxide 27 mmol/L (22-30); Chloride 106 mmol/L (98-107); Estimated Creatinine Clearance 48 ml/min; Glucose 83 mg/dl (70-99); Magnesium 1.8 mg/dl (1.6-2.3); Potassium 4.0 mmol/L (3.5-5.1); Sodium 136 mmol/L (135-145); eGFR > 60.00
[2025-01-22 07:29] VITALS: BP 167/84
[2025-01-22] MEDS: TYLENOL 1000 MG PO (08:06)
[2025-01-22] MEDS: TOPROL XL 50 MG PO (08:06)
[2025-01-22] MEDS: XARELTO 15 MG PO (08:06)
[2025-01-22] MEDS: EXELON PATCH 4.6 MG TRANSDERM (08:06)
[2025-01-22] MEDS: OSCAL 500 + D 1000 MG PO (08:07)
[2025-01-22 09:38] VITALS: BP 154/72; PULSE 72; O2SAT 99
--- NOTE | 2025-01-22 09:40 | W.PN.HOSP.TC ---
Addendum entered and electronically signed by Sofiya Del Cid MD 01/22/25 17:18:
I saw and evaluated the patient independently. I reviewed and discussed the resident�s note and agree with findings and plan as documented by Dr. Bergman.
GENERAL: well developed, well nourished, female in no apparent distress
HEENT: NC/AT
HEART: regular rate and rhythm, +S1, +S2
LUNGS : clear to auscultation bilaterally
ABDOM: soft, nontender, nondistended, + bowel sounds
EXT: no cyanosis, clubbing, or edema
NEUROLOGIC: grossly intact
Ambulatory dysfunction--found to have new CVA along with MRI positive for severe spinal stenosis but no significant change from prior MRI sep 2023-- Hx stroke Nov 2024 hx spinal stenosis s/p laminectomy years ago- Orthostatic vitals neg- Vascular
ultrasound with < 50% stenosis in bilateral internal carotid arteries� Continue Xarelto 15mg po daily (although with being found by VN on the floor twice now, consider stopping anticoagulation due to fall risk), Atorvastatin 80 mg--PT/OT rec SNF--pt
wants to go home--mental status with cognitive decline (MOCA )
Depression/past suicidal ideation screening pos--Denies current HI/SI--Psych eval appreciated adjustment d/o w/ depression, antidepressant not indicated at this time
Chronic atrial fibrillation on Xarelto� Continue Xarelto, appreciate case mgmt Joanna pricemajo at 141.56/month, overarching concern however is if patient has been taking her medications correctly to begin with� Continue metoprolol succinate--see
above re: anticoagulation
Uncontrolled Hypothyroidism-TSH high T4 low�levothyroxine increased from 50 to 75 mcg (on discharge will recommend skipping Monday dosing given that dose was previously reduced for being too high)
Chronic HFpEF--no acute exacerbation--cont metoprolol--hold further lasix dosing for now, on low dose, consider switching to prn on discharge to ameliorate urinary frequency symptoms vs MWF dosing (especially given cognitive concerns) home potassium
supplementation discontinued while off Lasix--daily weight
DVT proph-- Xarelto
CODE STATUS�DNR
OK for D/C to home
Original Note:
Today's Communication/Plan
-
Patient to be discharged today back to home
Short fu with Primary care, Cardiologsy and Neurology
Assessment / Plan
Assessment / Plan
Ms Haney is an 89yr old female with a past medical history significant for hypertension, hypothyroid, atrial fibrillation on Xarelto who presented 6 days ago with complains of weakness and unsteadiness in her feet.
Her is significant for recurrent falls, last presented 2 months ago.
At that time she was discharged to [facility] which she refused, stating that the nurses were rude to her did not want to take care of her.
PLAN:
# Ambulatory dysfunction
-Patient denied vertigo or lightheadedness but did have a sensation of leaning to 1 side which is similar to her prior episodes of falling.
- Hx stroke Nov 2024 hx spinal stenosis s/p laminectomy years ago
� Brain MRI appreciated new stroke 5.7 cm right lateral ventricle, MRI Lumbar spine noted severe spinal stenosis but no significant change from prior MRI sep 2023.
- Orthostatic vitals neg
� PT/OT initial recc SNF rehab updated to HH w/ improvement in ambulatory function, ST however notes significant cognitive concerns MOCA 16/30, patient aware.
- Discussed with patient, stressed the need for in patient facility which she declined.
- Despite Cognitive decline, patient has capacity
- I spoke to her sister today, she is made aware of the plan and understands the risks, but wants to do what her sister wants. The earliest she can pick her up is today..
-Arrangement is to be made for VN/PT/OT at home
# Acute cerebrovascular event
-Instability in her feet
-Brain MRI appreciated new stroke 5.7 cm right lateral ventricle
-Vascular ultrasound done today
Calcified plaque within the left carotid bulb, measurements suggestive of less than 50% stenosis. Degree of stenosis may have been overestimated on prior CTA. Stenosis may be followed by serial carotid ultrasounds.
Minimal right carotid bulb plaque, measurements also suggestive of less than 50% stenosis.
-Continue Xarelto, Atorvastatin 80mg for now
# Depression/past suicidal ideation screening pos
-Denies current HI/SI
-Psych eval appreciated adjustment d/o w/ depression, antidepressant not indicated at this time
# Chronic Atrial fibrillation�on Xarelto
� Continue Xarelto, appreciate case mgmt Joanna stovall at 141.56/month, overarching concern however is if patient has been taking her medications correctly to begin with
- Continue meds as prior to discharge
- Short fu with primary to discuss concerns of medications
� Continue metoprolol succinate
# Uncontrol Hypothyroidism
- On Levothyroxine 75mcg, recommends skipping Monday dose
# Chronic HFpEF
follows cardiology Dr Hahn
cont metoprolol
Resume Lasix MWF, She says she will get help with medication dosing
Resume home Potassium
daily weight
She is recommended again go be discharged to a skilled facility and declines. Though she has some cognitive impairment which she admits to she has decision making capacity
She is being discharged home and arrangement is being made for home care with VN/OT/PT. Meals on wheels arrangement being made by her sister.
This plan has been communicated to her sister, Milena and is in agreement, as she says she wants to do what her sister wants.
I called her son Chidi, no answer left VM for a call back.
CODE STATUS�DNR
Dispo- [facility]
Anticipated Discharge: Today
Subjective/Interval History
-
Date of Service: January 22, 2025
No new complains today.
Objective Data
-
Labs:
Laboratory Results
01/22/25
05:15
WBC 3.1 L
Hgb 11.1 L
Hct 32.3 L
Plt Count 105 L
Sodium 136
Potassium 4.0
Chloride 106
Carbon Dioxide 27
BUN 17
Creatinine 0.7
Glucose 83
Calcium 9.1
Vital Signs:
Vital Signs
Temp Pulse Resp BP Pulse Ox
97.4 F 67 16 167/84 98
01/22/25 07:29 01/22/25 07:29 01/22/25 07:29 01/22/25 07:29 01/22/25 07:29
I&O
01/21/25 01/22/25 01/23/25
06:59 06:59 06:59
Intake Total 960 / 960 700 / 700
Balance 960 / 960 700 / 700
Physical Exam
-
General: Well Developed and No Apparent Distress
Respiratory: Clear to Auscultation
Cardiac: S1/S2
GI: Soft, Nontender, Nondistended, Normal Bowel Sounds and No Hernias (Midline)
Musculoskeletal: No Clubbing, No Cyanosis and No Edema
Neuro: Awake, Alert, Oriented and Nonfocal/Grossly Intact
[2025-01-22 11:48] VITALS: BP 120/57
--- NOTE | 2025-01-22 12:23 | CM ---
CM spoke with patient son via phone and he is aware of referral to [facility] and [facility] and family to transport patient home. CM will continue to follow for discharge planning needs.
Plan; home with [facility] and [facility] follow up.
--- NOTE | 2025-01-22 13:32 | W.DCSUMMARY ---
Addendum entered and electronically signed by Sofiya Del Cid MD 01/23/25 07:03:
Read, reviewed, and agree. See same day progress note for additional details. Time spent coordinating care, DC planning, review of DC plan of care with resident, transition of care, review of records in EMR, med rec, consults, notes, d/w
consultants, nursing, family, and CM = 29 minutes
Original Note:
Discharge Summary
Discharge Data
Date of Admission: 01/18/25
Date of Discharge: 01/22/25
-
Pending Results: No
Hospital Course
Discharging Physician : Debi Bergman MD, Maria Eugenia DONALD,Sofiya Stone
Disposition : Home with home health
Primary care physician : Sravani Pelaez
Principal Discharge diagnosis :
Ambulatory dysfunction
Acute cerebrovascular event
H/O Of depression with Suicidal ideation
Chronic Atrial fibrillation
Chronic Heart Failure with preserved Ejection Fraction
Chronic Discharge diagnosis :
Uncontrol Hypothyroidism
Overactive bladder
Bilateral carotid atherosclerosis
Hospital Course :
Ms Haney is an 89yr old female with past medical history of CVA, atrial fibrillation, hypertension, hyperlipidemia, hypothyroidism who presented to the [facility] on 01/15/2025 with complains of generalized weakness, malaise, feeling flushed, headaches
and concerns of multiple near falls.
On presentation to the ED, she was in no apparent distress, arrhythmic tachycardic heart rate and no focal neurological deficits.
She was subsequently admitted and was managed in consultation with neurology and psychiatry
She had no obvious neurological deficits on presentation, she has several investigations done:head CT, CTA head and neck, lumbar MRI, CTA head and neck, brain MRI and vascular ultrasound.
CTA showed no acute infarct however MRI showed an infarcts superior to the right lateral ventricle.
She did not receive thrombolysis, as she presented outside of the therapeutic window.
Her atorvastatin was increased to 80 mg daily.
She was also seen by this psychiatrist due to history of suicidal ideation, however no clinical depression at this time.
She was evaluated by speech therapist during this admissions, MOCA as of 01/19/2025 was 16/30.
She was clinically stable and was planned to be discharged to an acute care facility however patient stresses her desire to go back home instead.
She is to have a short follow up with her primary care, improvement coordinator and neurologist.
Important imaging findings :
Head CT W/O contrast 01/15/2025
No evidence of acute intracranial abnormality.
Mild to moderate atrophy is present.
Mild to moderate stable leukomalacia.
Head CTA 01/18/2025
Small old right periventricular lacunar infarct. Stable
Mild atrophy. Mild periventricular small vessel ischemic disease.
Mild acute left maxillary sinusitis.
No acute vascular pathology. No M1 and M2 occlusion.
Greater than 70% distal left common carotid and proximal left internal carotid artery stenosis
Multilevel degenerative disc disease. Malalignment as described above. Stable
MR Lumbar W/o & With Contrast 01/18/2025
SEVERE CENTRAL CANAL STENOSIS at L3/L4 and L4/L5.
3 mm grade 1 anterolisthesis of L3 on L4 secondary to SEVERE FACET JOINT ARTHROSIS.
9 mm GRADE 2 ANTEROLISTHESIS of L4 on L5 secondary to SEVERE FACET JOINT ARTHROSIS.
Moderate to severe discogenic degenerative disease and severe bilateral neural foraminal narrowing at L4/L5.
Previous L4 laminectomy.
Mild central canal stenosis and moderate right lateral recess stenosis at L5/S1.
Moderately exaggerated lumbar lordosis.
MR Brain Without Contrast 01/18/2025
Small 5.7 mm acute ischemic infarct located adjacent to the body of the right lateral ventricle just superior to the previously visualized 7.6 mm now chronic periventricular infarct.
8 mm chronic lacunar infarct in the left thalamus.
Moderate white matter leukoaraiosis in the frontal and parietal lobes.
Moderate diffuse cerebral and cerebellar volume loss.
Moderate-sized disc herniation at C2/C3 causing moderate spinal cord compression and central canal stenosis.
Carotid Ultrasound 01/20/2025
Calcified plaque within the left carotid bulb, measurements suggestive of less than 50% stenosis. Degree of stenosis may have been overestimated on prior CTA. Stenosis may be followed by serial carotid ultrasounds.
Minimal right carotid bulb plaque, measurements also suggestive of less than 50% stenosis.
Discharge Plan
-
Patient Disposition: Home with Home Care
Discharge Diagnosis/Procedures: Ambulatory dysfunction
Acute cerebrovascular event
H/O Of depression with Suicidal ideation
Chronic Atrial fibrillation
Uncontrol Hypothyroidism
Chronic Heart Failure with preserved Ejection Fraction
Dementia (Worsening cognitive function)
Condition: Fair
Diet: 2 Gram Sodium and Restrict fluids to 64 oz
Activity: As tolerated
Driving Restrictions: Not until seen by your Dr
Other Services: VN, PT and OT
Referrals:
Sravani Pelaez CRNP [Family Provider, Internal Medicine]
Tray Sorensen III, MD [Active, Vascular Surgery] - 02/13/25 9:30 am
Referral Note: Vascular surgery follow-up for asymptomatic carotid stenosis
Additional Discharge Medication Instructions: Your Levothyroxine was increased to 75mcg in this admission due to uncontrolled hypothyroidism, you will need to skip Monday dose to prevent your thyroid hormones from being to high. Continue to take in
the morning at 6am on an empty stomach.
Continue to take your Atorvastatin was increased to 80mg in this admission, continue to take this medication by mouth at night.
You have been prescribed Xarelto for Clotting prevention, ensure you take this medication daily.
Your Lasix was held during this admission, you can resume the on Monday, Monday and Monday.
Call your Drs office with symptoms of fluid overload like feet swelling, weight gain, chest discomfort.
Continue your potassium medications as the Lasix can reduce your potassium
Continue to take your Metoprolol 50mg tablet twice daily by mouth.
You will need to continue with Physical therapy, Occupational therapy at home.
Prescriptions:
New
Xarelto 15 mg Tablet
15 mg PO DAILY Qty: 30 0RF
atorvastatin 80 mg Tablet
80 mg PO HS Qty: 30 0RF
levothyroxine 75 mcg Tablet
75 mcg PO DAILY @ 0600 Qty: 28 0RF
Continued
furosemide 20 MG tablet
20 mg PO DAILY
potassium chloride 20 MEQ tablet,ER particles/crystals
20 meq PO BID
acetaminophen 500 mg Tablet
1,000 mg PO BID
calcium carbonate-vitamin D3 [Calcium 600 + D(3)] 600 mg-10 mcg (400 unit) Tablet
2 tab PO DAILY
metoprolol succinate 50 mg tablet extended release 24 hr
50 mg PO BID
rivastigmine 4.6 mg/24 hour Patch 24 Hour
4.6 mg TRANSDERMAL DAILY
therapeutic multivitamin Tablet
1 tab PO DAILY
Discontinued
atorvastatin 10 MG tablet
10 mg PO HS
Xarelto 20 mg Tablet
20 mg PO DAILY
levothyroxine 50 mcg Tablet
50 mcg PO DAILY @ 0600 Qty: 30 0RF
Discharge Orders:
Discharge Patient (As Directed); Ordered 01/22/25
Ordered By: Debi Bergman
Discharge Date and Time
Discharge Date/Time: 01/22/25 13:22
Print Language: CROATIAN
== END 2025-01-22 13:22 | disposition home health service (06) | DRG 65 ==
LOC: 3 WEST ACU 14:18
PROVIDERS: Emergency Medicine; Internal Medicine; Physician Assistant Medical; ADMITTING PHYSICIAN Internal Medicine; ATTENDING PHYSICIAN Internal Medicine; CONSULT PHYSICIAN Psychiatry & Neurology Psychiatry; CONSULT PHYSICIAN Student in an Organized Health Care Education/Training Program; EMERGENCY PHYSICIAN Student in an Organized Health Care Education/Training Program; FAMILY PHYSICIAN Nurse Practitioner Primary Care
DX: I63.9 Cerebral infarction, unspecified (principal); I48.21 Permanent atrial fibrillation; I50.32 Chronic diastolic (congestive) heart failure; R45.851 Suicidal ideations; Z11.52 Encounter for screening for COVID-19; Z66 Do not resuscitate; F43.21 Adjustment disorder with depressed mood; F32.A Depression, unspecified; E03.9 Hypothyroidism, unspecified; R26.2 Difficulty in walking, not elsewhere classified; N32.81 Overactive bladder; I65.23 Occlusion and stenosis of bilateral carotid arteries; I11.0 Hypertensive heart disease with heart failure; Z79.01 Long term (current) use of anticoagulants
CPT/HCPCS: 70450; 70496; 70498; 70551; 72158; 80048; 80053; 80061; 82607; 82728; 82746; 83036; 83540; 83550; 83735; 84100; 84439; 84443; 85025; 85027; 87502; 87811; 92523; 92610; 93005; 93880; 97166; 97530; A9575; Q9967